=== PATIENT | female | born 1940 | race Caucasian/White ===

== ENCOUNTER 2016-02-23 12:50 | Observation (INO) | payer OTHER ==
[~2016-02-23] VITALS: Ht 160 cm; Wt 65.5 kg
--- NOTE | ~2016-02-23 | H ---
[facility] [place] [address] HISTORY AND PHYSICAL Name: VICENTE TORRES Room #: 427-P [facility].Daniella#: [id number] Admission: 02/23/16 Attend Phys: Dylan Fry MD Discharge: Date of : 44 Report #: [id number] THIS REPORT FOR: //name// CC: Neel Pena MD [facility] Jorge Fry DATE OF SERVICE: 02/23/2016 CHIEF COMPLAINT: Chest pain. HISTORY OF PRESENT ILLNESS: The patient is a 75-year-old female with history of severe peripheral vascular disease, COPD, smoking, ex-smoker, presented to the Emergency Room complaining of chest pain. Chest pain started at around 12:30 this afternoon while she was watching television. It was a sharp pain over the lower with radiation to the back and to the neck. Also, had mild shortness of breath. No cough expectoration. No fever or chills, no recent weight loss, weight gain. No nausea or vomiting. Workup in the Emergency Room, EKG showed left bundle-branch block and also normal troponin. The patient has severe peripheral vascular disease, has multiple stents in the subclavian and also in the lower extremity. She had coronary angiogram in 2011 which showed normal ejection fraction and normal coronary anatomy with the exception of minimal plaquing in the left anterior descending artery. PAST MEDICAL HISTORY: Significant for COPD, peripheral vascular disease, dyslipidemia, prior pneumonia, hysterectomy, multiple stents x 5 in peripheral vascular disease. No history of any peptic ulcer disease, bleeding disorder, no diabetes, no CVA. SOCIAL HISTORY: She is a former smoker, quit around 3-4 years ago. No history of alcohol abuse or illicit drug abuse. The patient lives alone. ALLERGIES: SHE IS ALLERGIC TO MORPHINE AND ADENOSINE. Please look at the nursing documentation for allergic reaction. HOME MEDICATIONS: Reviewed. FAMILY HISTORY: Significant for hypertension. No premature coronary artery disease. Mother had heart failure. REVIEW OF SYSTEMS: CONSTITUTIONAL: No recent weight loss, weight gain. EYES: No fever or chills. No change in vision. THROAT: Denies any sore throat. CARDIOVASCULAR: As above. No dizziness, palpitations. RESPIRATORY: No cough, expectoration. [facility] [address] [place] [address] HISTORY AND PHYSICAL Name: VICENTE TORRES Room #: 427-P [facility] Matthias#: [id number] Admission: 02/23/16 Attend Phys: Dylan Fry MD Discharge: Date of : 42 Report #: [id number] GASTROINTESTINAL: No nausea, vomiting, abdominal pain. GENITOURINARY: No dysuria, hematuria. NEUROLOGIC: No focal numbness or weakness of the extremities. PSYCHIATRIC: No anxiety or depression. A 12-point review of system is negative other than the positive and the negative dictated in the history of present illness and the review of system. PHYSICAL EXAMINATION: VITAL SIGNS: Blood pressure 164/97. Heart rate of 60 per minute, afebrile. GENERAL: The patient is awake and alert, not in acute respiratory distress. She rates her pain 2/10 at present, not in acute respiratory distress. HEENT: Pupils equal, reactive to light, nonicteric, conjunctivae. NECK: Supple, no JVD, no bruit, no lymphadenopathy. CARDIOVASCULAR SYSTEM: S1, S2, negative S3, no murmur. CHEST: Bilateral air entry present, clear to auscultation. ABDOMEN: Soft, bowel sounds present, no mass, no organomegaly, no tenderness. PERIPHERY: No pedal edema. No calf tenderness. Dorsalis pedis feeble to 1+ bilaterally, warm extremity. NEUROLOGICAL: No gross motor or sensory deficit. LABORATORY DATA: Reviewed. EKG showed sinus rhythm with left bundle-branch block. Magnesium is 1.2. Troponin has been negative so far. IMAGING: Chest x-ray showed no acute abnormality. There is mild bilateral diffuse interstitial pulmonary infiltrate. White count is 10.8, hemoglobin is 10.7, platelet is 204. BUN and creatinine are 32 and 1.2. Potassium is normal with a magnesium of 1.2. ASSESSMENT: 1. Chest pain, possible angina. The patient has multiple risk factors for coronary artery disease. She has an extensive history of peripheral vascular disease. 1. The patient will be admitted to the telemetry floor. She will have serial troponin. We will place her on aspirin and Lovenox. She will be continued on Plavix. We will consult Community Engagement Leader, Dr. Pena. 2. Peripheral vascular disease. The patient will be continued on Plavix. 3. Dyslipidemia. We will check her lipids in the morning. The patient will be continued on atorvastatin. 4. History of chronic obstructive pulmonary disease. The patient will be placed on DuoNeb treatment every 6 hours. 5. Hypomagnesemia. Magnesium has been replaced. We will check magnesium in the morning. 6. Deep venous thrombosis prophylaxis. She will be placed on Lovenox. [facility] [address] [place] [address] HISTORY AND PHYSICAL Name: VICENTE TORRES Room #: 427-P [facility] Oleg Rizzo#: [id number] Admission: 02/23/16 Attend Phys: Dylan Fry MD Discharge: Date of : 42 Report #: [id number] Treatment plan has been explained to the patient in detail. <ELECTRONICALLY SIGNED> By: Dylan Fry MD 02/23/16 1657 1457 1652 Dylan Fry MD /nt
--- NOTE | ~2016-02-23 | EKG ---
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
--- NOTE | ~2016-02-23 | HC ---
[facility] [place] [address] CONSULTATION Name: VICENTE TORRES Room #: 427-P [facility] Oleg Rizzo#: [id number] Admission: 02/23/16 Attend Phys: Dylan Fry MD Discharge: 02/24/16 Date of : 42 Report #: [id number] THIS REPORT FOR: //name// CC: Donn Fry HISTORY OF PRESENT ILLNESS: A 75-year-old female well known to myself. She is known to have only mild coronary disease, but significant peripheral vascular disease with a prior subclavian stent and SMA and celiac stents placed by myself and Dr. Wooten. The last cardiac catheterization was 02/2014. There was no significant occlusive coronary artery disease. Had not progressed since the last catheterization done in the hospital here in 2011. This catheterization was performed at [facility]. She has been compliant with her medications. However, she had an onset, while being frustrated by her computer today, of right-sided chest pain up into her right side of her neck. Given an aspirin by paramedics, refused nitroglycerin and pain free currently with negative enzymes. EKG is a low sinus rhythm with left bundle branch block and this has been previously noted, so there are no changes there. She had been compliant with her medications. She quit smoking 5 years ago. I saw her last in June of last year. She is on Lipitor, Estradiol, Proventil, Ropinirole, Plavix, Spiriva, CoQ10, prednisone, Benicar/HCT 20/12.5 and multivites. Laboratory work was relatively unremarkable here. LABORATORY DATA: Creatinine 1.1, potassium 4.3. Troponin is negative x 2, GFR 49. Lipids were favorable with an LDL of 52. Total cholesterol 160, H are H is 10.7 and 31.7, white count 10.1. Chest x-ray shows mild bilateral pulmonary infiltrates, possible some underlying pulmonary fibrosis. She does have longstanding tobacco, COPD. PAST MEDICAL HISTORY: Positive for the mild coronary disease from a catheterization in 02/2014; peripheral vascular disease with celiac, SMA and subclavian stents; COPD; hypertension; hypercholesterolemia; hysterectomy; appendectomy; cystocele; bladder surgery; cataracts; and tonsillectomy. SOCIAL HISTORY: She lives independently quit smoking 5 years ago. No alcohol. She is . FAMILY HISTORY: Negative for premature coronary disease. Mother did have some disease, but older. REVIEW OF SYSTEMS: Essentially negative except for stated above. PHYSICAL EXAMINATION: VITAL SIGNS: Blood pressure is 160/78, pulse 60s. HEENT: Eyes reveal xanthelasmas. Pharynx is clear. NECK: Shows preserved upstrokes without JVD or bruits. LUNGS: Slight prolonged expiratory phase, few fine basilar crackles. [facility] [address] [place] [address] CONSULTATION Name: VICENTE TORRES Room #: 427-P SHANEKA Rizzo#: [id number] Admission: 02/23/16 Attend Phys: Dylan Fry MD Discharge: 02/24/16 Date of : 44 Report #: [id number] CARDIOVASCULAR: Regular rate and rhythm, S1, S2 distant. ABDOMEN: Soft. No HSM or abdominal bruit. EXTREMITIES: Reveal distal pulses diminished, but intact. NEUROLOGIC: Nonfocal. SKIN: Warm and dry without xanthoma or ulcer. MUSCULOSKELETAL: Generalized arthritic changes. I did not ambulate her. ASSESSMENT: 1. Chest pain. I suspect noncardiac with cardiac catheterization last couple of years without significant disease and no progression from a catheterization in 2011. 2. Peripheral vascular disease with history of subclavian, superior mesenteric artery, and celiac stents. 3. Hypertension. 4. Hypercholesterolemia. 5. Chronic obstructive pulmonary disease. 6. Restless legs. 7. Prior heavy tobacco use. 8. Degenerative joint disease. RECOMMENDATIONS AND PLAN: I doubt we would need any further troponins, etiology of her pain may be of GI, possibly had a PPI, this does not appear to be cardiac. However, we will reevaluate in the morning if pain free and ambulating, will discharge and outpatient stress testing. I will discuss with Hospitalist Service in the a.m. and now is well known to myself and I will follow her up outpatient only. <ELECTRONICALLY SIGNED> By: Neel Pena MD, FACC 02/28/16 0936 1948 0344 Neel Pena MD, FACC /nt
[2016-02-23 12:50] VITALS: BP 158/55
[~2016-02-23 12:50] MED LIST: ACCUNEB SO1.25 MG/1 INH; ALBUTEROL NEB; ASPIRIN325 PO; ASPIRIN81 M2 PO; BENICAR HCT 201 EACH PO; BENICAR20 MG PO; CALCIUM 600 +1 EAC7 PO; CALCIUM W/VIT1 EACH PO; CARDIZEM CD180 MG PO; CARDIZEM CD240 MG PO; COLACE100 MG PO; COMBIVENT INH; ENABLEX15 MG PO; ESTRACE0.5 MG PO; FENOFIBRATE160 MG PO; FISH OIL 1,0001 EAC5 PO; FISH OIL 1,001000 M2 PO; LIPITOR10 MG PO; LOPRESSOR25 PO; METAMUCIL PAC1 UDPKT PO; METAMUCIL0.52 GM; MULTIVITAMIN PO; MULTIVITAMINS1 EAC7; OMEPRAZOLE40 MG PO; PHENERGAN 25 MG25 M1 PO; PLAVIX 75 MG TA75 M1 PO; PLAVIX 75 MG TA75 MG PO; PREDNISONE 5 MG5 M1 PO; PREDNISONE 5 MG5 MG PO; PREMARIN0.3 MG PO; PROAIR HFA8.5 GM; PROVENTIL; SEREVENT DISKU50 MCG IH; SPIRIVA INH; STOOL SOFTENER50 MG; TOPROL XL50 MG PO; TOVIAZ4 M1 PO; TOVIAZ8 MG PO; XANAX 0.25 MG0.25 MG PO
[2016-02-23 13:09] LABS: HEMATOCRIT 31.2 % (37.0-47.0); HEMOGLOBIN 10.7 gm/dL (12.0-15.0); MCH 32.1 pg (26.0-34.0); MCHC 34.2 % (28.0-37.0); MCV 93.9 fL (80.0-100.0); PLATELET COUNT 204 thou/uL (150-400); RBC 3.32 mil/uL (4.20-5.00); RDW 13.5 % (10.5-14.5); WBC 10.1 thou/uL (4.0-11.0)
[2016-02-23 13:11] LABS: MANUAL DIFF YES
[2016-02-23 13:21] LABS: ANION GAP 7 mmol/L (7-16); BUN 32 mg/dL (7-18); CALCIUM 9.4 mg/dL (8.5-10.1); CHLORIDE 105 mmol/L (98-107); CO2 30 mmol/L (21-32); CREATININE 1.1 mg/dL (0.6-1.3); GLUCOSE 132 mg/dL (70-99); POTASSIUM 4.3 mmol/L (3.5-5.1); SODIUM 142 mmol/L (136-145)
[2016-02-23 13:31] LABS: ALBUMIN 3.6 g/dL (3.4-5.0); ALKALINE PHOSPHATASE 73 U/L (46-116); MAGNESIUM 1.2 mg/dL (1.8-2.4); SGOT 11 U/L (15-37); SGPT 25 U/L (30-65); TOTAL BILIRUBIN 0.4 mg/dL (<0.1-1.0); TOTAL PROTEIN 6.5 g/dL (6.4-8.2); TROPONIN-I < 0.04 ng/mL (<0.04-0.07)
[2016-02-23 13:33] LABS: ABSOLUTE NEUTROPHILS 8.4 thou/uL (1.4-8.2); TOTAL CELL COUNT 100
[2016-02-23 13:34] LABS: PLATELET ESTIMATE NORMAL
[2016-02-23 15:15] LABS: CHOLESTEROL 160 mg/dL (<200); HDL CHOLESTEROL 84 mg/dL (>40); LDL CHOLESTEROL 52 mg/dL (<100); TC:HDL 1.9 Ratio (Not establshd); TRIGLYCERIDE 124 mg/dL (<150); VLDL 25 mg/dL (<40)
[2016-02-23 16:24] VITALS: BP 154/55
[2016-02-23 16:51] VITALS: BP 163/78
[2016-02-23 20:00] VITALS: BP 185/57
[2016-02-24 04:20] VITALS: BP 159/73
[2016-02-24 05:54] LABS: ABSOLUTE NEUTROPHILS 6.1 thou/uL (1.4-8.2); BASOPHILS 0.4 % (0.0-2.0); EOSINOPHILS 3.4 % (0.0-3.0); HEMOGLOBIN 11.3 gm/dL (12.0-15.0); LYMPHOCYTES 18.9 % (24.0-44.0); MCH 31.7 pg (26.0-34.0); MCHC 33.1 % (28.0-37.0); MCV 95.7 fL (80.0-100.0); MONOCYTES 6.7 % (1.0-8.0); PLATELET COUNT 219 thou/uL (150-400); POLYS 70.6 % (36.0-66.0); RBC 3.55 mil/uL (4.20-5.00); RDW 13.3 % (10.5-14.5); WBC 8.6 thou/uL (4.0-11.0)
[2016-02-24 06:08] LABS: CALCIUM 9.2 mg/dL (8.5-10.1); CREATININE 1.1 mg/dL (0.6-1.3); MAGNESIUM 1.6 mg/dL (1.8-2.4); POTASSIUM 4.3 mmol/L (3.5-5.1)
[2016-02-24 06:12] LABS: MANUAL DIFF NO
[2016-02-24 08:53] VITALS: BP 153/61
[2016-02-24] MEDS ORDERED: CO Q-10100 MG PO (09:13)
[2016-02-24] MEDS ORDERED: ADULT LOW DOSE81 MG PO (11:31)
[2016-02-24] MEDS ORDERED: MAGNESIUM400 MG PO (11:31)
[2016-02-24 11:54] VITALS: BP 153/61
== END 2016-02-24 12:15 | disposition home or self-care (01) ==
LOC: ER 12:50 → EROBS 14:05 → 4E 16:48
PROVIDERS: Emergency Medicine; Internal Medicine
DX: R07.9 Chest pain, unspecified (principal); J44.9 Chronic obstructive pulmonary disease, unspecified; E83.42 Hypomagnesemia; I73.9 Peripheral vascular disease, unspecified; I82.409 Acute embolism and thrombosis of unspecified deep veins of unspecified lower extremity; E78.5 Hyperlipidemia, unspecified; I10 Essential (primary) hypertension; M19.90 Unspecified osteoarthritis, unspecified site; Z87.891 Personal history of nicotine dependence; Z79.01 Long term (current) use of anticoagulants; Z79.891 Long term (current) use of opiate analgesic; Z79.899 Other long term (current) drug therapy

== ENCOUNTER 2016-11-05 09:29 | Inpatient (IN) | payer OTHER ==
[~2016-11-05] VITALS: Ht 140 cm; Wt 64.3 kg
--- NOTE | ~2016-11-05 | 2DMMODE ---
[facility] [address] [place] [address] 2 D/M-MODE ECHOCARDIOGRAM Name: VICENTE TORRES Room #: 209-P [facility] IN ..#: [id number] Admission: 11/05/16 Attend Phys: Neel Pena, Discharge: Date of : 44 Date of Service: 11/05/16 1716 Report #: [id number] THIS REPORT FOR: //name// APPROVED REPORT Study performed: 11/05/2016 14:44:14 EXAM: Comprehensive 2D, Doppler, and color-flow Echocardiogram Patient Location: Bedside Room #: 209 Status: routine BSA: 1.66 HR: 69 bpm BP: 142/55 mmHg Rhythm: NSR Other Information Study Quality: Adequate Indications Chest pain, LV function. Hx: CAD, PVD, COPD, HTN, HLP 2D Dimensions RVDd: 35.49 mm LVEF(%): 40.29 (>50%) IVSd: 10.95 (7-11mm) LVOT Diam: 20.41 (18-24mm) LVDd: 41.72 mm PWd: 11.01 (7-11mm) Ascending Ao: 31.84 (22-36mm) LVDs: 33.62 (25-40mm) Aortic Root: 30.10 mm De La Cruz's LVEF: 40.29 % Volumes Left Atrial Volume (Systole) Single Plane 4CH: 46.31 mL Single Plane 2CH: 49.77 mL LA ESV Index: 32.00 mL/m2 Aortic Valve AoV Peak Haider.: 1.50 m/s AO Peak Gr.: 9.03 mmHg LVOT Max P.91 mmHg LVOT Max V: 0.85 m/s LORRAINE Vmax: 1.86 cm2 AI Vmax: 4.44 m/s AI Fisher: 3.36 m/s2 AI PHT: 383.04 ms [facility] [place] [address] 2 D/M-MODE ECHOCARDIOGRAM Name: VICENTE TORRES Room #: 209-P [facility] IN .R.#: [id number] Admission: 11/05/16 Attend Phys: Neel Pena, Discharge: Date of : 44 Date of Service: 11/05/16 1716 Report #: [id number] Mitral Valve E/A Ratio: 0.8 MV Decel. Time: 198.59 ms MV E Max Haider.: 0.97 m/s MV A Haider.: 1.23 m/s MV PHT: 57.59 ms IVRT: 119.95 ms Pulmonary Valve PV Peak Haider.: 1.10 m/s PV Peak Gr.: 4.86 mmHg Pulmonary Vein P Vein S: 0.64 m/s P Vein A: 0.25 m/s P Vein D: 0.34 m/s P Vein A Dur.: 110.7 msec P Vein S/D Ratio: 1.88 Tricuspid Valve TR Peak Haider.: 1.84 m/s RAP Estimate: 5.00 mmHg TR Peak Gr.: 13.56 mmHg PA Pressure: 19.00 mmHg Left Ventricle The left ventricle is normal size. There is normal left ventricular wall thickness. Left ventricular systolic function is mildly decreased. LVEF is 45%. Mild diastolic dysfunction is present (impaired relaxation pattern). Right Ventricle The right ventricle is normal size. The right ventricular systolic function is normal. Atria The left atrium size is normal. The right atrium size is normal. Aortic Valve The aortic valve is normal in structure. Moderate aortic regurgitation. There is no aortic valvular stenosis. Mitral Valve Mitral valve leaflets are mildly thickened. Mild to moderate mitral regurgitation. Tricuspid Valve The tricuspid valve is normal in structure. Trace tricuspid regurgitation. Estimated PAP is 20[place]. [place] [address] 2 D/M-MODE ECHOCARDIOGRAM Name: TJ TORRESHENRYTHI Yony Room #: 209-P [facility].#: [id number] Admission: 11/05/16 Attend Phys: Neel Pena, Discharge: Date of : 44 Date of Service: 11/05/16 1716 Report #: [id number] Pulmonic Valve The pulmonary valve is normal in structure. Trace pulmonic regurgitation. Great Vessels The aortic root is normal in size. The ascending aorta is normal in size. IVC is normal in size and collapses >50% with inspiration. Pericardium There is no pericardial effusion. <Conclusion> The left ventricle is normal size. Left ventricular systolic function is mildly decreased. LVEF is 45%. Mild diastolic dysfunction is present (impaired relaxation pattern). The right ventricle is normal size. The left atrium size is normal. The right atrium size is normal. Moderate aortic regurgitation. There is no aortic valvular stenosis. Mild to moderate mitral regurgitation. Trace tricuspid regurgitation. Estimated PAP is 20mmHg. There is no pericardial effusion. <ELECTRONICALLY SIGNED> By: Neel Pena MD, FACC 11/05/161715 15 15 Neel Pena MD, FACC /INF
--- NOTE | ~2016-11-05 | EKG ---
[place] [address] [facility] [place] [address] ELECTROCARDIOGRAM REPORT Name: VICENTE TORRES Room #: 209-P ADM IN M.R.#: [id number] Admission: 11/05/16 Attend Phys: Neel Pena MD, Discharge: Date of : 44 Report #: [id number] THIS REPORT FOR: //name// [facility] ED Test Date: 2016-11-05 Test Time: 09:32:10 Pat Name: VICENTE TORRES Department: Room: 209 Gender: F Curriculum Developer: geovanni : 1940 Requested By: Lois Boykin Order Number: [id number] MD: Kristian Mandujano Measurements Intervals [place] Rate: 83 P: 80 WI: 207 QRS: 12 QRSD: 118 T: 88 QT: 425 QTc: 500 Interpretive Statements Sinus rhythm left bundle branch block Compared to ECG 02/23/2016 12:51:37 No significant changes Electronically Signed On 11-06-2016 7:44:32 CDT by Kristian Mandujano [email or web address] <ELECTRONICALLY SIGNED> By: Kristian Mandujano MD, [facility] 11/06/16 0744 1 1 Kristian Mandujano MD, [facility] /EPI
--- NOTE | ~2016-11-05 | EKG ---
[place] [address] [facility] [place] [address] ELECTROCARDIOGRAM REPORT Name: VICENTE TORRES Room #: 209-P ADM IN M.R.#: [id number] Admission: 11/05/16 Attend Phys: Neel Pena MD, Discharge: Date of : 44 Report #: [id number] THIS REPORT FOR: //name// [facility] Test Date: 2016-11-06 Test Time: 06:08:23 Pat Name: VICENTE TORRES Department: Room: 209 P Gender: F Child Nutrition Assistant: LALIT : 1940 Requested By: Lois Boykin Order Number: [id number] MD: Kristian Mandujano Measurements Intervals [place] Rate: 77 P: 77 [place]: 201 QRS: 21 QRSD: 114 T: 65 QT: 448 QTc: 508 Interpretive Statements Sinus rhythm Left bundle branch block Compared to ECG 02/23/2016 12:51:37 no significant change was found Electronically Signed On 11-06-2016 8:13:25 CDT by Kristian Mandujano [email or web address] <ELECTRONICALLY SIGNED> By: Kristian Mandujano MD, [facility] 11/06/1613 7 0608 Kristian Mandujano MD, FAC /EPI
--- NOTE | ~2016-11-05 | D ---
[facility] [place] [address] DISCHARGE SUMMARY Name: VICENTE TORRES Room #: 209-P [facility] IN .R.#: [id number] Admission: 11/05/16 Attend Phys: Neel Pena MD, Discharge: 11/06/16 Date of : 44 Report #: [id number] THIS REPORT FOR: //name// CC: Neel Patel DATE OF SERVICE: 11/06/2016 HOSPITAL COURSE: The patient is a 76-year-old female who was admitted with some recurrent chest pain and pressure. She has a history of stable coronary artery disease, moderate LAD and circ disease from a catheterization done in 2012, and has had prior peripheral stents with SMA and celiac stenosis with stents. Mild carotid disease. Subsequently, chest pain with some typical and atypical features. EKG was relatively unchanged. She was ruled out by troponin, underwent a nuclear stress testing, which showed no area of ischemia. Please see that report. She is up and ambulating and feeling well. She has not had any recurrent . She was found to be moderately anemic, hemoglobin of 9.8 today. The bowel workup has been negative. She has been on baby aspirin and Plavix. Plavix has been held and I will hold that for the time being. She will be discharged on her other medications; prednisone, atorvastatin, CoQ10. Meloxicam is also being held. Losartan 100, Protonix 20, Xanax as needed, and Tylenol. Her echo Doppler was performed. EF was lower limits of normal or mildly reduced 45% range; this has been her baseline. She has mild diastolic dysfunction, mild valvular insufficiency. She has followup scheduled with me in 6 weeks. She will continue to slowly increase her regular aerobic activity and has followup regarding this anemia. I will defer iron supplement to her primary and further followup which primary has been made aware. DISCHARGE DIAGNOSES: 1. Chest pain, negative workup for coronary etiology. 2. Anemia, which has had some workup. Still continued as an outpatient. 3. Peripheral vascular disease with history of SMA and celiac stents which were patent for ultrasound in July of this year. 4. Hypertension. 5. Hypercholesterolemia. 6. Degenerative joint disease. Other laboratory workup reports creatinine was 1.1, potassium 3.7; H and H was 9.7 and 27.9. No white count elevation. By: [id number] Neel Pena MD, FACC /nt
[2016-11-05 09:29] VITALS: BP 175/71
[~2016-11-05 09:29] MED LIST changes: +ADULT LOW DOSE81 MG PO; +CO Q-10100 MG PO; +MAGNESIUM400 MG PO
[2016-11-05 09:50] LABS: ABSOLUTE NEUTROPHILS 6.9 thou/uL (1.4-8.2); BASOPHILS 0.9 % (0.0-2.0); EOSINOPHILS 2.2 % (0.0-3.0); HEMATOCRIT 27.9 % (37.0-47.0); HEMOGLOBIN 9.7 gm/dL (12.0-15.0); LYMPHOCYTES 16.6 % (24.0-44.0); MCH 32.5 pg (26.0-34.0); MCHC 34.8 g/dL (28.0-37.0); MCV 93.2 fL (80.0-100.0); MONOCYTES 7.9 % (1.0-8.0); PLATELET COUNT 257 thou/uL (150-400); POLYS 72.4 % (36.0-66.0); RDW 13.7 % (10.5-14.5); WBC 9.5 thou/uL (4.0-11.0)
[2016-11-05 09:57] LABS: ANION GAP 6 mmol/L (7-16); BUN 26 mg/dL (7-18); CALCIUM 8.9 mg/dL (8.5-10.1); CHLORIDE 105 mmol/L (98-107); CO2 27 mmol/L (21-32); CREATININE 1.1 mg/dL (0.6-1.0); GLUCOSE 92 mg/dL (74-106); POTASSIUM 3.7 mmol/L (3.5-5.1); SODIUM 138 mmol/L (136-145)
[2016-11-05 09:58] LABS: MANUAL DIFF NO
[2016-11-05] MEDS ORDERED: PROBIOTIC1 EAC2 PO (10:00)
[2016-11-05] MEDS ORDERED: MOBIC7.5 MG PO (10:00)
[2016-11-05] MEDS ORDERED: ROPINIROLE HCL2 M1 PO (10:00)
[2016-11-05 10:06] LABS: ALKALINE PHOSPHATASE 65 U/L (46-116); SGOT 21 U/L (15-37); SGPT 23 U/L (30-65); TOTAL BILIRUBIN 0.3 mg/dL (<0.1-1.0); TOTAL PROTEIN 6.3 g/dL (6.4-8.2); TROPONIN-I < 0.04 ng/mL (<0.04-0.07)
[2016-11-05 10:13] LABS: ALBUMIN 3.5 g/dL (3.4-5.0)
[2016-11-05 11:31] VITALS: BP 143/43
[2016-11-05 11:43] VITALS: BP 142/55
[2016-11-05 15:45] VITALS: BP 149/61
[2016-11-05 20:30] VITALS: BP 137/81
[2016-11-06] VITALS: BP 142/61
[2016-11-06 04:45] VITALS: BP 150/60
[2016-11-06 08:41] VITALS: BP 133/54
[2016-11-06 17:27] VITALS: BP 133/54
== END 2016-11-06 18:24 | disposition home or self-care (01) | DRG 303 ==
LOC: ER 09:29 → 2N 11:20 → ENTRNSPT 11-06 18:17 → 2N 11-06 18:24
PROVIDERS: Physician Assistant
DX: I25.10 Atherosclerotic heart disease of native coronary artery without angina pectoris (principal); R07.9 Chest pain, unspecified; E78.5 Hyperlipidemia, unspecified; J44.9 Chronic obstructive pulmonary disease, unspecified; I73.9 Peripheral vascular disease, unspecified; Z96.1 Presence of intraocular lens; D64.9 Anemia, unspecified; E78.00 Pure hypercholesterolemia, unspecified; M19.90 Unspecified osteoarthritis, unspecified site; I11.0 Hypertensive heart disease with heart failure; I50.9 Heart failure, unspecified; Z90.89 Acquired absence of other organs; Z90.710 Acquired absence of both cervix and uterus; Z87.01 Personal history of pneumonia (recurrent); Z87.891 Personal history of nicotine dependence; Z98.42 Cataract extraction status, left eye; Z98.41 Cataract extraction status, right eye; Z95.5 Presence of coronary angioplasty implant and graft; Z87.442 Personal history of urinary calculi; Z88.8 Allergy status to other drugs, medicaments and biological substances; Z88.5 Allergy status to narcotic agent
CPT/HCPCS: 10081

== ENCOUNTER → 2017-08-26 | Outpatient (CLI) | payer OTHER ==
[~2017-08-26] MED LIST changes: +IRBESARTAN-HCT1 EACH PO; +MOBIC7.5 MG PO; +PROBIOTIC1 EAC2 PO; +ROPINIROLE HCL2 M1 PO
[2017-08-26 09:12] LABS: CREATININE 1.3 mg/dL (0.6-1.0)
== END ==
LOC: CAT 08:34
PROVIDERS: Specialist
DX: K57.30 Diverticulosis of large intestine without perforation or abscess without bleeding (principal); N21.0 Calculus in bladder; K55.1 Chronic vascular disorders of intestine; J44.9 Chronic obstructive pulmonary disease, unspecified

== ENCOUNTER 2017-11-17 18:42 | Inpatient (IN) | payer OTHER ==
[~2017-11-17] VITALS: Ht 160 cm; Wt 69.5 kg
--- NOTE | ~2017-11-17 | EKG ---
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 Manager: MICHELA : 1940 Requested By: Kiko Rosas Order Number: [id number] MD: Rachid De Leon Measurements Intervals [place] Rate: 82 P: 85 SD: 210 QRS: 41 QRSD: 118 T: 116 QT: 436 QTc: 510 Interpretive Statements Sinus rhythm Probable left atrial enlargement Incomplete left bundle branch block LVH with secondary repolarization abnormality Anterior Q waves, possibly due to LVH Compared to ECG 11/06/2016 06:08:23 Left ventricular hypertrophy now present Early repolarization now present Electronically Signed On 11-18-2017 9:55:43 CDT by Rachid De Leon [email or web address] <ELECTRONICALLY SIGNED> By: Rachid De Leon MD 11/18/17 0955 0021 0021 Rachid De Leon MD /EPI
--- NOTE | ~2017-11-17 | O ---
[facility] [place] [address] OPERATIVE REPORT Name: MELISSATJGIOVANI Bhakta Room #: 220-P [facility] IN .R.#: [id number] Admission: 11/17/17 Attend Phys: Dean Blackburn MD Discharge: Date of : 44 Report #: [id number] THIS REPORT FOR: //name// CC: Donn Chavez DATE OF SERVICE: 11/18/2017 PREOPERATIVE DIAGNOSIS: Left elbow dislocation with comminuted radial head fracture, displaced. POSTOPERATIVE DIAGNOSES: Left elbow fracture dislocation, comminuted radial head fracture, displaced; lateral ulnar collateral ligament tear; left medial elbow laceration measuring approximately 1.5 cm. PROCEDURE PERFORMED: Left elbow radial head replacement, lateral collateral ligament repair, excision of radial head fracture fragments, irrigation and debridement of left medial elbow wound with primary closure. SURGEON: Bernardo Dumont M.D. CRULLER MAKER MACHINE: Payton Crooks PA-C. ANESTHESIA: General per LMA. FLUIDS: 700 mL crystalloid. ESTIMATED BLOOD LOSS: 10 mL. TOURNIQUET TIME: Approximately 45 minutes at 250 mmHg. IMPLANTS UTILIZED: Acumed size 9+0 radial stem with a 22-mm standard radial head. DESCRIPTION OF PROCEDURE: After proper identification of the patient and operative site in preoperative holding area, the operative site was signed by myself. Prophylactic antibiotics given. The patient was initially seen by my partner, Dr. Eugenio Chavez. Her original elbow dislocation was reduced in the ER. We discussed the risks, benefits, alternatives and potential complications of her injury as well as treatment. The patient and her family members wished to proceed with an attempted radial head replacement. We discussed potential post-injury and postoperative complications at length. They demonstrated an understanding of the procedure and wished to proceed with the above. The patient was brought back to the operative suite after induction of satisfactory general anesthesia. Left elbow was examined. The splint was removed. [facility] [address] [place] [address] OPERATIVE REPORT Name: TJ TORRESGIOVANI Bhakta Room #: 220-P [facility] IN [facility]#: [id number] Admission: 11/17/17 Attend Phys: Dean Blackburn MD Discharge: Date of : 42 Report #: [id number] elbow wound measuring approximately 1.5 cm was noted. This did not communicate, but the joint was thoroughly irrigated with normal saline and closed with katia. The patient had very thin skin and this looks like it had originally been washed out and attempted to be steri-stripped in the ER, the Steri-Strips were not holding this. The elbow could be reduced, but also easily dislocated. An incision over the lateral aspect of the elbow was planned and a direct lateral approach was planned. At this point, the skin was incised sharply. The patient had torn in the lateral collateral ligament off the distal humerus and this tear was carried longitudinally to the annular ligament to expose the radial head. Care was taken for forearm position and rotation to minimize injury to the posterior interosseous nerve and to avoid any vigorous retraction of the soft tissues to minimize potential neurologic injury. The patient was able to minimally flex and extend her fingers and thumb preoperatively, but was limited due to pain. Multiple fracture fragments were noted. There were 2 primary fracture fragments of the radial head and 5 other smaller pieces. This comminuted fracture did not appear to be amenable to repair. This was removed and the joint was thoroughly irrigated with antibiotic irrigant. No other debris was noted. The stem was sized up to a size 9 Acumed stem and the head measurement was best reproduced by 22 mm head. A trial implant with +0 length on the neck was chosen and the radial neck fracture was smooth with the rotating reamer. The 9+0 22-mm head was carefully positioned. The joint was stable, did not appear to be overstuffed and intraoperative radiographs revealed a well-positioned prosthesis and reduced elbow. Trial implants were removed. Final implant was assembled and carefully impacted into position with care taken to place the laser lines laterally with the forearm in neutral rotation. It was carefully impacted into position, was well seated, reduced and again demonstrated satisfactory reduction in multiple planes and orthogonal planes with C-arm. At this point, the joint was again thoroughly irrigated with normal saline with antibiotic irrigant. The lateral collateral ligament was repaired with a DePuy Mitek anchor and drill holes and bone tunnel prepared with a towel clip and a #2 FiberWire for the more proximal aspect of the lateral collateral ligament. This nicely reduced the ligament. The elbow was stable throughout full range of motion, could be fully pronated and supinated. The lateral incision was again irrigated, 3-0 Vicryl was used to close the deeper tissues followed by katia due to the thin skin. Medial incision is benign as previously mentioned. Sterile dressing was applied. A 20 mL of 0.2% Naropin was injected around the skin incision prior to closure to aid in postoperative pain control and a sterile dressing and posterior splint in neutral rotation with the forearm and wrist stabilized was placed. Qualified shop assistant was utilized throughout the entire procedure to aid in patient limb positioning, visualization and careful retraction of the soft tissues, instrument passage, closure and dressing application. At the time of dictation, she was still in [address] [address] OPERATIVE REPORT Name: VICENTE TORRES Room #: 220-P ADM IN M.R.#: [id number] Admission: 11/17/17 Attend Phys: Dean Blackburn MD Discharge: Date of : 42 Report #: [id number] the operative suite with anticipated discharge to recovery room in stable condition. <ELECTRONICALLY SIGNED> By: Bernardo Dumont MD 11/21/17 1836 1243 1318 Bernardo Dumont MD /nt
--- NOTE | ~2017-11-17 | EKG ---
[place] [address] [facility] [address] [place] [address] ELECTROCARDIOGRAM REPORT Name: VICENTE TORRES Room #: 449-I ADM IN M.R.#: [id number] Admission: 11/17/17 Attend Phys: Dean Blackburn MD Discharge: Date of : 42 Report #: [id number] THIS REPORT FOR: //name// [facility] ED Test Date: 2017-11-18 Test Time: 00:21:02 Pat Name: VICENTE TORRES Department: Room: 449 I Gender: F Boom Worker: MICHELA : 1940 Requested By: Kiko Rosas Order Number: [id number] MD: Measurements Intervals [place] Rate: 82 P: 85 FL: 210 QRS: 41 QRSD: 118 T: 116 QT: 436 QTc: 510 Interpretive Statements Sinus rhythm Probable left atrial enlargement Incomplete left bundle branch block LVH with secondary repolarization abnormality Anterior Q waves, possibly due to LVH Prolonged QT interval Compared to ECG 11/06/2016 06:08:23 Left ventricular hypertrophy now present Early repolarization now present Q waves now present Prolonged QT interval now present [email or web address] By: 002 0021 Epiphany [place], [place] /EPI
[2017-11-17 18:46] VITALS: BP 136/55
[2017-11-17] MEDS ORDERED: WELCHOL 625 MG625 MG PO (19:01)
[2017-11-17] MEDS ORDERED: LEVSIN0.125 MG PO (19:02)
[2017-11-17 19:05] LABS: ABSOLUTE NEUTROPHILS 6.2 thou/uL (1.4-8.2); BASOPHILS 0.2 % (0.0-2.0); EOSINOPHILS 3.1 % (0.0-3.0); HEMATOCRIT 29.5 % (37.0-47.0); HEMOGLOBIN 10.2 gm/dL (12.0-15.0); LYMPHOCYTES 17.2 % (24.0-44.0); MCH 31.1 pg (26.0-34.0); MCHC 34.6 g/dL (28.0-37.0); MONOCYTES 8.1 % (1.0-8.0); PLATELET COUNT 243 thou/uL (150-400); POLYS 71.4 % (36.0-66.0); RBC 3.27 mil/uL (4.20-5.00); RDW 13.2 % (10.5-14.5); WBC 8.7 thou/uL (4.0-11.0)
[2017-11-17 19:11] LABS: CALCIUM 8.9 mg/dL (8.5-10.1); CREATININE 1.3 mg/dL (0.6-1.0); POTASSIUM 4.1 mmol/L (3.5-5.1)
[2017-11-18] VITALS (11 sets, daily range): BP systolic 118–144; BP diastolic 36–65
[2017-11-18 00:05] LABS: APTT 24.3 Seconds (24.5-32.8); PROTIME 10.1 Seconds (9.3-11.4)
[2017-11-19 06:07] LABS: ABSOLUTE NEUTROPHILS 9.8 thou/uL (1.4-8.2); BASOPHILS 0.4 % (0.0-2.0); EOSINOPHILS 1.6 % (0.0-3.0); HEMATOCRIT 28.6 % (37.0-47.0); HEMOGLOBIN 9.6 gm/dL (12.0-15.0); LYMPHOCYTES 8.6 % (24.0-44.0); MCH 30.7 pg (26.0-34.0); MCHC 33.6 g/dL (28.0-37.0); MCV 91.2 fL (80.0-100.0); MONOCYTES 10.9 % (1.0-8.0); PLATELET COUNT 219 thou/uL (150-400); POLYS 78.5 % (36.0-66.0); RBC 3.13 mil/uL (4.20-5.00); RDW 13.2 % (10.5-14.5); WBC 12.5 thou/uL (4.0-11.0)
[2017-11-19 06:18] LABS: CALCIUM 8.9 mg/dL (8.5-10.1); CREATININE 1.6 mg/dL (0.6-1.0); MAGNESIUM 1.5 mg/dL (1.8-2.4); POTASSIUM 3.7 mmol/L (3.5-5.1)
[2017-11-19 08:36] VITALS: BP 121/34
[2017-11-19 20:18] VITALS: BP 133/47
[2017-11-20 08:01] VITALS: BP 116/42
[2017-11-20 12:21] LABS: HEMATOCRIT 26.6 % (37.0-47.0); HEMOGLOBIN 9.1 gm/dL (12.0-15.0); MCH 31.6 pg (26.0-34.0); MCHC 34.3 g/dL (28.0-37.0); MCV 92.3 fL (80.0-100.0); RBC 2.88 mil/uL (4.20-5.00); RDW 12.9 % (10.5-14.5); WBC 8.7 thou/uL (4.0-11.0)
[2017-11-20 12:40] LABS: ALBUMIN 2.6 g/dL (3.4-5.0); CALCIUM 8.3 mg/dL (8.5-10.1); MAGNESIUM 1.8 mg/dL (1.8-2.4); POTASSIUM 3.6 mmol/L (3.5-5.1); TOTAL BILIRUBIN 0.5 mg/dL (<0.1-1.0); TOTAL PROTEIN 5.9 g/dL (6.4-8.2)
[2017-11-20] MEDS ORDERED: CYMBALTA30 MG PO (15:33)
[2017-11-20] MEDS ORDERED: IPRAT-ALBUT 0.5-3 ML INH (15:34)
[2017-11-20] MEDS ORDERED: MOBIC7.5 MG PO (15:34)
[2017-11-20 20:50] VITALS: BP 124/49
[2017-11-21 07:12] LABS: HEMATOCRIT 24.1 % (37.0-47.0); HEMOGLOBIN 8.2 gm/dL (12.0-15.0); MCH 31.1 pg (26.0-34.0); MCHC 34.2 g/dL (28.0-37.0); RBC 2.64 mil/uL (4.20-5.00); WBC 6.6 thou/uL (4.0-11.0)
[2017-11-21 07:20] VITALS: BP 125/61
[2017-11-21 07:32] LABS: CALCIUM 8.7 mg/dL (8.5-10.1); CREATININE 0.9 mg/dL (0.6-1.0); MAGNESIUM 1.9 mg/dL (1.8-2.4); POTASSIUM 4.2 mmol/L (3.5-5.1)
[2017-11-21 11:27] LABS: URINE BILIRUBIN NEGATIVE (Negative); URINE BLOOD TRACE (Negative); URINE COLOR YELLOW; URINE GLUCOSE-RANDOM* NEGATIVE (Negative); URINE KETONES NEGATIVE (Negative); URINE LEUKOCYTES-REFLEX 2+ (Negative); URINE NITRITE-REFLEX NEGATIVE (Negative); URINE UROBILINOGEN 0.2 E.U./dl (0.2-1.0)
[2017-11-21 11:28] LABS: URINE CLARITY HAZY
[2017-11-21 11:37] LABS: URINE PROTEIN (DIPSTICK) 1+ (Negative)
[2017-11-21 12:14] LABS: SQUAMOUS >10 Many /LPF (0-3)
[2017-11-21 12:15] LABS: CASTS None Seen /LPF (None Seen); TRIPLE PHOSPHATE CRYSTALS 4-10 Moderate /LPF (None Seen)
[2017-11-21 12:16] LABS: URINE WBC-REFLEX 0-5 Rare /HPF (0-5)
[2017-11-21 12:17] LABS: URINE RBC None Seen /HPF (0-2)
[2017-11-21 19:41] VITALS: BP 137/47
[2017-11-22 07:55] VITALS: BP 122/46
[2017-11-22 08:21] LABS: HEMATOCRIT 25.2 % (37.0-47.0); MCH 30.1 pg (26.0-34.0); MCHC 31.6 g/dL (28.0-37.0); MCV 95.3 fL (80.0-100.0); RBC 2.65 mil/uL (4.20-5.00); RDW 13.7 % (10.5-14.5); WBC 5.8 thou/uL (4.0-11.0)
[2017-11-22 08:32] LABS: CALCIUM 8.8 mg/dL (8.5-10.1); CREATININE 0.9 mg/dL (0.6-1.0); MAGNESIUM 1.8 mg/dL (1.8-2.4); POTASSIUM 4.1 mmol/L (3.5-5.1)
[2017-11-22] MEDS ORDERED: ENOXAPARIN30 MG/0.1 SUBQ (11:27)
[2017-11-22] MEDS ORDERED: HYDROCODONE-AP1 EAC6 PO (11:28)
[2017-11-22] MEDS ORDERED: PLAVIX 75 MG TA75 M1 PO (11:28)
[2017-11-22] MEDS ORDERED: COLACE100 MG PO (11:29)
== END 2017-11-22 16:24 | DRG 483 ==
LOC: ER 18:42 → 4W 23:21 → EROBS 23:21 → 4W 11-18 00:47 → SICU 11-19 16:14
PROVIDERS: Internal Medicine; Nurse Practitioner; Physician Assistant
PROC: 0XQCXZZ Repair Left Elbow Region, External Approach (ICD-10-PCS; 2017-11-17)
PROC: 0HQ1XZZ Repair Face Skin, External Approach (ICD-10-PCS; 2017-11-17)
PROC: 0MQ40ZZ Repair Left Elbow Bursa and Ligament, Open Approach (ICD-10-PCS; principal; 2017-11-18)
PROC: 0RRM0JZ Replacement of Left Elbow Joint with Synthetic Substitute, Open Approach (ICD-10-PCS; principal; 2017-11-18)
DX: S52.122A Displaced fracture of head of left radius, initial encounter for closed fracture (principal); S12.9XXA Fracture of neck, unspecified, initial encounter; N17.9 Acute kidney failure, unspecified; J96.11 Chronic respiratory failure with hypoxia; I13.0 Hypertensive heart and chronic kidney disease with heart failure and stage 1 through stage 4 chronic kidney disease, or unspecified chronic kidney disease; J44.9 Chronic obstructive pulmonary disease, unspecified; E78.5 Hyperlipidemia, unspecified; I25.10 Atherosclerotic heart disease of native coronary artery without angina pectoris; S00.83XA Contusion of other part of head, initial encounter; N18.9 Chronic kidney disease, unspecified; D64.9 Anemia, unspecified; I65.29 Occlusion and stenosis of unspecified carotid artery; Z66 Do not resuscitate; G89.29 Other chronic pain; N30.90 Cystitis, unspecified without hematuria; R10.9 Unspecified abdominal pain; F41.9 Anxiety disorder, unspecified; G47.33 Obstructive sleep apnea (adult) (pediatric); I73.9 Peripheral vascular disease, unspecified; I50.9 Heart failure, unspecified; Z98.42 Cataract extraction status, left eye; Z98.41 Cataract extraction status, right eye; Z87.442 Personal history of urinary calculi; Z95.820 Peripheral vascular angioplasty status with implants and grafts; Z90.49 Acquired absence of other specified parts of digestive tract; Z90.710 Acquired absence of both cervix and uterus; Z95.5 Presence of coronary angioplasty implant and graft; Z87.01 Personal history of pneumonia (recurrent); Z88.6 Allergy status to analgesic agent; Z88.8 Allergy status to other drugs, medicaments and biological substances; Z87.891 Personal history of nicotine dependence; Z79.52 Long term (current) use of systemic steroids; Z23 Encounter for immunization; W01.0XXA Fall on same level from slipping, tripping and stumbling without subsequent striking against object, initial encounter; Y93.89 Activity, other specified; Y92.89 Other specified places as the place of occurrence of the external cause; Y99.8 Other external cause status
CPT/HCPCS: 10040; 15000; 50010; 50101; 50386; 51412; 51667; 51739; 55430; 56524; 56530; 57091; 57178; 62110; 62900; 70005

== ENCOUNTER 2018-04-10 12:24 | Inpatient (IN) | payer OTHER, BC ==
[~2018-04-10] VITALS: Ht 160 cm; Wt 67.6 kg
[~2018-04-10 12:24] MED LIST changes: +CYMBALTA30 MG PO; +ENOXAPARIN30 MG/0.1 SUBQ; +HYDROCODONE-AP1 EAC6 PO; +IPRAT-ALBUT 0.5-3 ML INH; +LEVSIN0.125 MG PO; -MULTIVITAMINS1 EAC7; +MULTIVITAMINS1 EAC7 PO; +PROAIR HFA8.5 GM INH; +WELCHOL 625 MG625 MG PO
[2018-04-10 13:01] VITALS: BP 129/41
[2018-04-10 13:06] LABS: ABSOLUTE NEUTROPHILS 17.8 thou/uL (1.4-8.2); BASOPHILS 0.5 % (0.0-2.0); EOSINOPHILS 0.1 % (0.0-3.0); HEMOGLOBIN 9.4 gm/dL (12.0-15.0); LYMPHOCYTES 3.4 % (24.0-44.0); MCH 25.7 pg (26.0-34.0); MCHC 32.2 g/dL (28.0-37.0); MCV 79.9 fL (80.0-100.0); MONOCYTES 4.5 % (1.0-8.0); PLATELET COUNT 349 thou/uL (150-400); POLYS 91.5 % (36.0-66.0); RBC 3.64 mil/uL (4.20-5.00); RDW 16.1 % (10.5-14.5); WBC 19.4 thou/uL (4.0-11.0)
[2018-04-10 13:07] LABS: URINE BILIRUBIN NEGATIVE (Negative); URINE BLOOD TRACE (Negative); URINE CLARITY CLEAR; URINE COLOR YELLOW; URINE GLUCOSE-RANDOM* NEGATIVE (Negative); URINE KETONES NEGATIVE (Negative); URINE LEUKOCYTES 2+ (Negative); URINE NITRITE POSITIVE (Negative); URINE PROTEIN (DIPSTICK) NEGATIVE (Negative); URINE SPECIFIC GRAVITY <= 1.005 (1.005-1.035); URINE UROBILINOGEN 0.2 E.U./dl (0.2-1.0)
[2018-04-10 13:13] LABS: CALCIUM 9.9 mg/dL (8.5-10.1); CREATININE 1.5 mg/dL (0.6-1.0); POTASSIUM 3.6 mmol/L (3.5-5.1)
[2018-04-10 13:14] LABS: BACTERIA >30 Many /HPF (None Seen); CASTS None Seen /LPF (None Seen); CRYSTALS None Seen /LPF (None Seen); SQUAMOUS 0-3 Few /LPF (0-3); URINE RBC 0-2 Rare /HPF (0-2); URINE WBC >25 Many /HPF (0-5); WBC CLUMPS Moderate (None Seen)
[2018-04-10 13:26] LABS: TOTAL BILIRUBIN 0.4 mg/dL (<0.1-1.0); TOTAL PROTEIN 7.2 g/dL (6.4-8.2)
[2018-04-10] MEDS ORDERED: REGLAN 10 MG TA10 MG PO (14:47)
[2018-04-10] MEDS ORDERED: SPIRIVA INH (14:47)
[2018-04-10] MEDS ORDERED: AMBIEN 5 MG TABL5 MG PO (14:47)
[2018-04-10] MEDS ORDERED: TUMS PO (14:48)
[2018-04-10] MEDS ORDERED: VITAMIN D5000 UNIT PO (14:48)
[2018-04-10] MEDS ORDERED: METAMUCIL0.4 GM PO (14:48)
[2018-04-10] MEDS ORDERED: PANCREAZE DR 41 EACH PO (14:49)
[2018-04-10] MEDS ORDERED: VASCEPA1 GM PO (14:50)
[2018-04-10] MEDS ORDERED: SEREVENT DISKU50 MCG INH (14:50)
[2018-04-10] MEDS ORDERED: OLMESARTAN-HCT1 EACH PO (14:51)
[2018-04-10] MEDS ORDERED: PROTONIX40 M1 PO (14:54)
[2018-04-10] MEDS ORDERED: XANAX 0.25 MG0.25 MG PO (14:58)
[2018-04-10 14:59] VITALS: BP 168/69
[2018-04-10] MEDS ORDERED: LOPERAMIDE 2 MG2 M1 PO (14:59)
[2018-04-10 15:34] VITALS: BP 152/64
[2018-04-10 16:00] VITALS: BP 136/68
--- NOTE | 2018-04-10 18:23 | NUR ---
ARRIVED TO FLOOR VIA AT 1555. AWAKE, ALERT AND ORIENTED X 4. VERY PLEASANT AND COOPERATIVE. ADMISSION HISTORY AND ASSESSMENT COMPLETED. IVF'S STARTED. MEDICATED X 1 FOR ABD PAIN AND HELPFUL. STEADY GAIT NOTED. ASSISTED WITH IV PUMP TO BATHROOM. VOIDED X 2. FALLS CONTRACT SIGNED. TOLERATING DIET WELL. DISCUSSED PAIN CONTROL AND PLAN OF CARE.
[2018-04-10 19:08] VITALS: BP 141/57
[2018-04-11 04:28] VITALS: BP 154/58
[2018-04-11 05:57] LABS: CALCIUM 8.8 mg/dL (8.5-10.1); CREATININE 1.1 mg/dL (0.6-1.0); POTASSIUM 3.5 mmol/L (3.5-5.1)
[2018-04-11 08:10] VITALS: BP 141/51
--- NOTE | 2018-04-11 12:54 | EKG ---
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: : 1940 Requested By: Kristian Mandujano Order Number: [id number] MD: Kristian Mandujano Measurements Intervals [place] Rate: 87 P: 71 MD: 169 QRS: 21 QRSD: 113 T: 83 QT: 406 QTc: 489 Interpretive Statements Sinus rhythm Left bundle branch block Compared to ECG 11/18/2017 00:21:02 No significant change was found Electronically Signed On 04-11-2018 12:54:35 NEEDLE CONTROL CHENILLER by Kristian Mandujano [email or web address] ��������������������������������������������� <ELECTRONICALLY SIGNED> ���������������������������������������� By: Kristian Mandujano MD, [facility] ��������������������������������������������� 04/11/18 1254 1137 113 Kristian Mandujano MD, FAC /EPI
[2018-04-11 19:23] VITALS: BP 125/45
[2018-04-11 22:15] VITALS: BP 152/56
--- NOTE | 2018-04-11 23:59 | NUR ---
PER REPORT,PT WENT INTO AFIB TODAY WITH HR IN THE 160'S, MANAGED WITH PO MEDS AND PT CONVERTED TO SR.AT APPROX 2120 [employer] NOTIFIED THIS NURSE THAT PT'S HR HAS BEEN IN THE MID 40'S AND 50'S,WENT DOWN TO MID 30'S ONE TIME,SWIM INSTRUCTOR PAGED AT 2150 GOT A CALL BACK FROM DR WADSWORTH,HE STATED TO LEAVE PT IN UNIT AND CALL ONLY IF PT IS SYMPTOMATIC,ORDER NOTED TO HOLD AM CARDIZEM.PT HAD A RUN OF VT ONE TIME,VS STABLE PT NOT SYMPTOMATIC.MIRALAX ORDER NOTED AND CARRIED OUT PER PT'S REQUEST.PT ON 4L/NC AT HS.IVF AND IV ABX ADMINISTERED ORDERED.ZOFRAN GIVEN X1 FOR NAUSEA PT RESTING ON HER BED AT THIS TIME.CALL LIGHT WITHIN.
[2018-04-12 03:48] VITALS: BP 107/41
[2018-04-12 06:17] LABS: HEMATOCRIT 26.3 % (37.0-47.0); HEMOGLOBIN 8.4 gm/dL (12.0-15.0); MCH 25.5 pg (26.0-34.0); MCHC 31.8 g/dL (28.0-37.0); MCV 80.3 fL (80.0-100.0); RBC 3.28 mil/uL (4.20-5.00); RDW 15.5 % (10.5-14.5); WBC 11.6 thou/uL (4.0-11.0)
[2018-04-12 08:26] VITALS: BP 105/43
--- NOTE | 2018-04-12 11:06 | EKG ---
[place] [address] [facility] [place] [address] ELECTROCARDIOGRAM REPORT Name: VICENTE TORRES Room #: 454-P ADM IN M.R.#: [id number] ������������������ Admission: 04/10/18 ������������������ Attend Phys: Simon Ortiz MD Discharge: ������������������ Date of : 44 Report #: [id number] ����������������������������������������������������������������� [id number] THIS REPORT FOR: //name// [facility] Test Date: 2018-04-12 Test Time: 10:15:10 Pat Name: VICENTE TORRES Department: Room: 454 Gender: F Cardiology Nurse: : 1940 Requested By: Kristian Mandujano Order Number: [id number] MD: Kristian Mandujano Measurements Intervals [place] Rate: 45 P: 82 [place]: 238 QRS: 25 QRSD: 127 T: 38 QT: 623 QTc: 540 Interpretive Statements Sinus bradycardia Prolonged [place] interval Left bundle branch block Compared to ECG 04/11/2018 11:37:27 First degree AV block now present Electronically Signed On 04-12-2018 11:06:36 [employer]LEBRITY [employer]NT[employer] MEDIA PERSONALITY by Kristian Mandujano [email or web address] ��������������������������������������������� <ELECTRONICALLY SIGNED> ���������������������������������������� By: Kristian Mandujano MD, [facility] ��������������������������������������������� 04/12/18 1106 1015 1015 Kristian Mandujano MD, FAC /EPI
--- NOTE | 2018-04-12 11:37 | HC ---
[facility] [place] [address] CONSULTATION Name: VICENTE TORRES Room #: 454-P ADM IN .R.#: [id number] Admission: 04/10/18 ������������������ Attend Phys: Simon Ortiz MD Discharge: ������������������ Date of : 44 Report #: [id number] THIS REPORT FOR: //name// CC: Simon Patel DATE OF SERVICE: 04/11/2018 REASON FOR CONSULTATION: Atrial fibrillation. HISTORY OF PRESENT ILLNESS: The patient is a 78-year-old woman who is a patient of Dr. Patel, Dr. Dread Angeles, and Dr. Pena. She has a history of chronic obstructive pulmonary disease and eoqb-wg-fcqmehrr coronary artery disease by angiography in 07/2017. Her history includes COPD, hypertension, dyslipidemia and now recurrent lower abdominal pain. While on telemetry monitoring, she developed atrial fibrillation with a rapid ventricular response. I have been asked to see her in this regard. She denies palpitations. She has had maybe more than usual breathlessness off and on during her hospital stay. She had elbow surgery last fall and in the perioperative setting developed atrial fibrillation. An outpatient event recorder demonstrated no recurrence of this atrial dysrhythmia. No history of chest pain, pressure or ischemic type symptoms. No history of near syncope or syncope. She does not have a clear awareness of the presence of atrial fibrillation. Her last echocardiogram demonstrated normal left ventricular systolic function with moderate mitral, aortic, and tricuspid insufficiency. ALLERGIES: SHE IS ALLERGIC TO MORPHINE AND CODEINE. MEDICATIONS: Include albuterol, alprazolam, atorvastatin 5 mg daily, Plavix 75 mg daily, WelChol 3 tablets twice a day, Cymbalta 30 mg daily, Estrace with supper, magnesium, meloxicam, olmesartan/hydrochlorothiazide 20/12.5 one tablet daily, Pancrease, Protonix 20 mg daily, prednisone 5 mg daily, ReQuip, Serevent Diskus inhaler, Spiriva inhaler. PAST MEDICAL HISTORY: Medical records have been reviewed and include a history of appendectomy, cholecystectomy, cystocele repair, peripheral vascular disease with peripheral stenting of the left common iliac, left subclavian and celiac trunk. SOCIAL HISTORY: She is a former smoker after 100-pack year smoking history. FAMILY HISTORY: Notable for heart failure and COPD. REVIEW OF SYSTEMS: All systems negative except as that noted above. PHYSICAL EXAMINATION: [facility] [address] [place] [address] CONSULTATION Name: VICENTE TORRES Yony Room #: 454-P [facility] IN .R.#: [id number] Admission: 04/10/18 ������������������ Attend Phys: Simon Ortiz MD Discharge: ������������������ Date of : 44 Report #: [id number] GENERAL: A pleasant woman, in no distress. VITAL SIGNS: Blood pressure is 140/50, heart rate of 85 and irregular, respirations unlabored at 18. HEENT: There are neither xanthelasma, subcutaneous xanthomata, oral mucosal or digital cyanosis or kyphoscoliosis present. CHEST: Clear to auscultation and percussion. There is a prolonged expiratory phase. CARDIOVASCULAR: Irregularly irregular rhythm with a normal S1, S2. ABDOMEN: Demonstrates no rebound or guarding. There is some lower abdominal discomfort on palpation. EXTREMITIES: Without cyanosis, clubbing or edema. Radial pulses are 2+. NEUROLOGIC: She is alert with a nonfocal exam. LABORATORY DATA: Sodium 135, potassium 3.5, creatinine 1.1. White count 19,000, hemoglobin 9.4, platelet count 349 with 91% neutrophils. Blood cultures positive for Gram-negative rods. Radiographic studies remain pending. EKG remains pending. IMPRESSION: 1. Gram-negative soy bacteremia; lower abdominal pain. 2. Atrial fibrillation with rapid ventricular response. 3. Chronic obstructive pulmonary disease with [id number] smoking history. 4. Peripheral vascular disease with peripheral stenting. 5. Ijuf-bq-abbjyyxz coronary artery disease by angiography in 07/2017. 6. Hypertension. 7. Dyslipidemia. RECOMMENDATIONS: 1. GI and ID evaluations. 2. Cardizem for heart rate control, consider antiarrhythmic therapy, either dronedarone or sotalol. 3. Anticoagulation in light of elevated CHADS-VASc score, although not until GI evaluation completed. I have discussed these issues with the patient and her daughters. Thank you for asking me to participate in her care. ��������������������������������������������� <ELECTRONICALLY SIGNED> ���������������������������������������� By: Kristian Mandujano MD, [facility] ��������������������������������������������� 04/12/18 1137 1129 0038 Kristian Mandujano MD, FAC /nt
--- NOTE | 2018-04-12 11:48 | HC ---
[facility] [place] [address] CONSULTATION Name: VICENTE TORRES Yony Room #: 454-P [facility] IN M.R.#: [id number] Admission: 04/10/18 ������������������ Attend Phys: Simon Ortiz MD Discharge: ������������������ Date of : 42 Report #: [id number] THIS REPORT FOR: //name// CC: Simon Mandujano MD [facility] GASTROINTESTINAL CONSULTATION REASON FOR CONSULTATION: The patient is a 78-year-old woman with a long-term history of abdominal pain as well as multiple medical problems, who presents with abdominal pain and now has leukocytosis and gram-negative rods in her blood. HISTORY OF PRESENT ILLNESS: This patient has a history of multiple medical problems, most significant noted for chronic obstructive pulmonary disease, for which she is steroid dependent. She has also had GI issues in the past. She reports that several years ago at [facility], she had emergency surgery on her abdomen and she said intestine was removed, I presume she is referring to small bowel. She later had stents placed in her superior mesenteric and celiac arteries after her surgery. From a GI standpoint, she has seen Dr. Angeles since 2017. She has seen him for abdominal pain. She does not have a lot of details, but she does report that he did a colonoscopy and upper endoscopy about 2 years ago. She does not recall any specific abnormalities. She has taken a number of medications, including omeprazole. She has also been on hyoscyamine for possible irritable bowel syndrome and more recently, she was placed on Pancreaze and also she was given metoclopramide. She has had pain on and off over time. The pain is usually diffuse throughout her abdomen. However, in recent weeks, the pain has become fairly constant, and in particular, over the past few days, the pain has progressively worsened to the point that it persists all the time. The pain continued to worsen to the point that she presented to the Emergency Room last evening, where she was seen, evaluated and admitted. She has not had any nausea or vomiting. Bowel habits have been regular. She has not had any problems with constipation or rectal bleeding. She does recall several weeks ago, she had a "flu bug". She had nausea, vomiting and diarrhea and that episode lasted approximately 24 hours and resolved. Again, she has not had any rectal bleeding. PAST MEDICAL HISTORY: She has chronic lung disease related to cigarette smoking. She stopped 6 years ago. She uses 4 liters of oxygen at nighttime. She is also steroid dependent because of her COPD. She has had multiple pneumonias, but never had tuberculosis. She has been treated for high blood pressure and hyperlipidemia. She does have coronary artery disease and she has stents and on this admission, was found to have atrial fibrillation. She has [facility] [address] [place] [address] CONSULTATION Name: VICENTE TORRES Room #: 454-P ADM IN M.R.#: [id number] Admission: 04/10/18 ������������������ Attend Phys: Simon Ortiz MD Discharge: ������������������ Date of : 42 Report #: [id number] peripheral vascular disease. She has been told she had a leaky heart valve in the past. She has stress urinary incontinence. She has had kidney stones. She has had stents placed in the left common iliac, left subclavian, celiac and I believe, superior mesenteric arteries. PAST SURGICAL HISTORY: She had a pubovaginal sling in 1979, previous appendectomy, previous hysterectomy and previous cholecystectomy. She has had back surgery x 2 and bilateral cataract surgery. ALLERGIES: No definite drug allergies, but SHE HALLUCINATES WITH MORPHINE. MEDICATIONS: Usual medications reviewed with the patient. She takes Cymbalta 30 mg daily, meloxicam 7.5 mg daily, Spiriva inhaler, albuterol nebulizer and Serevent inhaler. Also takes CoQ10, multivitamin, prednisone 5 mg daily chronically, alprazolam 0.25 mg as needed for anxiety, Estrace 0.5 mg daily, ropinirole 2 mg twice daily for restless legs, a probiotic, omeprazole one twice daily, irbesartan/hydrochlorothiazide 150/12.5 daily and Welchol at bedtime. She takes another medication for lipids, but she does not recall the name. FAMILY HISTORY: Mother had bowel problems, but no definite colon cancer or diverticulitis. SOCIAL HISTORY: She is . She quit smoking 6 years ago. She drinks alcohol on occasion. She has 2 daughters who are alive and well. REVIEW OF SYSTEMS: GENERAL: Some chills, but no fevers. No change in weight. CENTRAL NERVOUS SYSTEM: No focal weakness, numbness, loss of consciousness, seizures or stroke. She does have neuropathy in her feet. HEENT: Wears glasses, previous cataract surgery. No change in vision or sores in the mouth. PULMONARY: Chronic lung disease, with oxygen dependent and steroid dependent COPD. No history of tuberculosis. CARDIOVASCULAR: Heart disease with stents and now atrial fibrillation. GASTROINTESTINAL: As noted above. No hematemesis. No rectal bleeding. It is noted that previous CT did reveal diverticulosis. GENITOURINARY: Kidney stones. No change in color of urine. No pyuria or dysuria. MUSCULOSKELETAL: Arthritis in her hands. She has had back surgery. SKIN: Easy bruising. PSYCHIATRIC: Anxiety. GYNECOLOGIC: Previous hysterectomy. No breast problems. ENDOCRINE: She is not aware of diabetes or thyroid problems. She notes recent thyroid test and scan were negative. HEMATOLOGIC: No malignancy. It is noted she has become microcytic over the [facility] [address] [place] [address] CONSULTATION Name: VICENTE TORRES Room #: 454-P [facility] IN [facility].#: [id number] Admission: 04/10/18 ������������������ Attend Phys: Simon Ortiz MD Discharge: ������������������ Date of : 42 Report #: [id number] past year or 2. She reports anemia in the past and she was advised to stop meloxicam, which she did; however, she is back on meloxicam. PHYSICAL EXAMINATION: GENERAL: Well-developed, well-nourished woman who is awake, alert and oriented, in no acute distress. VITAL SIGNS: Blood pressure 141/51, heart rate of 85. HEENT: Anicteric. Pupils equal and round. Oropharynx clear. NECK: Supple, without thyromegaly or adenopathy. CHEST: Clear anteriorly. HEART: Irregular S1, S2. ABDOMEN: Normal bowel sounds. Soft. Modest tenderness around the abdomen. She cannot localize it to one spot. There is no rebound, rigidity or mass effect. There is no hepatosplenomegaly. RECTAL: Not done. EXTREMITIES: With trace bilateral pedal edema. NEUROLOGIC: Oriented to person, place and time. Moves all 4 extremities well. LABORATORY DATA: It is noted that her white count is 19.4, hemoglobin 9.4, MCV of 79.9 and platelet count of 349,000. Electrolytes are unremarkable. BUN was elevated at 30 last evening, down to 22 today. Creatinine dropped to 1.5 to 1.1 overnight. Blood sugar was elevated last time to 144. Lactic acid x 2 was normal. Bilirubin normal, AST and ALT are unremarkable and alkaline phosphatase normal. Albumin 3.0. Lipase is 73. Urinalysis, trace blood, positive nitrites. There are many wbc's in this urine. ASSESSMENT: 1. Gram-negative bacteremia. 2. Pyuria. 3. Diffuse abdominal pain, worsening. 4. Steroid-dependent chronic obstructive pulmonary disease. 5. Mesenteric vascular disease with previous stents. 6. Peripheral vascular disease. 7. Coronary artery disease. 8. Atrial fibrillation. 9. Status post cholecystectomy. 10. Diverticulosis coli. 11. Anemia, microcytic. COMMENT: She does have evidence of pyuria and white cells in urine and urosepsis is certainly a consideration. She does have known diverticular disease and diverticulitis is a consideration as well. RECOMMENDATIONS: 1. Agree with antibiotic coverage at this time. 2. Agree with CT, which is to be done today, but not yet completed. [address] [address] CONSULTATION Name: VICENTE TORRES Room #: 454-P [facility] IN M.R.#: [id number] Admission: 04/10/18 ������������������ Attend Phys: Simon Ortiz MD Discharge: ������������������ Date of : 42 Report #: [id number] 3. May need further evaluation regarding her anemia and microcytosis, although she had colonoscopy and upper endoscopy not too long ago. 4. Agree with PPI. ��������������������������������������������� <ELECTRONICALLY SIGNED> ���������������������������������������� By: Lucius Zuleta MD ��������������������������������������������� 04/12/18 1148 1231 2151 Lucius Zuleta MD /nt
[2018-04-12 12:24] LABS: % SATURATION 4 % (20-39); IRON 12 ug/dL (50-170); TIBC 303 ug/dL (250-450)
[2018-04-12 15:23] VITALS: BP 124/58
--- NOTE | 2018-04-12 16:03 | NUR ---
PT ALERT AND ORIENTED TIMES FOUR. VSS, 97%RA, DENIES PAIN/SOA. PT TOLERATES MEDS AND MEALS. PT UP TO RESTROOM WITH STANDBY ASSIST. FAMILY AT BEDSIDE THIS AFTERNOON. PT SLOWLY PROGRESSING TOWRADS POC GOALS.
--- NOTE | 2018-04-12 16:59 | HC ---
[facility] [place] [address] CONSULTATION Name: TORRESVICENTE Yony Room #: 454-P ADM IN M.R.#: [id number] Admission: 04/10/18 ������������������ Attend Phys: Simon Ortiz MD Discharge: ������������������ Date of : 42 Report #: [id number] THIS REPORT FOR: //name// CC: Simon Patel DATE OF SERVICE: 04/11/2018 ATTENDING PHYSICIAN: Dr. Ortiz. REASON FOR EVALUATION: Gram-negative septicemia, likely complicated urinary tract infection with pyelonephritis. HISTORY OF PRESENT ILLNESS: Chart reviewed, patient examined. This is a 78-year-old woman with extensive medical history, has known O2 requiring COPD, atherosclerotic coronary artery disease with cardiomyopathy and congestive heart failure, who has had several weeks of abdominal-related pain and is in bilateral lower quadrant. She has had chills and sweats as well as a roughly 20-pound weight loss. She has had a poor appetite. She notes she has increasing dyspnea above her baseline. She was evaluated in the Emergency Room for above-noted complaints, which are most prominent over the course of the last week, had some nausea with occasional diarrhea as well, the latter has resolved. Evaluation noted marked pyuria on microscopic urinalysis. Blood culture now with growth of gram-negative soy, awaiting ID and susceptibility. CT of the abdomen and pelvis did show 9 mm right renal pelvis calculus without evidence of obstruction. There is a left intrarenal calculus of 2 mm and a 1.6 cm calculus in the base of the bowel near the ureteral orifice, started empirically on ceftriaxone. She has had some cardiac tachydysrhythmias, primarily atrial fibrillation. Hemodynamically, she has been not systolically hypotensive. ALLERGIES: MORPHINE and ADENOSINE. MEDICATIONS: Include ropinirole, colesevelam, ipratropium/albuterol inhaler, duloxetine, diltiazem, prednisone, sotalol, pantoprazole, olmesartan, ceftriaxone. PAST MEDICAL HISTORY: Above-noted O2-requiring COPD, hypertension, hyperlipidemia, coronary artery disease, peripheral vascular disease, cardiomyopathy, history of congestive heart failure, aortic valve dysfunction, history of renal lithiasis, recurrent urinary tract infections, has pneumonitis as well. SOCIAL HISTORY: Former smoker. No ethanol, no illicit drug use. FAMILY HISTORY: Noncontributory. [address] [address] CONSULTATION Name: VICENTE TORRES Room #: 454-P [facility] IN M.R.#: [id number] Admission: 04/10/18 ������������������ Attend Phys: Simon Ortiz MD Discharge: ������������������ Date of : 42 Report #: [id number] REVIEW OF SYSTEMS: Otherwise, 10-point review of systems unremarkable with exception noted in above history of present illness. PHYSICAL EXAMINATION: GENERAL: She appears chronically ill, undernourished. She is pleasant, cooperative, mild to moderate distress. VITAL SIGNS: Temperature 98.7, pulse 85, respirations 20, blood pressure 141/51. SKIN: Warm, dry, no rashes. HEENT: Extraocular muscles intact. HEAD: Normocephalic. NECK: Supple. LUNGS: Basilar crackles, overall diminished. HEART: Irregular with a soft systolic murmur. ABDOMEN: Soft. There is some tenderness in the lower quadrants. There are no overt peritoneal signs. GENITOURINARY: Deferred. RECTAL: Deferred. LABORATORY DATA: Blood cultures 1 out of 2 with gram-negative rods. CT as noted above. CBC: White count initially of 19.4, H and H 9.4 and 29.0, platelets of 349. Urinalysis greater than 25 white cells, greater than 30 bacteria. Electrolytes: Sodium 136, potassium 3.6, chloride 98, bicarbonate 28, BUN and creatinine 30 and 1.5, albumin of 3, total protein 7.2. Lactic acid 2.0 initially, repeat was 1.3. ASSESSMENT AND PLAN: Gram-negative septicemia, on the kind of basis of genitourinary tract infection. She is at least moderately sick, it is possible there may be a more resistant gram-negative soy. We will adjust therapy. Continue with a broader spectrum, later generation cephalosporins with cefepime. At this point, there is no surgical intervention or percutaneous approach needed due to lack of evidence of obstruction on imaging. We will see how she does clinically. We will monitor expectantly. ��������������������������������������������� <ELECTRONICALLY SIGNED> ���������������������������������������� By: Jimi Mares MD ��������������������������������������������� 04/12/18 1659 1700 1002 Jimi Mares MD /nt
[2018-04-12 19:45] VITALS: BP 128/55
[2018-04-12 22:00] VITALS: BP 128/55
--- NOTE | 2018-04-13 00:52 | NUR ---
Assumed care at 1845. Pt resting in bed. Applied new IV on right forearm. She is still running sinus marcellus on the tele monitor. Pt denies pain. No identified needs at the moment. Call light within reach. Will continue to monitor.
[2018-04-13 04:10] VITALS: BP 138/58
[2018-04-13 08:16] VITALS: BP 143/63
--- NOTE | 2018-04-13 09:26 | EKG ---
[place] [address] [facility] [place] [address] ELECTROCARDIOGRAM REPORT Name: VICENTE TORRES Room #: 454-P ADM IN M.R.#: [id number] ������������������ Admission: 04/10/18 ������������������ Attend Phys: Simon Ortiz MD Discharge: ������������������ Date of : 42 Report #: [id number] ����������������������������������������������������������������� [id number] THIS REPORT FOR: //name// [facility] Test Date: 2018-04-13 Test Time: 07:05:34 Pat Name: VICENTE TORRES Department: Room: 454 Gender: F Staff Nuclear Medicine Technologist: LALIT : 1940 Requested By: Kristian Mandujano Order Number: [id number] MD: Kristian Mandujano Measurements Intervals [place] Rate: 73 P: 78 SC: 207 QRS: 52 QRSD: 117 T: 51 QT: 431 QTc: 475 Interpretive Statements Sinus rhythm Incomplete left bundle branch block Compared to ECG 04/12/2018 10:15:10 Sinus bradycardia no longer present First degree AV block no longer present Electronically Signed On 04-13-2018 9:26:17 SOLAR POOL HEATING INSTALLER by Kristian Mandujano [email or web address] ��������������������������������������������� <ELECTRONICALLY SIGNED> ���������������������������������������� By: Kristian Mandujano MD, [facility] ��������������������������������������������� [id number] 4 4 Kristian Mandujano MD, [facility] /EPI
--- NOTE | 2018-04-13 10:49 | NUR ---
Assess for high nutrition screening risk. Admitted with UTI, BEATRIZ. Pt states usual wts in 140s-current wt reflects this. Tolerating diet but appetite is down/nauseated. Low nutrition risk
[2018-04-13 14:27] LABS: BE(vivo) -2.4 mmol/L (-2 to +3); HCO3 23.7 mmol/L (22.0-26.0); PCO2 47.2 mmHg (35.0-45.0); PO2 63.8 mmHg (80.0-100.0); sO2 90.5 % (92.0-98.0)
[2018-04-13 14:28] LABS: pH 7.319 (7.360-7.450)
[2018-04-13 14:45] VITALS: BP 136/67
--- NOTE | 2018-04-13 16:05 | NUR ---
PT ADMITTED RELATED TO URINARY TRACT INFECTION; LEFT SIDE ABD PAIN. CM REVIEWED CHART AND SPOKE WITH CARE TEAM. CM MET WITH PT AT BEDSIDE THIS DAY. PT IS A&O X4. CM ROLE INTRODUCED. PT INDICATED SHE LIVES ALONE IN AN APARTMENT WITH NO STEPS. 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 PT INDICATED SHE HAS BEEN ON NOC O2 AT 4L DYE REEL OPERATOR AND 2-3L PRN O2 THROUGH [facility]HANA[facility] HOMEPAT[facility]. PT INDICATED SHE ALSO HAS A NEBULIZER FOR HOME USE. PT INDICATED NO HH HX. PT INDICATED SHE PLANS TO RETURN HOME ONCE MEDICALLY STABLE.
--- NOTE | 2018-04-13 19:39 | NUR ---
Assumed pt care this am, had several bouts of diarrhea through out the day. Informed Dr. Ortiz, loperamide ordered and IV fluids started. Pt felt that she was always sleeping through out the day. ABG labs ordered, critical results read to Dr. Ortiz. Pt is up at [place] and able to use the call light appropriately. Hydration encouraged as well. RT called for treatment, pt had difficulty breathing since she refused them previously. Diarrhea totalled to 7 through out the day shift. POC followed, pt is now resting comfortably.
[2018-04-13 20:21] VITALS: BP 145/53
[2018-04-14 03:27] VITALS: BP 128/50
[2018-04-14 04:38] LABS: MCHC 32.2 g/dL (28.0-37.0); MCV 80.6 fL (80.0-100.0); RBC 3.1 mil/uL (4.20-5.00); RDW 15.6 % (10.5-14.5); WBC 11.7 thou/uL (4.0-11.0)
--- NOTE | 2018-04-14 05:17 | NUR ---
Pt. rested quietly at intervals during the night when checked on during frequent rounds. She offers no c/o pain. No reports of any loose stools during the shift.
[2018-04-14 08:09] VITALS: BP 131/73
--- NOTE | 2018-04-14 08:38 | EKG ---
[address] [place] [address] ELECTROCARDIOGRAM REPORT Name: VICENTE TORRES Room #: 454-P ADM IN M.R.#: [id number] ������������������ Admission: 04/10/18 ������������������ Attend Phys: Simon Ortiz MD Discharge: ������������������ Date of : 42 Report #: [id number] ����������������������������������������������������������������� [id number] THIS REPORT FOR: //name// [facility] Test Date: 2018-04-14 Test Time: 07:25:40 Pat Name: VICENTE TORRES Department: Room: 454 P Gender: F Call Center Manager: : 1940 Requested By: Kristian Mandujano Order Number: [id number] MD: Rachid De Leon Measurements Intervals [place] Rate: 71 P: 74 MS: 192 QRS: 22 QRSD: 118 T: 56 QT: 451 QTc: 491 Interpretive Statements Sinus rhythm Incomplete left bundle branch block Low voltage, extremity leads Compared to ECG 04/13/2018 07:05:34 Low QRS voltage now present Electronically Signed On 04-14-2018 8:37:51 IMPORT COORDINATION AND PRODUCTION HEAD by Rachid De Leon [email or web address] ��������������������������������������������� <ELECTRONICALLY SIGNED> ���������������������������������������� By: Rachid De Leon MD ��������������������������������������������� 04/14/1837 4 4 Rachid De Leon MD /YVES
[2018-04-14 13:47] VITALS: BP 142/59
--- NOTE | 2018-04-14 16:45 | NUR ---
IC ROUNDED AND INDICATED THAT PT WILL LIKELY BE ABLE TO SWITCH TO PO ABX UPON ANTIPATED DISSHCARGE TOMORROW. CARE TEAM HAD INDICATED THAT PT MAY BE TRANSFERING TO SENIOR SUITES. CM TO FOLLOW INDICATED WITH DC PLANNING.
--- NOTE | 2018-04-14 18:13 | NUR ---
Pt A&Ox4, VSS with no pain. Pt is calm and cooperative, has ambulated without SOA and no current distress. Pt has eaten and drank without issue. NO c/o of UTI symptoms, urine clear. Will continue to monitor.
[2018-04-14 19:35] VITALS: BP 141/48
--- NOTE | 2018-04-15 02:09 | NUR ---
PATIENT AOX4 MAKES NEEDS KNOWN. PATIENT AMBULATES TO THE BATHRROM WITH STEADY GAITS. NO SHORTNESS OF AIR OR DISTRESS NOTED THIS SHIFT. PATIENT ENCOURAGED FLUIDS. PATIENT EDUCATED ON PERICARE. PATIENT CALM AND COOPERATIVE WITH MEDS AND CARE. PATIENT HAD NOT HAD A BOWEL MOVEMENT THIS SHIFT.PATIENT IN BED ASLEEP AT THIS TIME BREATHING REGULAR AND UNLABOURED.
[2018-04-15 04:10] VITALS: BP 143/50
[2018-04-15 07:17] VITALS: BP 155/67
--- NOTE | 2018-04-15 08:41 | EKG ---
[address] [place] [address] ELECTROCARDIOGRAM REPORT Name: VICENTE TORRES Room #: 454-P ADM IN M.R.#: [id number] ������������������ Admission: 04/10/18 ������������������ Attend Phys: Simon Ortiz MD Discharge: ������������������ Date of : 42 Report #: [id number] ����������������������������������������������������������������� [id number] THIS REPORT FOR: //name// [facility] Test Date: 2018-04-15 Test Time: 07:33:59 Pat Name: TJGIOVANI TORRES Department: Room: 454 P Gender: F Php Website Developer: : 1940 Requested By: Kristian Mandujano Order Number: [id number] MD: Rachid De Leon Measurements Intervals [place] Rate: 67 P: 73 [place]: 191 QRS: 14 QRSD: 119 T: 52 QT: 444 QTc: 469 Interpretive Statements Sinus rhythm Incomplete left bundle branch block Borderline low voltage, extremity leads LVH with secondary repolarization abnormality Compared to ECG 04/14/2018 07:25:40 Left ventricular hypertrophy now present Early repolarization now present Electronically Signed On 04-15-2018 8:41:09 ADVANCED MANUFACTURING ASSOCIATE by Rachid De Leon [email or web address] ��������������������������������������������� <ELECTRONICALLY SIGNED> ���������������������������������������� By: Rachid De Leon MD ��������������������������������������������� 04/15/18 0841 Rachid De Leon MD /EPI
[2018-04-15] MEDS ORDERED: SORINE 80 MG TA80 M1 PO (12:16)
[2018-04-15] MEDS ORDERED: BACTRIM DS TAB1 EACH PO (12:16)
[2018-04-15 13:20] VITALS: BP 165/70
--- NOTE | 2018-04-15 14:26 | NUR ---
CARE TEAM INDICATED THAT PT IS MEDICALLY STABLE TO DISCHARGE HOME THIS DAY. PT HAD HOME O2 ALREADY. PT IS TO CONTACT DR. SHORE TO ARRANGE OUTPATIENT MRI. NO OTHER CM INTERVENTION INDICATED AT THIS TIME. CASE CLOSED.
[2018-04-15 14:30] VITALS: BP 165/70
[2018-04-15 14:32] VITALS: BP 165/70
--- NOTE | 2018-04-15 15:20 | NUR ---
PT STABLE THROUGHOUT SHIFT. PT DISCHARGED TO HOME. PT GIVEN DC INSTRUCTIONS. CALLED [facility] IN TO PHARMACY. PT LEFT UNIT VIA WHEELCHAIR TO PRIVATE VEHICLE.
== END 2018-04-15 15:36 | disposition home or self-care (01) | DRG 871 ==
LOC: ER 12:24 → 4W 13:51 → EROBS 13:51 → 4W 15:30
PROVIDERS: Nurse Practitioner; Physician Assistant; Specialist; ADMIT Hospitalist
DX: A41.9 Sepsis, unspecified organism (principal); N17.0 Acute kidney failure with tubular necrosis; N12 Tubulo-interstitial nephritis, not specified as acute or chronic; I42.9 Cardiomyopathy, unspecified; E46 Unspecified protein-calorie malnutrition; E87.2 Acidosis; I25.10 Atherosclerotic heart disease of native coronary artery without angina pectoris; I73.9 Peripheral vascular disease, unspecified; J44.9 Chronic obstructive pulmonary disease, unspecified; I48.91 Unspecified atrial fibrillation; E78.5 Hyperlipidemia, unspecified; D50.9 Iron deficiency anemia, unspecified; K57.30 Diverticulosis of large intestine without perforation or abscess without bleeding; I11.0 Hypertensive heart disease with heart failure; E86.0 Dehydration; I50.9 Heart failure, unspecified; Z96.1 Presence of intraocular lens; R40.0 Somnolence; N20.0 Calculus of kidney; B96.20 Unspecified Escherichia coli [E. coli] as the cause of diseases classified elsewhere; K58.9 Irritable bowel syndrome, unspecified; G47.00 Insomnia, unspecified; Z68.26 Body mass index [BMI] 26.0-26.9, adult; Z95.5 Presence of coronary angioplasty implant and graft; Z87.442 Personal history of urinary calculi; Z95.820 Peripheral vascular angioplasty status with implants and grafts; Z87.891 Personal history of nicotine dependence; Z98.42 Cataract extraction status, left eye; Z98.41 Cataract extraction status, right eye; Z90.49 Acquired absence of other specified parts of digestive tract; Z90.710 Acquired absence of both cervix and uterus; Z79.51 Long term (current) use of inhaled steroids; Z79.899 Other long term (current) drug therapy; Z88.5 Allergy status to narcotic agent; Z88.8 Allergy status to other drugs, medicaments and biological substances; Z82.49 Family history of ischemic heart disease and other diseases of the circulatory system; Z82.5 Family history of asthma and other chronic lower respiratory diseases
CPT/HCPCS: 10045; 10047

== ENCOUNTER 2018-06-18 19:55 | Emergency (ER) | payer OTHER, BC ==
[~2018-06-18] VITALS: Ht 160 cm; Wt 64.0 kg
[~2018-06-18 19:55] MED LIST changes: +AMBIEN 5 MG TABL5 MG PO; +BACTRIM DS TAB1 EACH PO; +LOPERAMIDE 2 MG2 M1 PO; +METAMUCIL0.4 GM PO; +OLMESARTAN-HCT1 EACH PO; +PANCREAZE DR 41 EACH PO; +PROTONIX40 M1 PO; +REGLAN 10 MG TA10 MG PO; +SEREVENT DISKU50 MCG INH; +SORINE 80 MG TA80 M1 PO; +TUMS PO; +VASCEPA1 GM PO; +VITAMIN D5000 UNIT PO
[2018-06-18 21:02] LABS: CALCIUM 9.6 mg/dL (8.5-10.1); CREATININE 1.1 mg/dL (0.6-1.0); POTASSIUM 4.9 mmol/L (3.5-5.1)
[2018-06-18 21:08] LABS: ALBUMIN 3.4 g/dL (3.4-5.0); TOTAL BILIRUBIN 0.3 mg/dL (<0.1-1.0); TOTAL PROTEIN 6.6 g/dL (6.4-8.2)
[2018-06-18 21:59] LABS: URINE BILIRUBIN NEGATIVE (Negative); URINE BLOOD NEGATIVE (Negative); URINE CLARITY CLEAR; URINE COLOR YELLOW; URINE GLUCOSE-RANDOM* NEGATIVE (Negative); URINE KETONES NEGATIVE (Negative); URINE LEUKOCYTES-REFLEX NEGATIVE (Negative); URINE NITRITE-REFLEX NEGATIVE (Negative); URINE PROTEIN (DIPSTICK) NEGATIVE (Negative); URINE UROBILINOGEN 0.2 E.U./dl (0.2-1.0)
[2018-06-18 22:05] LABS: ABSOLUTE NEUTROPHILS 12.6 thou/uL (1.4-8.2); BASOPHILS 0.5 % (0.0-2.0); EOSINOPHILS 1.6 % (0.0-3.0); HEMATOCRIT 33.7 % (37.0-47.0); HEMOGLOBIN 11.1 gm/dL (12.0-15.0); LYMPHOCYTES 8.1 % (24.0-44.0); MCH 29.7 pg (26.0-34.0); MCHC 32.8 g/dL (28.0-37.0); MCV 90.4 fL (80.0-100.0); MONOCYTES 7.1 % (1.0-8.0); PLATELET COUNT 204 thou/uL (150-400); POLYS 82.7 % (36.0-66.0); RBC 3.73 mil/uL (4.20-5.00); RDW 19.7 % (10.5-14.5); WBC 15.2 thou/uL (4.0-11.0)
[2018-06-19 00:23] VITALS: BP 168/28
== END 2018-06-19 00:23 | disposition home or self-care (01) ==
LOC: ER 19:55
PROVIDERS: Emergency Medicine
DX: N13.2 Hydronephrosis with renal and ureteral calculous obstruction (principal); J44.9 Chronic obstructive pulmonary disease, unspecified; E78.5 Hyperlipidemia, unspecified; I25.10 Atherosclerotic heart disease of native coronary artery without angina pectoris; I73.9 Peripheral vascular disease, unspecified; I11.0 Hypertensive heart disease with heart failure; I50.9 Heart failure, unspecified; I48.91 Unspecified atrial fibrillation; Z90.49 Acquired absence of other specified parts of digestive tract; Z90.710 Acquired absence of both cervix and uterus; Z87.01 Personal history of pneumonia (recurrent); Z87.891 Personal history of nicotine dependence; Z79.899 Other long term (current) drug therapy; Z88.5 Allergy status to narcotic agent; Z88.8 Allergy status to other drugs, medicaments and biological substances

== ENCOUNTER 2018-08-12 14:02 | Emergency (ER) | payer OTHER, BC ==
[~2018-08-12] VITALS: Ht 160 cm; Wt 61.2 kg
[2018-08-12 14:21] LABS: URINE BILIRUBIN NEGATIVE (Negative); URINE BLOOD NEGATIVE (Negative); URINE CLARITY CLOUDY; URINE COLOR YELLOW; URINE GLUCOSE-RANDOM* NEGATIVE (Negative); URINE KETONES NEGATIVE (Negative); URINE PROTEIN (DIPSTICK) NEGATIVE (Negative); URINE UROBILINOGEN 0.2 E.U./dl (0.2-1.0)
[2018-08-12 14:24] LABS: URINE LEUKOCYTES-REFLEX 2+ (Negative); URINE NITRITE-REFLEX POSITIVE (Negative)
[2018-08-12 14:31] LABS: BACTERIA-REFLEX >30 Many /HPF (None Seen); CASTS None Seen /LPF (None Seen); SQUAMOUS 0-3 Few /LPF (0-3); URINE RBC None Seen /HPF (0-2)
[2018-08-12 14:32] LABS: CRYSTALS None Seen /LPF (None Seen)
[2018-08-12 14:55] LABS: CALCIUM 9.7 mg/dL (8.5-10.1); CREATININE 0.9 mg/dL (0.6-1.0); POTASSIUM 4.4 mmol/L (3.5-5.1)
[2018-08-12 15:00] LABS: ALBUMIN 3.4 g/dL (3.4-5.0); TOTAL BILIRUBIN 0.5 mg/dL (<0.1-1.0); TOTAL PROTEIN 7.4 g/dL (6.4-8.2)
[2018-08-12 15:07] LABS: HEMOGLOBIN 12.5 gm/dL (12.0-15.0); MCH 31.2 pg (26.0-34.0); MCHC 33.7 g/dL (28.0-37.0); MCV 92.6 fL (80.0-100.0); PLATELET COUNT 254 thou/uL (150-400); RDW 13.7 % (10.5-14.5); WBC 9.3 thou/uL (4.0-11.0)
[2018-08-12 15:31] LABS: ABSOLUTE NEUTROPHILS 6.6 thou/uL (1.4-8.2); PLATELET ESTIMATE NORMAL
[2018-08-12] MEDS ORDERED: CIPRO500 MG PO (16:00)
[2018-08-12] MEDS ORDERED: METRONIDAZOLE500 M4 PO (16:00)
[2018-08-12] MEDS ORDERED: ONDANSETRON HCL4 M2 PO (16:00)
[2018-08-12 16:15] VITALS: BP 143/84
--- NOTE | 2018-08-13 07:31 | EKG ---
[place] [address] [email or web address] [place] [address] ELECTROCARDIOGRAM REPORT Name: VICENTE TORRES [id number] ������������������ Admission: 08/12/18 ������������������ Attend Phys: Discharge: 08/12/18 ������������������ Date of : 42 Report #: [id number] ����������������������������������������������������������������� [id number] THIS REPORT FOR: //name// [facility] ED Test Date: 2018-08-12 Test Time: 14:20:51 Pat Name: VICENTE TORRES Department: Room: Gender: F Principal Bioinformatics Specialist: : 1940 Requested By: Moody Fox Order Number: [id number] MD: Kristian Mandujano Measurements Intervals [place] Rate: 94 P: 77 PA: 182 QRS: 28 QRSD: 112 T: 131 QT: 361 QTc: 452 Interpretive Statements Sinus rhythm Left bundle branch block Compared to ECG 04/15/2018 07:33:59 No significant change was found Electronically Signed On 08-13-2018 7:31:31 CDT by Kristian Mandujano [email or web address] ��������������������������������������������� <ELECTRONICALLY SIGNED> ���������������������������������������� By: Kristian Mandujano MD, [facility] ��������������������������������������������� 08/13/18 0731 1420 1420 Kristian Mandujano MD, [facility] /EPI
== END 2018-08-12 16:10 | disposition home or self-care (01) ==
LOC: ER 14:02
PROVIDERS: Emergency Medicine; Physician Assistant
DX: K52.9 Noninfective gastroenteritis and colitis, unspecified (principal); N39.0 Urinary tract infection, site not specified; J44.9 Chronic obstructive pulmonary disease, unspecified; E78.5 Hyperlipidemia, unspecified; I25.10 Atherosclerotic heart disease of native coronary artery without angina pectoris; I73.9 Peripheral vascular disease, unspecified; I11.0 Hypertensive heart disease with heart failure; I50.9 Heart failure, unspecified; I48.91 Unspecified atrial fibrillation; Z87.442 Personal history of urinary calculi; Z87.891 Personal history of nicotine dependence; Z88.5 Allergy status to narcotic agent; Z90.49 Acquired absence of other specified parts of digestive tract; Z90.710 Acquired absence of both cervix and uterus; Z87.01 Personal history of pneumonia (recurrent); Z88.8 Allergy status to other drugs, medicaments and biological substances

== ENCOUNTER → 2018-09-09 | Outpatient (CLI) | payer OTHER, BC ==
[~2018-09-09] MED LIST changes: +CIPRO500 MG PO; +METRONIDAZOLE500 M4 PO; +ONDANSETRON HCL4 M2 PO
== END ==
LOC: RAD 09:38
DX: J44.9 Chronic obstructive pulmonary disease, unspecified (principal); J92.9 Pleural plaque without asbestos; Z95.5 Presence of coronary angioplasty implant and graft; Z88.8 Allergy status to other drugs, medicaments and biological substances; Z88.6 Allergy status to analgesic agent

== ENCOUNTER → 2018-09-16 | Outpatient (CLI) | payer OTHER, BC ==
[~2018-09-16] VITALS: Ht 160 cm; Wt 61.7 kg
[~2018-09-16] MED LIST changes: +ALBUTEROL2.5 MG/31 INH; +CALCIUM + VITA1 EACH PO; +NORVASC5 MG PO; +VALSARTAN-HCTZ1 EAC1 PO; +XARELTO10 MG PO; +ZENPEP DR 5,001 EAC1 PO
--- NOTE | 2018-09-18 14:06 | PATH ---
[facility] [place] [address] [place] [address] PATHOLOGY RPT PROCEDURE Name: VICENTE CROOKS Room #: REG MERVAT Virgen.#: [id number] ������������������ Admission: 09/16/18 ������������������ Date of : 42 Discharge: Report #: [id number] Path Case #: [id number] [facility] Accession Number: [id number] . 01 Material submitted: . duodenum - DUODENAL BIOPSIES R/O SPRUE . 01 Clinical history: . Preop DX: Hx of abdominal bloating Postop DX: AVM, dysphagia R/O sprue . 02 Diagnosis: Small bowel mucosa, duodenum rule out sprue, endoscopic biopsy: - No diagnostic abnormalities present. - Negative for villous blunting or increase in intraepithelial lymphocytes. 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 02 Electronically signed: . Luz German MD, Pathologist NPI- [id number] . 01 Gross description: . The specimen is received in formalin labeled "Vicente Crooks BX of duodenum R/O sprue". The specimen source is listed on the requisition as "duodenal biopsies". Received are multiple fragments of medina soft tissue measuring 0.6 x 0.5 x 0.2 cm in aggregate dimensions and ranging from 0.1 to 0.3 cm in maximum dimension. The specimen is submitted entirely in cassette A1. The smallest fragments may not survive processing. ([facility]; 09/17/2018) XDC/XDC . 02 Pathologist provided ICD-10: R14.0, R13.10 . 02 CPT . 670379 Specimen Comment: A courtesy copy of this report has been sent to Specimen Comment: [phone], . Specimen Comment: Report sent to / DR WHEELER Performed at: [address], [place] [id number] MD Tigre Whitmore MD Phone: [phone] Performed at: 02 [place] [address] PATHOLOGY RPT PROCEDURE Name: VICENTE CROOKS Room #: REG CLShanthi Rizzo#: [id number] ������������������ Admission: 09/16/18 ������������������ Date of : 42 Discharge: Report #: [id number] Path Case #: [id number] [facility] [address] [id number] MD Luz German MD Phone: [phone]
--- NOTE | 2018-09-18 16:50 | P ---
[facility] [place] [place] [address] PROCEDURE REPORT Name: VICENTE TORRES Room #: REG MERVAT Rizzo#: [id number] Admission: 09/16/18 ������������������ Attend Phys: Dread Gonzalez Discharge: ������������������ Date of : 42 Report #: [id number] THIS REPORT FOR: //name// CC: Dread Patel DO DATE OF SERVICE: 09/16/2018 PROCEDURE PERFORMED: Upper endoscopy with biopsies, bleeding control and esophageal dilation. HISTORY OF PRESENT ILLNESS: The patient is a 78-year-old female with a history of dysphagia, also with a history of intermittent abdominal bloating and diarrhea, although this has improved since she has been on a lactose-free diet. She also has a history of gastroesophageal reflux disease, currently takes Protonix on a daily basis. She denies any heartburn symptoms in general. Plan is for upper endoscopy. DESCRIPTION OF PROCEDURE: The risks and benefits of the procedure were explained to the patient, those risks including but not limited to bleeding, perforation and the risk of sedation. She understood these risks and gave informed consent. Sedation was given using propofol per Anesthesia. Next, using a standard Olympus upper endoscope, the scope was placed in the patient's mouth and advanced under direct vision through the esophagus, stomach and into the second portion of the duodenum. The larynx was normal in appearance. The esophagus was normal throughout. The GE junction was normal. No evidence of esophagitis or stricture was noted. Overall, the gastric mucosa was normal; however, there was a single gastric AVM approximately 4 mm in size. Since the patient is usually on Xarelto, which has been held for the last several days, I proceeded with cauterization. There was some mild bleeding initially. Eventually, this stopped with further cauterization using a 7-St Helenian bipolar cautery as well as injecting 1 mL of epinephrine. Otherwise, normal gastric mucosa. The pylorus was normal and patent. The duodenal bulb, first and second portion were all normal. Biopsies of the second portion were obtained to rule out the possibility of celiac sprue as the patient does have abdominal bloating and diarrhea at times. The scope was then brought back up into the patient's stomach and a Savary guidewire was inserted through the scope, leaving the guidewire in place as the scope was then withdrawn. Next, a 48-St Helenian Savary dilation of the esophagus was performed without difficulty. The wire and dilator were removed. The scope was reintroduced into the patient's stomach. There was no evidence of mucosal tear after dilation. Scope was then withdrawn and the procedure terminated. The patient tolerated the procedure well. IMPRESSION: 1. Small gastric arteriovenous malformation, status post cautery as described [address] [address] PROCEDURE REPORT Name: VICENTE TORRES Room #: REG MERVAT Rizzo#: [id number] Admission: 09/16/18 ������������������ Attend Phys: Dread Gonzalez Discharge: ������������������ Date of : 42 Report #: [id number] above. 2. Otherwise, normal upper endoscopy. RECOMMENDATIONS: 1. Await biopsy results. 2. Observe the patient post dilation. 3. Continue daily PPI therapy. 4. Would restart Xarelto tomorrow. Thank you for allowing me to participate in her care. ��������������������������������������������� <ELECTRONICALLY SIGNED> ���������������������������������������� By: Dread Angeles MD ��������������������������������������������� 09/18/18 1650 0906 2158 Dread Angeles MD /nt
== END | disposition home or self-care (01) ==
LOC: GI 06:38
DX: K31.819 Angiodysplasia of stomach and duodenum without bleeding (principal); R13.19 Other dysphagia; K21.9 Gastro-esophageal reflux disease without esophagitis; I10 Essential (primary) hypertension; I25.10 Atherosclerotic heart disease of native coronary artery without angina pectoris; E78.5 Hyperlipidemia, unspecified; J43.9 Emphysema, unspecified; I48.91 Unspecified atrial fibrillation; F32.9 Major depressive disorder, single episode, unspecified; I73.9 Peripheral vascular disease, unspecified; D64.9 Anemia, unspecified; Z98.890 Other specified postprocedural states; Z87.442 Personal history of urinary calculi; Z79.01 Long term (current) use of anticoagulants; Z85.828 Personal history of other malignant neoplasm of skin; Z79.899 Other long term (current) drug therapy; Z87.891 Personal history of nicotine dependence; Z90.49 Acquired absence of other specified parts of digestive tract; Z90.710 Acquired absence of both cervix and uterus; Z98.41 Cataract extraction status, right eye; Z98.42 Cataract extraction status, left eye; Z88.8 Allergy status to other drugs, medicaments and biological substances; Z87.440 Personal history of urinary (tract) infections
CPT/HCPCS: 62110; 62900

== ENCOUNTER → 2019-03-16 | Outpatient (CLI) | payer OTHER, BC | END | disposition home or self-care (01) | LOC: SJCVCIMAG 08:25 | DX: K55.1 Chronic vascular disorders of intestine (principal); I77.1 Stricture of artery; D68.59 Other primary thrombophilia; E78.1 Pure hyperglyceridemia; I73.9 Peripheral vascular disease, unspecified; I48.0 Paroxysmal atrial fibrillation; G45.8 Other transient cerebral ischemic attacks and related syndromes; K21.9 Gastro-esophageal reflux disease without esophagitis; G47.30 Sleep apnea, unspecified; F17.200 Nicotine dependence, unspecified, uncomplicated; Z79.899 Other long term (current) drug therapy ==

== ENCOUNTER → 2019-03-24 | Outpatient (CLI) | payer OTHER, BC | LOC: SJCVCIMAG 07:29 | DX: I11.9 Hypertensive heart disease without heart failure (principal); R06.02 Shortness of breath; I25.10 Atherosclerotic heart disease of native coronary artery without angina pectoris; I73.9 Peripheral vascular disease, unspecified; J44.9 Chronic obstructive pulmonary disease, unspecified; F17.210 Nicotine dependence, cigarettes, uncomplicated; Z72.89 Other problems related to lifestyle ==

== ENCOUNTER 2019-07-02 10:26 | Emergency (ER) | payer OTHER, BC ==
[~2019-07-02] VITALS: Ht 160 cm; Wt 49.9 kg
--- NOTE | ~2019-07-02 | EMS ---
[facility] [address] [place] [address] EMS Patient Care Report Name: VICENTE TORRES Room #: REG RHIANNA Rizzo#: [id number] Admission: 07/02/19 Attend Phys: Discharge: Date of : 42 Report #: [id number] THIS REPORT FOR: //name// Report Transmitted: 07/02/2019 16:56 EMS Care Summary [facility] Incident [id number] @ 07/02/2019 09:32 Incident Location [address] [place] [address] Patient VICENTE TORRES Female, 79 Years 1940 Patient Address [address] [place] [address] Patient History Chronic Obstructive Pulmonary Disease (COPD), Patient Allergies No known allergies, Patient Medications Oxygen, Chief Complaint SOA Disposition Transported No Lights/[place] Dispatch Reason Breathing Problem Transported To [facility] Narrative L1, M3 was dispatched to a 79 YO female with a chief complaint of difficulty breathing and a pain in her posterior right shoulder blade. Upon walking into PT residence, I saw a 79 YO woman sitting in her recliner. I asked the PT her name and she replied Vicente. I introduced myself and asked what was wrong. She [facility] [address] [place] [address] EMS Patient Care Report Name: VICENTE TORRES Room #: REG Matthias#: [id number] Admission: 07/02/19 Attend Phys: Discharge: Date of : 42 Report #: [id number] said she was short of breathe. With her history of COPD I asked what was different with this short of breathe versus any other time she has been short of breathe. PT explained that she felt like she could not get a full deep breathe. Pt was treated appropriately with 100 % supplemental oxygen, Evaluation and a twelve lead which was not indicative of any ST elevation/Depression. Pt was loaded onto cot and secured via 3 straps. PT was loaded into ambulance and transported via ambulance to [facility] ER. PT was kept on supplemental oxygen throughout transport and continuously monitored/ evaluated. A follow up twelve lead and 15 lead was given with no findings of ST elevation/depression. When asked how she felt, PT stated half way through transport that she felt much better and that she could get a full deep breathe. PT also stated that the pain in her left shoulder blade was still there. Upon arrival to hospital, PT was transferred by cot to hospital bed and pt was assisted into hospital bed with no instance. Bedside report was given to DIRECTOR OF SCIENTIFIC RESEARCHDaniella miguel in service. Initial Vitals @10:11P: 74,R: 15,Pain: 0/10,GCS: 15,SpO2: 97,KS Suspected: false @10:16P: 70,R: 17,BP: 130/56,Pain: 0/10,GCS: 15,CO: 6,EtCO2: 56,SpO2: 97,Revised Trauma: 12,KS Suspected: false @10:03P: 73,R: 12,Pain: 0/10,GCS: 15,EtCO2: 52,SpO2: 96,KS Suspected: false @09:58P: 71,R: 15,Pain: 0/10,GCS: 15,CO: 4,EtCO2: 50,SpO2: 97,KS Suspected: false @09:54P: 133,R: 15,BP: 131/59,Pain: 0/10,GCS: 15,EtCO2: 47,SpO2: 97,Revised Trauma: 12,KS Suspected: false @10:11P: 68,R: 13,BP: 123/62,Pain: 0/10,GCS: 15,CO: 5,EtCO2: 46,SpO2: 96,Revised Trauma: 12,KS Suspected: false @10:00P: 69,R: 13,Pain: 0/10,GCS: 15,EtCO2: 29,SpO2: 97, @10:06P: 69,R: 17,BP: 103/50,Pain: 0/10,GCS: 15,EtCO2: 43,SpO2: 98,Revised Trauma: 12,KS Suspected: false @09:50P: 73,R: 12,BP: 108/52,Pain: 0/10,GCS: 15,CO: 5,EtCO2: 41,SpO2: 93,Revised Trauma: 12,KS Suspected: false @09:46P: 74,R: 13,Pain: 0/10,GCS: 15,EtCO2: 44,SpO2: 95,KS Suspected: false @PTAP: 75,R: 16,BP: 125/47,Pain: 0/10,GCS: 15,SpO2: 81,Revised Trauma: 12, Assessments @09:42MENTAL:Person Oriented,Time Oriented,Place Oriented,Event Oriented,SKIN:No Abnormalities,HEENT:Eyes: Left Pupil: 3-mm,Eyes: Right Pupil: 3-mm,Head/Face: No Abnormalities,Neck/Airway: No Abnormalities,LUNG SOUNDS:General: No Abnormalities,Left Upper: No Abnormalities,Right Upper: No Abnormalities,Left Lower: No Abnormalities,Right Lower: No Abnormalities,ABDOMEN:General: No Abnormalities,Left Upper: No Abnormalities,Right Upper: No Abnormalities,Left Lower: No Abnormalities,Right Lower: No Abnormalities,PELVIS//GI:No Abnormalities,EXTREMITIES:Capillary Refill: Left Upper: 3 Sec,Left Arm: No Abnormalities,Right Arm: No Abnormalities,Left Leg: No Abnormalities,Right Leg: No [facility] [address] [place] [address] EMS Patient Care Report Name: TORRESTJGIOVANI Bhakta Room #: REG [facility]#: [id number] Admission: 07/02/19 Attend Phys: Discharge: Date of : 42 Report #: [id number] Abnormalities,PULSE:Radial: 2+ Normal,NEURO:No Abnormalities,@09:57MENTAL:Place Oriented,Person Oriented,Time Oriented,Event Oriented,SKIN:No Abnormalities,HEENT:Eyes: Left Pupil: 3-mm,Eyes: Right Pupil: 3-mm,Head/Face: No Abnormalities,LUNG SOUNDS:General: No Abnormalities,Left Upper: No Abnormalities,Right Upper: No Abnormalities,Left Lower: No Abnormalities,Right Lower: No Abnormalities,ABDOMEN:General: No Abnormalities,Left Upper: No Abnormalities,Right Upper: No Abnormalities,Left Lower: No Abnormalities,Right Lower: No Abnormalities,PELVIS//GI:No Abnormalities,EXTREMITIES:Capillary Refill: Left Upper: 3 Sec,Left Arm: No Abnormalities,Right Arm: No Abnormalities,Left Leg: No Abnormalities,Right Leg: No Abnormalities,PULSE:Radial: 2+ Normal,NEURO:No Abnormalities, Impression Chronic Obstructive Pulmonary Disease (COPD) Procedures @10:0312-Lead ECG@10:0012-Lead ECG@09:4612-Lead ECG@09:42ALS AssessmentResponse: UnchangedSucceeded@09:57ALS AssessmentResponse: UnchangedSucceeded@09:44Oxygen FlowRate: 4 Device: CO2 Nasal Cannula Response: ImprovedSucceeded 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,BP: 125/47 M,PULSE: 75,RR: 16 R,SPO2: 81 Ox,ETCO2: ,BG: ,PAIN: 0,GCS: 15, 09:30,Call Received 09:30,Psap Call 09:32,Dispatched 09:33,En Route 09:40,On Scene 09:42,At Patient 09:42,ALS Assessment,Response: UnchangedSucceeded, 09:44,Oxygen FlowRate: 4 Device: CO2 Nasal Cannula Response: ImprovedSucceeded, 09:46,12-Lead ECG, 09:46,BP: / M,PULSE: 74,RR: 13 R,SPO2: 95 Ox,ETCO2: 44 ,BG: ,PAIN: 0,GCS: 15, 09:50,BP: 108/52 M,PULSE: 73,RR: 12 R,SPO2: 93 Ox,ETCO2: 41 ,BG: ,PAIN: 0,GCS: 15, 09:54,BP: 131/59 M,PULSE: 133,RR: 15 R,SPO2: 97 Ox,ETCO2: 47 ,BG: ,PAIN: 0,GCS: 15, 09:56,Depart Scene 09:57,ALS Assessment,Response: UnchangedSucceeded, 09:58,BP: / M,PULSE: 71,RR: 15 R,SPO2: 97 Ox,ETCO2: 50 ,BG: ,PAIN: 0,GCS: 15, 10:00,12-Lead ECG, 10:00,BP: / M,PULSE: 69,RR: 13 R,SPO2: 97 Ox,ETCO2: 29 ,BG: ,PAIN: 0,GCS: 15, 10:03,12-Lead ECG, 10:03,BP: / M,PULSE: 73,RR: 12 R,SPO2: 96 Ox,ETCO2: 52 ,BG: ,PAIN: 0,GCS: 15, 10:06,BP: 103/50 M,PULSE: 69,RR: 17 R,SPO2: 98 Ox,ETCO2: 43 ,BG: ,PAIN: 0,GCS: 15, [facility] [address] [place] [address] EMS Patient Care Report Name: VICENTE TORRES Room #: REG [facility]#: [id number] Admission: 07/02/19 Attend Phys: Discharge: Date of : 42 Report #: [id number] 10:11,BP: 123/62 M,PULSE: 68,RR: 13 R,SPO2: 96 Ox,ETCO2: 46 ,BG: ,PAIN: 0,GCS: 15, 10:11,BP: / M,PULSE: 74,RR: 15 R,SPO2: 97 Ox,ETCO2: ,BG: ,PAIN: 0,GCS: 15, 10:16,BP: 130/56 M,PULSE: 70,RR: 17 R,SPO2: 97 Ox,ETCO2: 56 ,BG: ,PAIN: 0,GCS: 15, 10:19,At Destination 10:55,Call Closed Disclaimer v1.1 Copyright 2020 [employer] This EMS Care Summary contains data elements from the applicable legal record (which may be displayed differently). It is designed to provide pertinent information for the following purposes: continuity of care, clinical quality, and state data reporting. The complete legal record is available to ED staff and administrators of the receiving hospital in [employer] Patient Tracker. All data is provided "as is."
--- NOTE | ~2019-07-02 | EKG ---
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 By: 1031 1031 Epiphany Epiphany, /EPI
[2019-07-02 11:12] LABS: HEMATOCRIT 32.3 % (37.0-47.0); MCHC 34.1 g/dL (28.0-37.0); MCV 96.9 fL (80.0-100.0); RBC 3.34 mil/uL (4.20-5.00); RDW 13.3 % (10.5-14.5); WBC 10.4 thou/uL (4.0-11.0)
[2019-07-02 11:18] LABS: BUN 27 mg/dL (7-18); CHLORIDE 95 mmol/L (98-107); GLUCOSE 167 mg/dL (74-106); POTASSIUM 4.1 mmol/L (3.5-5.1); SODIUM 139 mmol/L (136-145)
[2019-07-02 11:22] LABS: CO2 > 45 mmol/L (21-32)
[2019-07-02 11:26] LABS: TROPONIN-I <0.06 ng/mL (<0.06)
[2019-07-02 13:05] VITALS: BP 127/42
== END 2019-07-02 13:30 | disposition home or self-care (01) ==
LOC: ER 10:26
PROVIDERS: Emergency Medicine
DX: R06.02 Shortness of breath (principal); J44.9 Chronic obstructive pulmonary disease, unspecified; I25.10 Atherosclerotic heart disease of native coronary artery without angina pectoris; I48.91 Unspecified atrial fibrillation; K21.9 Gastro-esophageal reflux disease without esophagitis; I50.9 Heart failure, unspecified; Z79.899 Other long term (current) drug therapy; Z88.6 Allergy status to analgesic agent; Z88.8 Allergy status to other drugs, medicaments and biological substances; Z87.891 Personal history of nicotine dependence; Z90.49 Acquired absence of other specified parts of digestive tract; Z90.710 Acquired absence of both cervix and uterus; Z98.890 Other specified postprocedural states

== ENCOUNTER 2019-07-10 08:54 | Inpatient (IN) | payer OTHER, BC ==
[~2019-07-10] VITALS: Ht 160 cm; Wt 53.1 kg
--- NOTE | ~2019-07-10 | HC ---
[facility] [place] [address] [place] [address] CONSULTATION Name: VICENTE TORRES Room #: 208-P [facility] [place] .R.#: [id number] Admission: 07/10/19 Attend Phys: Leilani Ramos MD Discharge: Date of : 42 Report #: [id number] THIS REPORT FOR: cc: [facility] - Family physician unknown FAM - Family physician unknown Gonzalez Cheng MD ~ CC: [facility] unknown Leilani Ramos DATE OF SERVICE: 07/14/2019 HISTORY OF PRESENT ILLNESS: The patient is a 79-year-old white female admitted with acute on chronic hypoxic hypercapnic respiratory failure. She is a prior smoker, on chronic O2 at home. She has had problems with recurrent syncope. Neurology and Cardiology has been involved. MRI of the brain showed meningioma, but no evidence of any infarct. Cardiology ordered a nuclear stress test, which was negative. She does have some bradycardia and their recommendation for a 2-week event monitor at discharge. She is noted to have medical complexity with generalized debilitation. We are seeing her in rehabilitation medicine consultation. PAST MEDICAL HISTORY: Includes COPD, on nasal prong O2, 3-4 liters; hypertension, dyslipidemia, lumbar diskectomy, coronary artery disease, bowel resection, lithotripsy, stent placement in left common iliac, left subclavian, AFib, anxiety, depression, restless leg syndrome, and controlled GERD. HABITS: Current every day smoker prior to admission. MEDICATIONS: Please see the full medication listing. ALLERGIES: ADENOSINE, FENTANYL, MORPHINE AND ADHESIVE. SOCIAL HISTORY: Lives in an apartment alone, did not utilize gait aids, was on oxygen, 2 daughters, do the laundry. REVIEW OF SYSTEMS: Did not offer any current complaints of chest pain, shortness of breath, or abdominal discomfort. PHYSICAL EXAMINATION: GENERAL: She is a small statured, thin 79-year-old white female in no obvious distress. VITAL SIGNS: Last recorded temperature 98.4, pulse 58, respirations 16, and blood pressure 116/32. The patient is alert, oriented. HEENT: Appeared to be benign. NEUROLOGIC: Cranial nerves are grossly intact. Nasal prong O2 is in place. EXTREMITIES: Functional range of motion of the upper extremity strength is [facility] [address] [place] [address] CONSULTATION Name: VICENTE TORRES Yony Room #: 208-P [facility] [place] ..#: [id number] Admission: 07/10/19 Attend Phys: Leilani Ramos MD Discharge: Date of : 42 Report #: [id number] grade 4- to 3+/5. DTRs are trace to 1. Lower extremities, no focal calf swelling, functional range of motion with strength is grade 4- to 3+/5. DTRs are trace to 1. She is needing assistance with basic functional mobility skills. Lower body dressing is min assist. Occupational Therapy has seen her and Physical Therapy is to evaluate. ASSESSMENT: A 79-year-old white female with the following problem list: 1. Acute on chronic hypoxic hypercapnic respiratory failure. 2. Medical complexity with generalized debilitation. 3. Recurrent syncope. She has had a thorough evaluation and there is consideration for bradycardia as the cause. 4. Bradycardia with 2-week event monitor being recommended at discharge per Cardiology. 5. Paroxysmal atrial fibrillation. 6. Anemia. Gastroenterology is involved. Hemoglobin has been trending back up. Xarelto was held. 7. Thrombocytopenia is resolved. 8. COVID-19 was ruled out. 9. Urinary tract infection. 10. Tobacco dependence. PLAN: Physical therapy to assess. We are considering the patient for an acute [address] [place] [address] inpatient rehabilitation stay. We will continue to follow along with you regarding her rehab therapy needs. By: 1246 1553 Gonzalez Cheng MD /nt
[~2019-07-10 08:54] MED LIST changes: -ROPINIROLE HCL2 M1 PO; +ROPINIROLE HCL2 MG PO
[2019-07-10 08:55] VITALS: BP 127/92
[2019-07-10 09:44] LABS: ABSOLUTE NEUTROPHILS 8.4 thou/uL (1.4-8.2); BASOPHILS 0.3 % (0.0-2.0); EOSINOPHILS 2.2 % (0.0-3.0); HEMATOCRIT 34.8 % (37.0-47.0); HEMOGLOBIN 11.7 gm/dL (12.0-15.0); MCH 32.7 pg (26.0-34.0); MCHC 33.6 g/dL (28.0-37.0); MCV 97.3 fL (80.0-100.0); MONOCYTES 7.2 % (1.0-8.0); PLATELET COUNT 189 thou/uL (150-400); POLYS 80.3 % (36.0-66.0); RBC 3.58 mil/uL (4.20-5.00); RDW 13.1 % (10.5-14.5); WBC 10.5 thou/uL (4.0-11.0)
[2019-07-10 09:51] LABS: BUN 24 mg/dL (7-18); CALCIUM 10.4 mg/dL (8.5-10.1); CHLORIDE 94 mmol/L (98-107); GLUCOSE 111 mg/dL (74-106); SODIUM 141 mmol/L (136-145)
[2019-07-10 09:58] LABS: ALBUMIN 3.3 g/dL (3.4-5.0); SGOT 20 U/L (15-37); SGPT 17 U/L (30-65); TOTAL BILIRUBIN 0.5 mg/dL (<0.1-1.0); TOTAL PROTEIN 6.9 g/dL (6.4-8.2); TROPONIN-I <0.06 ng/mL (<0.06)
[2019-07-10 09:59] LABS: DIRECT BILIRUBIN < 0.1 mg/dL (<0.1-0.2)
[2019-07-10 10:01] LABS: CO2 > 45 mmol/L (21-32)
--- NOTE | 2019-07-10 11:03 | EKG ---
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
[2019-07-10 11:36] LABS: URINE BILIRUBIN NEGATIVE (Negative); URINE BLOOD NEGATIVE (Negative); URINE CLARITY SL CLOUDY; URINE COLOR YELLOW; URINE GLUCOSE-RANDOM* NEGATIVE (Negative); URINE KETONES NEGATIVE (Negative); URINE LEUKOCYTES-REFLEX 3+ (Negative); URINE NITRITE-REFLEX POSITIVE (Negative); URINE PROTEIN (DIPSTICK) NEGATIVE (Negative); URINE UROBILINOGEN 0.2 E.U./dl (0.2-1.0)
[2019-07-10 11:43] LABS: BACTERIA-REFLEX >30 Many /HPF (None Seen); SQUAMOUS >10 Many /LPF (0-3); URINE WBC-REFLEX >25 Many /HPF (0-5)
[2019-07-10 11:44] LABS: CASTS None Seen /LPF (None Seen); CRYSTALS None Seen /LPF (None Seen); URINE RBC None Seen /HPF (0-2)
[2019-07-10 13:17] LABS: BE(vivo) 15.1 mmol/L (-2 to +3); HCO3 42.6 mmol/L (22.0-26.0); sO2 87.5 % (92.0-98.0)
[2019-07-10 13:18] LABS: PCO2 70.3 mmHg (35.0-45.0); PO2 55.4 mmHg (80.0-100.0)
--- NOTE | 2019-07-10 14:36 | NUR ---
PT HAS BEEN PLACED ON R/O COVID PRECAUTIONS
[2019-07-10 15:45] VITALS: BP 132/44
[2019-07-10 16:59] VITALS: BP 143/46
[2019-07-10 17:54] VITALS: BP 142/59
--- NOTE | 2019-07-10 18:47 | NUR ---
PATIENT ARRIVED TO UNIT APPROX 1745. BROUGHT BY STRETCHER BY ED STAFF. PLACED IN ENHANCED ISOLATION PRECAUTIONS PENDING COVID SWAB RESULTS. PATIENT ON 4L NC, STATES THIS HER BASELINE O2. NO S/S DISTRESS NOTED. PATIENT DENIES CHEST PAIN. REPORTS SOME PAIN IN RIGHT SHOULDER. NO WOUNDS NOTED ON ASSESSMENT. PATIENT GAVE VERBAL CONSENT, RECEIVED WELCOME PACKET AND EDUCATION. FALL PRECAUTIONS IN PLACE.
[2019-07-10] MEDS ORDERED: ZOLOFT25 MG PO (20:02)
[2019-07-10] MEDS ORDERED: ZENPEP DR 20,01 EACH PO (20:05)
[2019-07-10] MEDS ORDERED: POTASSIUM CITR15 MEQ PO (20:14)
[2019-07-10] MEDS ORDERED: MAGNESIUM OXID500 M1 PO (20:17)
[2019-07-10] MEDS ORDERED: XARELTO2.5 MG PO (20:22)
[2019-07-10] MEDS ORDERED: SENIOR PROBIOT1 EACH PO (20:23)
[2019-07-10] MEDS ORDERED: REGLAN 5 MG TAB5 MG PO (20:24)
[2019-07-10] MEDS ORDERED: DITROPAN XL10 M1 PO (20:25)
[2019-07-10] MEDS ORDERED: SERTRALINE HCL50 MG PO (20:27)
[2019-07-10] MEDS ORDERED: LEVO-T25 MCG PO (20:33)
--- NOTE | 2019-07-10 23:34 | NUR ---
COVID-19 SWAB RESULT POSTED TO PTS CHART NEGATIVE TODAY OF 1924 HRS.
[2019-07-11] VITALS (8 sets, daily range): BP systolic 121–178; BP diastolic 43–65
[2019-07-11 01:51] LABS: ABSOLUTE NEUTROPHILS 4.4 thou/uL (1.4-8.2); BASOPHILS 0.3 % (0.0-2.0); EOSINOPHILS 3.1 % (0.0-3.0); HEMATOCRIT 24.1 % (37.0-47.0); LYMPHOCYTES 14.3 % (24.0-44.0); MCH 32.4 pg (26.0-34.0); MCHC 33.9 g/dL (28.0-37.0); MCV 95.7 fL (80.0-100.0); MONOCYTES 9.5 % (1.0-8.0); PLATELET COUNT 131 thou/uL (150-400); POLYS 72.8 % (36.0-66.0); RBC 2.52 mil/uL (4.20-5.00); RDW 12.9 % (10.5-14.5)
[2019-07-11 02:02] LABS: HEMOGLOBIN 8.2 gm/dL (12.0-15.0)
[2019-07-11 02:14] LABS: ALBUMIN 2.6 g/dL (3.4-5.0); BUN 18 mg/dL (7-18); CHLORIDE 92 mmol/L (98-107); CO2 44 mmol/L (21-32); CREATININE 0.8 mg/dL (0.6-1.0); GLUCOSE 87 mg/dL (74-106); PHOSPHORUS 2.9 mg/dL (2.5-4.9); POTASSIUM 3.2 mmol/L (3.5-5.1); SGOT 17 U/L (15-37); SGPT 14 U/L (30-65); TOTAL BILIRUBIN 0.2 mg/dL (<0.1-1.0); TOTAL PROTEIN 5.3 g/dL (6.4-8.2)
[2019-07-11 02:22] LABS: ANION GAP < 0 mmol/L (7-16); CALCIUM 8.3 mg/dL (8.5-10.1); SODIUM 131 mmol/L (136-145)
--- NOTE | 2019-07-11 04:48 | NUR ---
PT MAKING SLOW PROGRESS TOWARDS GOALS. AWOKE THIS AM WITH C/O HEADACHE AND NAUSEA. ZOFRAN AND TYLENOL GIVEN. NO REPORTS OF SOA UNTIL THIS MORNING PT STATED SHE WAS FEELING SOA. SLIGHT WHEEZE NOTED OVER BOTH UPPER LOBES. RT TX ORDERED PER SCUDDING INSPECTOR. HAS DENIED ANY CP OVERNIGHT. UP TO BSC THIS AM, VOIDED 200ML. PVR VIA BLADDER SCAN WAS "ZERO" EVEN WITH SCANNING MULTIPLE AREAS OVER THE THE LOCATION OF THE BLADDER.
--- NOTE | 2019-07-11 12:28 | HC ---
[facility] [place] [address] CONSULTATION Name: VICENTE TORRES Yony Room #: 359-P ADM IN .R.#: [id number] Admission: 07/10/19 Attend Phys: Leilani Ramos MD Discharge: Date of : 42 Report #: [id number] THIS REPORT FOR: cc: [facility] - Family physician unknown FAM - Family physician unknown Morales Salcedo MD ~ CC: [facility] unknown Leilani Ramos DATE OF SERVICE: 07/11/2019 CARDIOLOGY CONSULTATION INDICATION: Syncope. HISTORY OF PRESENT ILLNESS: This is a 79-year-old female with a history of COPD, on 4 liters of oxygen via nasal cannula, peripheral vascular disease with stents to celiac artery and subclavian arteries, nonobstructive CAD, paroxysmal atrial fibrillation and tobacco use. Over the past few months, she has had several episodes of syncope, difficult for her to give details. Yesterday's episode occurred while she was outside smoking a cigarette. After she finished her cigarette, she stood up and walked over to her penn. Apparently, she was bending over and when she started to stand upright, she passed out. She denies any chest pain. The episodes may be similar. She denies any fever, chills or vomiting. She has chronic dyspnea with mild levels of physical exertion, attributed to COPD. At times, she will develop chest discomfort along with the shortness of breath. There is no history of orthopnea. PAST MEDICAL HISTORY: Peripheral vascular disease, nonobstructive coronary artery disease, paroxysmal atrial fibrillation, severe COPD on 4 liters of oxygen via nasal cannula, chronic tobacco use and EF in the 50% range. ALLERGIES: FENTANYL AND ADENOSINE. MEDICATIONS: Include Protonix 40 mg twice a day, Xanax, Lipitor 5 mg, prednisone 5 mg daily, Vascepa 1 tablet twice a day, sotalol 40 mg twice a day, valsartan/HCTZ 160/12.5, amlodipine and Xarelto. SOCIAL HISTORY: Chronic tobacco use, about 1 pack per day. FAMILY HISTORY: Negative for premature CAD. REVIEW OF SYSTEMS: A full 10-point review of systems performed. Only the pertinent positives and negatives are described in the HPI. PHYSICAL EXAMINATION: [facility] [address] [place] [address] CONSULTATION Name: VICENTE TORRES Yony Room #: 359-P [facility] IN [facility]#: [id number] Admission: 07/10/19 Attend Phys: Leilani Ramos MD Discharge: Date of : 42 Report #: [id number] VITAL SIGNS: Blood pressure is 150/70 and heart rate is 80 beats per minute. GENERAL APPEARANCE: This is a thin, elderly appearing female in no acute distress. HEENT: Normocephalic, atraumatic. Oral mucosa is moist. NECK: Supple. LUNGS: Diminished breath sounds diffusely. CARDIAC: Regular rate and rhythm, 2/6 systolic murmur. ABDOMEN: Soft, nontender. EXTREMITIES: No cyanosis, no edema. IMAGING: ECG reveals sinus rhythm, incomplete left bundle-branch block. LABORATORY VALUES: Troponin levels are negative. Hemoglobin initially was 11.2, down to 8.2. Sodium is 131 and creatinine is 0.8. ASSESSMENT AND PLAN: 1. Syncope, appears to be orthostatic related, possibly vasovagal mediated as well. Needs an echocardiogram and check orthostatic blood pressure readings. Hold diuretic therapy at this time. May have been dehydrated as her hemoglobin has decreased with hydration. 2. Coronary artery disease, complains of chest discomfort with ambulation. Although, she develops dyspnea first before chest discomfort, may be related to hypoxia. 3. Paroxysmal atrial fibrillation, remains in sinus rhythm. Continue with anticoagulation therapy. 4. Chronic obstructive pulmonary disease, oxygen dependent, check cultures, rule out pneumonia, as per Pulmonary. 5. Peripheral vascular disease, appears to be stable at this time. 6. Tobacco use, complete smoking cessation is recommended. 7. Anemia, may be of chronic disease with the sudden change in hemoglobin, rule out gastrointestinal bleed. <ELECTRONICALLY SIGNED> By: Morales Salcedo MD 07/11/19 1228 0900 0921 Morales Salcedo MD /nt
[2019-07-11 12:50] LABS: HEMATOCRIT 29.2 % (37.0-47.0); HEMOGLOBIN 10.1 gm/dL (12.0-15.0)
[2019-07-11 12:59] LABS: BUN 17 mg/dL (7-18); CALCIUM 9.7 mg/dL (8.5-10.1); CHLORIDE 94 mmol/L (98-107); GLUCOSE 101 mg/dL (74-106); MAGNESIUM 1.1 mg/dL (1.8-2.4); SODIUM 135 mmol/L (136-145)
[2019-07-11 13:01] LABS: POTASSIUM 4.2 mmol/L (3.5-5.1)
[2019-07-11 13:02] LABS: CO2 > 45 mmol/L (21-32)
[2019-07-11 17:36] LABS: % SATURATION 17 % (20-39); IRON 47 ug/dL (50-170); TIBC 273 ug/dL (250-450)
--- NOTE | 2019-07-11 19:35 | NUR ---
ASSUMED PATIENT CARE AT 0700. A/O X4. GENERLIZED WEAKNESS. VSS. SLOWLY TOWARDS POC GOALS.
--- NOTE | 2019-07-11 20:23 | HC ---
[facility] [place] [address] CONSULTATION Name: VICENTE TORRES Yony Room #: 359-P ADM IN M.R.#: [id number] Admission: 07/10/19 Attend Phys: Leilani Ramos MD Discharge: Date of : 42 Report #: [id number] THIS REPORT FOR: cc: [facility] - Family physician unknown TD - Family physician unknown Lucius Zuleta MD ~ CC: [facility] unknown Leilani Ramos REASON FOR CONSULTATION: The patient is a 79-year-old woman with multiple medical problems with a recent drop in hemoglobin while taking Xarelto for atrial fibrillation. HISTORY OF PRESENT ILLNESS: This patient is known to my partner Dr. Angeles and I have also seen her in the past. She has a history of multiple medical problems including chronic abdominal pain. In the past, she had emergency surgery on her abdomen with intestines removed. She cannot say exactly what was removed. She also has mesenteric stents. She has been seen by Dr. Angeles for several years. She has had colonoscopy and upper endoscopy in the past. Dr. Angeles did an upper endoscopy on her on 09/16/2018 for GI bleeding. She was found to have AVM that was nonbleeding and cauterized. The AVM was in the stomach. The exam was otherwise unremarkable. She is now in the hospital because she had a fall yesterday. When she was admitted, her hemoglobin was 11.7. On 07/02/2019, it was 11.0. However today it dropped to 8.2. The patient denies any nausea, vomiting, hematemesis. She has not had any change in stool habits. She denies bloody stools or melanotic stools. She reports she is having regular bowel habits. She does not have any new abdominal pains at this point in time. She is on Xarelto. She denies use of nonsteroidals. PAST MEDICAL HISTORY: She has been a long-term cigarette smoker and continues to smoke in spite of her COPD and oxygen dependence. She has had multiple pneumonias in the past. She has had high blood pressure and hyperlipidemia. She has coronary artery disease, but says she does not have any stents in her heart. She also has atrial fibrillation. She has mesenteric vascular disease with stents. She also has peripheral vascular disease. She has had urinary incontinence and kidney stones. She has had stents placed in the left common iliac, left subclavian, celiac and superior mesenteric artery. PAST MEDICAL HISTORY: Bowel resection at [facility] in the past, pubovaginal sling in 1979. PAST SURGICAL HISTORY: Previous appendectomy, previous hysterectomy, previous cholecystectomy, back surgeries x 2, bilateral cataract surgery. [address] [address] CONSULTATION Name: VICENTE TORRES Room #: 359-P ADM IN M.R.#: [id number] Admission: 07/10/19 Attend Phys: Leilani Ramos MD Discharge: Date of : 42 Report #: [id number] ALLERGIES: HALLUCINATIONS WITH MORPHINE. ALSO HAS PROBLEMS WITH ADHESIVE, FENTANYL AND ADENOSINE. MEDICATIONS: Usual home medicines she cannot state her medicines in the system, is AccuNeb, ProAir, Lipitor, calcium, losartan/hydrochlorothiazide, Vascepa, probiotic, levothyroxine, Zenpep 20,000 units b.i.d. and 5000 t.i.d., magnesium oxide, metoclopramide, multivitamins, Ditropan, pantoprazole, potassium, Xarelto, ropinirole, Serevent, sertraline, sotalol and Spiriva handheld inhaler. FAMILY HISTORY: Mother had bowel problems. No family history of colon cancer or diverticular disease. SOCIAL HISTORY: She is a . She reports she is still smoking. She is oxygen dependent. Drinks on occasion. REVIEW OF SYSTEMS: GENERAL: No change in weight, fever or chills. CENTRAL NERVOUS SYSTEM: She had a fall recently, but did not have any loss of consciousness. She has neuropathy in her feet. HEENT: Wears glasses, previous cataract surgery. PULMONARY: Chronic lung disease, oxygen dependent. No history of tuberculosis. CARDIOVASCULAR: She has been told she has heart disease, but she denies stents in her heart. She does have peripheral vascular disease and mesenteric vascular disease. GASTROINTESTINAL: Previous abdominal surgeries and chronic abdominal pain. GENITOURINARY: Kidney stones and bladder dysfunction. MUSCULOSKELETAL: Arthritis in the hands and back. SKIN: She complains of lots of bruising. PSYCHIATRIC: Anxiety. GYNECOLOGIC: Previous hysterectomy. No breast problems. ENDOCRINE: She denies diabetes, but she does have thyroid disease and is on thyroid replacement. HEMATOLOGIC: She had skin cancers removed off her face many years ago. PHYSICAL EXAMINATION: GENERAL: The patient is a thin, chronically ill-appearing woman. She is in no acute distress, but has pursed lip breathing. She has a nasal cannula at 5 liters. VITAL SIGNS: Blood pressure 153/50, pulse of 80. HEENT: Anicteric. Pupils equal, round. Oropharynx clear. NECK: Supple. CHEST: Clear. HEART: Irregular S1, S2. ABDOMEN: Normal bowel sounds, soft, nontender, without hepatosplenomegaly or masses. I did not appreciate bruits. [facility] [address] [place] [address] CONSULTATION Name: VICENTE TORRES Room #: 359-P [facility] IN ..#: [id number] Admission: 07/10/19 Attend Phys: Leilani Ramos MD Discharge: Date of : 42 Report #: [id number] RECTAL: Not done. EXTREMITIES: Without cyanosis, clubbing, or edema. NEUROLOGICAL: Oriented to person, place, and time. Moves all 4 extremities well. LABORATORY DATA: In addition to CBC as noted above, blood gas pH 7.4, pCO2 of 70, pO2 of 55. Sodium 131, potassium 3.2, chloride 92, CO2 of 44, BUN of 18, creatinine 0.8. LFTs unremarkable. Albumin 2.6 and COVID-19 screen negative. ASSESSMENT: 1. Anemia. 2. Atrial fibrillation, on Xarelto. 3. Chronic obstructive pulmonary disease, oxygen dependent. 4. Mesenteric vascular disease. 5. Coronary artery disease. 6. Peripheral vascular disease. 7. Previous cholecystectomy. 8. Diverticulosis coli. COMMENT: She denies any signs or symptoms of recent bleeding. She has multiple major comorbidities including severe COPD, which would make any sort of endoscopic examination a much higher risk. RECOMMENDATIONS: 1. Monitor hemoglobin. 2. Check stool for Hemoccult. 3. Consider upper endoscopy especially in view of her history of gastric arteriovenous malformations, although she is at high risk. <ELECTRONICALLY SIGNED> By: Lucius Zuleta MD 07/11/192022 1217 1327 Lucius Zuleta MD /nt
[2019-07-12] VITALS (14 sets, daily range): BP systolic 113–171; BP diastolic 34–70
--- NOTE | 2019-07-12 05:52 | NUR ---
COVID SWAB FOR SECOND TIME CAME BACK NEGATIVE. PT HAS NO CHEST PAIN COMPLAINTS, VSS STABLE DURING SHIFT. TELE SHOWS PT RUNS SR W/BBB. FOLLOWING POC WITH IVF GTT AND BREATHING TX'S. FALL AND ISOLATION PRECAUTIONS IN PLACE.
[2019-07-12 08:08] LABS: HEMATOCRIT 27.4 % (37.0-47.0); HEMOGLOBIN 9.5 gm/dL (12.0-15.0); MCHC 34.7 g/dL (28.0-37.0); MCV 95.2 fL (80.0-100.0); RBC 2.88 mil/uL (4.20-5.00); RDW 13.2 % (10.5-14.5); WBC 6.6 thou/uL (4.0-11.0)
[2019-07-12 08:22] LABS: ANION GAP < 0 mmol/L (7-16); BUN 12 mg/dL (7-18); CHLORIDE 97 mmol/L (98-107); CO2 41 mmol/L (21-32); CREATININE 0.7 mg/dL (0.6-1.0); GLUCOSE 81 mg/dL (74-106); MAGNESIUM 1.6 mg/dL (1.8-2.4); POTASSIUM 3.7 mmol/L (3.5-5.1); SODIUM 136 mmol/L (136-145)
--- NOTE | 2019-07-12 18:00 | NUR ---
ASSUMED PATIENT CARE AT 0700. A/O X4. PATIENT HAD ONE EPISODA SVT. CARDIZED GTT WAS ON, SR ON MONITOR NOW. VSS. TOLERTAED ON 4L/NC. STANDBY ASSISTED.SLOWLY TOWARDS POC GOALS. WILL TRANSFER TO CCU SOON.
[2019-07-13] VITALS (8 sets, daily range): BP systolic 123–157; BP diastolic 35–81
--- NOTE | 2019-07-13 03:51 | NUR ---
PT IS ALERT AND ORIENTED X4. LUNGS ARE DIMINISHED. PT ON 4 LITERS O2 NASAL CANULA WTIH A CONTINUOUS PULSE OXIMETRY WITH SATURATION IS 94-96 PERCENT. PT USES BEDSIDE COMMODE WITH ASSISTANCE PER NURSING. NORMAL SINUS RHYTHM ON THE MONIOR. COMPLAINED OF NAUSEA AND DRY HEAVES . ZOFRAN GIVEN AND SEEMED TO HELP PT. CALL LIGHT WITHIN REACH. AND BED ALARM ON FOR FALL RISK. WILL CONTINUE TO ASSESS AND MONITOR PER NURSING
[2019-07-13 05:08] LABS: ANION GAP < 0 mmol/L (7-16); BUN 10 mg/dL (7-18); CALCIUM 9.1 mg/dL (8.5-10.1); CHLORIDE 97 mmol/L (98-107); CO2 40 mmol/L (21-32); CREATININE 0.8 mg/dL (0.6-1.0); GLUCOSE 91 mg/dL (74-106); MAGNESIUM 2.4 mg/dL (1.8-2.4); PHOSPHORUS 3.1 mg/dL (2.5-4.9); POTASSIUM 3.4 mmol/L (3.5-5.1); SODIUM 135 mmol/L (136-145)
[2019-07-13 06:04] LABS: ABSOLUTE NEUTROPHILS 4.9 thou/uL (1.4-8.2); BASOPHILS 0.3 % (0.0-2.0); EOSINOPHILS 3.2 % (0.0-3.0); HEMATOCRIT 26.4 % (37.0-47.0); HEMOGLOBIN 9.2 gm/dL (12.0-15.0); LYMPHOCYTES 14.3 % (24.0-44.0); MCH 33.4 pg (26.0-34.0); MCHC 34.9 g/dL (28.0-37.0); MCV 95.7 fL (80.0-100.0); MONOCYTES 10.3 % (1.0-8.0); PLATELET COUNT 155 thou/uL (150-400); POLYS 71.9 % (36.0-66.0); RBC 2.76 mil/uL (4.20-5.00); RDW 13.2 % (10.5-14.5); WBC 6.8 thou/uL (4.0-11.0)
--- NOTE | 2019-07-13 15:00 | NUR ---
Met with patient who reports she lives alone in [facility] [place] by [facility]. SHe uses not assistive device at home. SHe has home oxygen via [facility] [place] [facility] [place] [facility] at 4 liters continuous. She was driving but not recently due to syncopal episodes. Patient reports friends and family assist. SP with dtr Ann-Marie who she reports her mom does not tell her everything and she has told the RN its not her firts fall. Reviewed role of casemgt, therapy evals in process.
--- NOTE | 2019-07-13 15:17 | 2DMMODE ---
[facility] [place] [address] 2 D/M-MODE ECHOCARDIOGRAM Name: MELISSATJGIOVANI Bhakta Room #: 208-P ADM IN M.R.#: [id number] Admission: 07/10/19 Attend Phys: Leilani Ramos MD Discharge: Date of : 42 Report #: [id number] THIS REPORT FOR: cc: FAM - Family physician unknown FAM - Family physician unknown Kristian Mandujano MD [facility] ~ APPROVED REPORT Study performed: 07/13/2019 14:16:22 EXAM: Comprehensive 2D, Doppler, and color-flow Echocardiogram Patient Location: Bedside Room #: 208 Status: routine BSA: 1.54 HR: 57 bpm BP: 123/80 mmHg Rhythm: LBBB Other Information Study Quality: Adequate Indications Syncope. Hx: Nonobstructive CAD, PAF, COPD. 2D Dimensions RVDd: 30.44 mm IVSd: 14.56 (7-11mm) LVDd: 37.10 mm PWd: 13.20 (7-11mm) Ascending Ao: 32.02 (22-36mm) LVDs: 29.61 (25-40mm) Aortic Root: 29.28 mm Volumes Left Atrial Volume (Systole) Single Plane 4CH: 18.79 mL Single Plane 2CH: 52.19 mL LA ESV Index: 23.00 mL/m2 Aortic Valve AoV Peak Haider.: 1.30 m/s AO Peak Gr.: 6.77 mmHg LVOT Max P.84 mmHg LVOT Max V: 0.98 m/s [facility] [address] [place] [address] 2 D/M-MODE ECHOCARDIOGRAM Name: VICENTE TORRES Room #: 208-P [facility] IN ..#: [id number] Admission: 07/10/19 Attend Phys: Leilani Ramos, Discharge: Date of : 42 Report #: [id number] Mitral Valve E/A Ratio: 0.7 MV Decel. Time: 267.59 ms MV E Max Haider.: 0.79 m/s MV A Haider.: 1.21 m/s MV PHT: 77.60 ms IVRT: 83.04 ms Pulmonary Valve PV Peak Haider.: 1.26 m/s PV Peak Gr.: 6.33 mmHg Pulmonary Vein P Vein S: 0.64 m/s P Vein A: 0.23 m/s P Vein D: 0.45 m/s P Vein A Dur.: 133.8 msec P Vein S/D Ratio: 1.42 Tricuspid Valve RAP Estimate: 5.00 mmHg Left Ventricle The left ventricle is normal size. Paradoxical septal motion consistent with conduction abnormality. Mild to moderate left ventricular hypertrophy. Left ventricular systolic function is normal. LVEF is 50-55%. Mild diastolic dysfunction is present (impaired relaxation pattern). Right Ventricle The right ventricle is normal size. The right ventricular systolic function is normal. Atria The left atrium size is normal. The right atrium size is normal. Aortic Valve Aortic valve is not well visualized. Mild aortic regurgitation. There is no aortic valvular stenosis. Mitral Valve The mitral valve is normal in structure. Trace mitral regurgitation. No evidence of mitral valve stenosis. Tricuspid Valve The tricuspid valve is normal in structure. There is no tricuspid valve regurgitation noted. Unable to assess PA pressure. [facility] [address] [place] [address] 2 D/M-MODE ECHOCARDIOGRAM Name: VICENTE TORRES Room #: 208-P [facility] IN ..#: [id number] Admission: 07/10/19 Attend Phys: Leilani Ramos, Discharge: Date of : 42 Report #: [id number] Pulmonic Valve Pulmonic valve is not well visualized. Trace pulmonic regurgitation. Great Vessels The aortic root is normal in size. The ascending aorta is normal in size. IVC is normal in size and collapses >50% with inspiration. Pericardium There is no pericardial effusion. <Conclusion> Left ventricular systolic function is normal. Paradoxical septal motion consistent with conduction abnormality. LVEF is 50-55%. Mild diastolic dysfunction Aortic valve is not well visualized. Mild aortic regurgitation, no stenosis. The mitral valve is normal in structure. Trace mitral regurgitation. Unable to assess pulmonary artery pressure. There is no pericardial effusion. <ELECTRONICALLY SIGNED> By: Kristian Mandujano MD, [facility] 07/13/19 1515 14 14 Kristian Mandujano MD, [facility] /INF
--- NOTE | 2019-07-13 18:48 | NUR ---
ASSUMED CARE 0700. ALERT X4, FROM HOME ALONE, DENIES PAIN. PT ON 4L NASAL CANNULA, AX1 FOR TRANSFERS. POOR NUTRITIONAL INTAKE. DIETARY ROUNDED WITH SUPPLEMENT ADDED TO EACH MEAL. PT DRANK SUPPLMENT BUT REFUSED TO EAT NOON AND DINNER MEALS. MRI AND MRA COMPLETED. NO SYCOPE EPISODES TODAY. PT PROGRESSING TOWARDS GOALS. FALL PRECATIONS IN PLACE WITH PERSONAL ITEMS AND CALL LIGHT IN REACH.
[2019-07-14 04:26] VITALS: BP 140/44
--- NOTE | 2019-07-14 05:58 | NUR ---
PT TRANSFERRING TO BEDSIDE COMMODE WITH STANDBY ASSIST AND IS TOLERATING FAIR. DENIES NEED FOR PAIN MEDICATION. RESTING COMFORTABLY. NO NEEDS VOICED. CALL LIGHT WITHIN REACH. FREQUENT OBSERVATION.
[2019-07-14 09:15] LABS: HEMATOCRIT 30.1 % (37.0-47.0); HEMOGLOBIN 10.4 gm/dL (12.0-15.0); MCHC 34.6 g/dL (28.0-37.0); MCV 95.6 fL (80.0-100.0); RBC 3.15 mil/uL (4.20-5.00); RDW 13.2 % (10.5-14.5); WBC 7.1 thou/uL (4.0-11.0)
[2019-07-14 09:29] LABS: CALCIUM 9.5 mg/dL (8.5-10.1); CREATININE 0.9 mg/dL (0.6-1.0); POTASSIUM 3.5 mmol/L (3.5-5.1)
[2019-07-14 09:50] VITALS: BP 116/32
[2019-07-14] MEDS ORDERED: CARDIZEM CD120 MG PO (13:00)
[2019-07-14] MEDS ORDERED: BACTRIM DS TAB1 EAC1 PO (13:13)
[2019-07-14 16:40] VITALS: BP 143/40
--- NOTE | 2019-07-14 17:20 | NUR ---
patient evaled by [facility] and accepted. Patient and dtr agreeable to transfer to [facility]. Reviewed acute rehab process and clothes drop off. Dtr in agreeement.
== END 2019-07-14 18:38 | DRG 189 ==
LOC: ER 08:54 → EROBS 12:41 → 3W 12:41 → 2N 12:41 → 3W 17:33 → 2N 07-12 18:46
PROVIDERS: Emergency Medicine; Nurse Practitioner Adult Health; Specialist; ADMIT Internal Medicine
DX: J96.21 Acute and chronic respiratory failure with hypoxia (principal); E43 Unspecified severe protein-calorie malnutrition; N39.0 Urinary tract infection, site not specified; K55.1 Chronic vascular disorders of intestine; J96.22 Acute and chronic respiratory failure with hypercapnia; I48.0 Paroxysmal atrial fibrillation; D64.9 Anemia, unspecified; J44.9 Chronic obstructive pulmonary disease, unspecified; F17.210 Nicotine dependence, cigarettes, uncomplicated; N81.10 Cystocele, unspecified; E78.5 Hyperlipidemia, unspecified; I25.10 Atherosclerotic heart disease of native coronary artery without angina pectoris; I73.9 Peripheral vascular disease, unspecified; I11.0 Hypertensive heart disease with heart failure; I50.9 Heart failure, unspecified; G25.81 Restless legs syndrome; F41.9 Anxiety disorder, unspecified; F32.9 Major depressive disorder, single episode, unspecified; K21.9 Gastro-esophageal reflux disease without esophagitis; R55 Syncope and collapse; K57.90 Diverticulosis of intestine, part unspecified, without perforation or abscess without bleeding; R00.1 Bradycardia, unspecified; D69.6 Thrombocytopenia, unspecified; Z66 Do not resuscitate; K55.20 Angiodysplasia of colon without hemorrhage; E83.42 Hypomagnesemia; M19.90 Unspecified osteoarthritis, unspecified site; Z90.710 Acquired absence of both cervix and uterus; Z90.89 Acquired absence of other organs; Z98.1 Arthrodesis status; Z90.49 Acquired absence of other specified parts of digestive tract; Z95.820 Peripheral vascular angioplasty status with implants and grafts; Z99.81 Dependence on supplemental oxygen; Z79.899 Other long term (current) drug therapy; Z88.5 Allergy status to narcotic agent; Z91.048 Other nonmedicinal substance allergy status; Z03.818 Encounter for observation for suspected exposure to other biological agents ruled out; Z68.20 Body mass index [BMI] 20.0-20.9, adult
CPT/HCPCS: 10081; 10879

== ENCOUNTER 2019-07-14 16:29 | Inpatient (IN) | payer OTHER, BC ==
[~2019-07-14] VITALS: Ht 160 cm; Wt 51.4 kg
--- NOTE | ~2019-07-14 | H ---
[facility] [place] [address] HISTORY AND PHYSICAL Name: VICENTE TORRES Room #: 509-P [facility] IN M.R.#: [id number] Admission: 07/14/19 Attend Phys: Gonzalez Cheng MD Discharge: 07/21/19 Date of : 42 Report #: [id number] THIS REPORT FOR: cc: TD - Family physician unknown TD - Family physician unknown Gonzalez Cheng MD ~ CC: Gonzalez APPIAH unknown DATE OF SERVICE: 07/21/2019 HISTORY OF PRESENT ILLNESS: The patient is a 79-year-old white female originally admitted to [facility] inpatient rehabilitation puga with acute on chronic hypoxic respiratory failure medical complex with generalized debilitation, recurrent syncope, bradycardia, paroxysmal atrial fibrillation. Please see the full admission note dictation. HOSPITAL COURSE: The patient was on the inpatient rehabilitation puga. She had problems with acute blood loss anemia with history of gastric arteriovenous malformations. Significant drop in hemoglobin, was given packed red blood cells, held Plavix, Xarelto. She is needing more assistance from a pulmonary perspective with acute respiratory failure regarding BiPAP. She has been discharged to the acute Med/Surg puga for further medical management. DISCHARGE DIAGNOSES: 1. Qpxtl-bs-wyeunwt hypercapnic respiratory failure. 2. Medical complexity with generalized debilitation. 3. Acute blood loss anemia with history of gastric arteriovenous malformations. 4. Electrolyte abnormalities. 5. Syncopal episode previously. 6. Coronary artery disease. 7. Bradycardia. 8. Paroxysmal atrial fibrillation. 9. Restless legs syndrome. PLAN: The patient has been discharged back to acute care. Further medical management, activity as per the accepting service. ADDENDUM: The patient did miss some therapies on 07/17/2019 due to nausea. By: 0914 1123 Gonzalez Cheng MD /nt
--- NOTE | ~2019-07-14 | H ---
[facility] [place] [address] HISTORY AND PHYSICAL Name: VICENTE TORRES Room #: 509-P ADM IN M.R.#: [id number] Admission: 07/14/19 Attend Phys: Gonzalez Cheng MD Discharge: Date of : 42 Report #: [id number] THIS REPORT FOR: cc: TD - Family physician unknown TD - Family physician unknown Gonzalez Cheng MD ~ CC: Gonzalez APPIAH unknown DATE OF SERVICE: 07/14/2019 HISTORY AND PHYSICAL/POST-ADMISSION PHYSICAL EVALUATION HISTORY OF PRESENT ILLNESS: The patient has been admitted for acute in-hospital inpatient rehabilitation. She originally had a syncopal episode with falls. She was evaluated by Cardiology and Neurology, noted to have bradycardia on telemetry with recommendations for an outpatient two-week event monitor at discharge. She was seen by GI for anemia, Xarelto was held. Hemoglobin was stabilized and thrombocytopenia, resolved. She has a history of COPD, 4 L at home. She was noted to have acute on chronic hypoxic respiratory failure and has been requiring 6 liters nasal cannula at this time. She was changed from IV Zosyn to p.o. Bactrim. She was noted to have a significant functional decline from her premorbid status and has been admitted for acute in-hospital inpatient rehabilitation. PAST MEDICAL HISTORY, SOCIAL HISTORY, ALLERGIES, HABITS: Please see the documented history and physical. MEDICATIONS: Please see the MAR. REVIEW OF SYSTEMS: No current complaints of chest pain, shortness of breath or abdominal discomfort. PHYSICAL EXAMINATION: GENERAL: Pleasant 79-year-old female in no obvious distress. She is on 6 liters nasal cannula. LUNGS: Breath sounds decreased. CARDIAC: Regular rate and rhythm. ABDOMEN: Bowel sounds positive, nontender. GENITOURINARY AND RECTAL: Deferred. EXTREMITIES: No focal calf swelling. Upper and lower extremities revealed functional range of motion, strength is probably at least a grade 4-/5. She has been min assist for basic sit to stand. Starting to walk short distances without a gait aid. ASSESSMENT: 1. Acute on chronic hypoxic hypercapnic respiratory failure. [address] [address] HISTORY AND PHYSICAL Name: VICENTE TORRES Room #: 509-P [facility] IN M.R.#: [id number] Admission: 07/14/19 Attend Phys: Gonzalez Cheng MD Discharge: Date of : 42 Report #: [id number] 2. Medical complexity with generalized debilitation. 3. Recurrent syncope. 4. Bradycardia. 5. Paroxysmal atrial fibrillation. 6. Anemia. 7. Urinary tract infection. 8. Antibiotic associated diarrhea. 9. Tobacco abuse. 10. Depression. PLAN: The patient has been admitted for acute in-hospital inpatient rehabilitation. Agree with the findings as noted in the documented history and physical. From a postadmission physician evaluation perspective, there are no relevant changes since the preadmission screening. Please see the above review of prior and current medical and functional conditions and comorbidities. Please see the above, previous and current functional status. As far as risk of complication, she has multiple medical comorbidities as noted above. Initial plan of care involves the interdisciplinary acute inpatient rehabilitation program. Measurable functional goals would be for the patient to become modified independent with transfers, mobility, ADLs, so that she can hopefully return back to her prior living situation. We also have speech therapy involved assessing her swallow and also assessing her cognition. Measurable functional goals would be for her to become modified independent with transfers, mobility and ADLs as well as overall improved cognition, so she can return back to the home setting. Prognosis is reasonably good with estimated length of stay probably at least 7-14 days pending progress. Potential barriers would include her multiple medical comorbidities and decreased functional status. The patient meets diagnostic criteria for an acute in-hospital inpatient rehabilitation stay. She meets the medical necessity criteria and we will have the linux consultant physicians continue to follow. She does have the tolerance for therapies and has appropriate discharge goals back to the home setting. By: 1508 1516 Gonzalez Cheng MD /nt
--- NOTE | ~2019-07-14 | PLAN ---
[facility] [place] [address] REHAB UNIT PLAN OF CARE Name: VICENTE TORRES Yony Room #: 509-P ADM IN M.R.#: [id number] Admission: 07/14/19 Attend Phys: Gonzalez Cheng MD Discharge: Date of : 44 Report #: [id number] THIS REPORT FOR: //name// CC: Gonzalez Cheng [facility] unknown DATE OF SERVICE: 07/16/2019 PROGRESS NOTE/OVERALL PLAN OF CARE SUBJECTIVE: The patient was seen back today in followup. No new complaints were noted. She has been min assist with sit to stand, min assist, ambulating 45 feet with a front-wheeled walker. She has djso-cx-[id number] cognitive deficits and moderate memory deficits. ASSESSMENT: 1. Acute on chronic hypoxic hypercapnic respiratory failure. 2. Medical complex with generalized debilitation. 3. Recurrent syncope. 4. Bradycardia. 5. Paroxysmal atrial fibrillation. 6. Anemia. 7. Urinary tract infection. 8. Antibiotics associated diarrhea. 9. Tobacco abuse. 10. Depression. PLAN: The overall plan of care is based on the preadmission screen, post-admission physician evaluation and information gathered from therapy assessments. 1. Estimated length of stay is probably at least 7-14 days. 2. Medical prognosis is reasonably good. 3. Anticipated interventions includes the interdisciplinary acute inpatient rehabilitation program. 4. Anticipated functional outcomes would be for the patient to improve as far as functional mobility, ADLs, cognition, so she can hopefully return back to her prior living situation. 5. Discharge destination would be back to the home setting where she has been living in her own apartment. She does have help with family. 6. Expected therapy by discipline includes PT, OT and speech 1 hour per day each five days a week throughout the duration of the acute inpatient rehabilitation stay. By: [id number] Gonzalez Cheng MD /PMT
[~2019-07-14 16:29] MED LIST changes: +BACTRIM DS TAB1 EAC1 PO; +CARDIZEM CD120 MG PO; +DITROPAN XL10 M1 PO; +LEVO-T25 MCG PO; +MAGNESIUM OXID500 M1 PO; +POTASSIUM CITR15 MEQ PO; +REGLAN 5 MG TAB5 MG PO; +SENIOR PROBIOT1 EACH PO; +SERTRALINE HCL50 MG PO; +XARELTO2.5 MG PO; +ZENPEP DR 20,01 EACH PO; +ZOLOFT25 MG PO
[2019-07-14 18:30] VITALS: BP 140/49
[2019-07-14 21:32] VITALS: BP 148/49
--- NOTE | 2019-07-15 01:40 | NUR ---
PATIENT ARRIVED ON UNIT AROUND 1900, A&O X 4, ABLE TO MAKE NEEDS KNOWN. NO ACUTE CHANGES NOTED. VSS O2 ON 4L VIA NC. LUNG SOUNDS DIMINISHED BILATERAL, NO SKIN TEARS OR WOUNDS NOTED ON ASSESSMENT. PERIPHERAL PULES NORMAL +2. ADMISSION ASSESSMENT COMPLETED. PT C/O NAUSEA RELIEVED WITH PRN ZOFRAN. ASSIST X 1 USING GAITBELT AND WALKER. MEDS GIVEN PER ORDERS, TOLERATED WELL. CONTINENT OF B&B, USES BR, BM 07/13/19. PT RESTING, CALL LIGHT WITHIN REACH, WILL CONTINUE TO MONITOR PER POC.
[2019-07-15 06:28] LABS: HEMOGLOBIN 9.6 gm/dL (12.0-15.0); MCH 32.6 pg (26.0-34.0); MCHC 34.2 g/dL (28.0-37.0); MCV 95.1 fL (80.0-100.0); RBC 2.94 mil/uL (4.20-5.00); RDW 13.3 % (10.5-14.5)
[2019-07-15 06:40] LABS: ANION GAP < 0 mmol/L (7-16); BUN 7 mg/dL (7-18); CALCIUM 9.5 mg/dL (8.5-10.1); CHLORIDE 96 mmol/L (98-107); CO2 43 mmol/L (21-32); CREATININE 0.6 mg/dL (0.6-1.0); GLUCOSE 92 mg/dL (74-106); POTASSIUM 3.7 mmol/L (3.5-5.1); SODIUM 137 mmol/L (136-145)
[2019-07-15 08:00] VITALS: BP 144/78
[2019-07-15 08:32] VITALS: BP 120/51
[2019-07-15 10:49] LABS: FOLIC ACID 66.5 ng/mL (8.6-58.9)
--- NOTE | 2019-07-15 12:32 | NUR ---
tried calling pt via phone call, no answer will cont following as needed for dc needs.
--- NOTE | 2019-07-15 14:17 | NUR ---
ASSUMED CARES AT 0700. PT AWAKE, ALERT AND ORIENTED*4 BUT FORGETFUL. DENIES PAIN. VITALS STABLE. C/O NAUSEA, ZOFRAN ADMINISTERED. LS COARSE, SOB WITH EXERSION. O2 AT 4L WITH SATS 90-92%. ABDOMEN SOFT AND ROUND. BS ACTIVE*4. SOFT AND ROUND, BS ACTIVE*4. PT HAD MULTIPLE LOOSE STOOLS THIS AM, IMMODIUM GIVEN ORDERED. IV RIGHT AC DC'D R/T CLOTTED OFF. PT UP WITH SBA, GB AND WALKER AND TOLERATED WELL. Q1H VISUAL CHECKS. CALL LIGHT WITHIN REACH. FALL PRECAUTIONS IN PLACE
[2019-07-15 19:02] VITALS: BP 134/51
[2019-07-15 20:00] VITALS: BP 145/42
[2019-07-15 20:01] VITALS: BP 146/63
--- NOTE | 2019-07-15 21:00 | NUR ---
NO BM THIS SHIFT, BUT IS STARTING TO THINK LOOSE STOOLS MIGHT BE CAUSED BY BACTRIM. PATIENT WENT AHEAD AND IS TAKING MED, WILL MONITOR FOR MORE LOOSE STOOLS
[2019-07-16 08:00] VITALS: BP 124/52
--- NOTE | 2019-07-16 13:45 | NUR ---
ASSUMED CARES AT 0700. PT AWAKE, ALERT AND ORIENTED *4. DENIES PAIN. DENIES NAUSEA. VITALS STABLE. ON 4L OXYGEN VIA NC AND SATS REMAIN STABLE, LS CLEAR. CONTINUES TO HAVE BRUSING ON BUE. UP WITH 1 SBA, GB. SOB WITH EXERSION. Q1H VISUAL CHECKS. CALL LIGHT WITHIN REACH. FALL PRECAUTIONS IN PLACE
[2019-07-16 20:21] VITALS: BP 153/45
--- NOTE | 2019-07-17 02:41 | NUR ---
ASSUMED CARE AROUND 1900, PT A&O X 4, NO ACUTE CHANGES NOTED. VSS, O2 ON 4L VIA NC. PT DENIES ANY PAIN OR DISCCOMFORT, BUT GIVEN PRN ZOFRAN FOR NAUSEA. MEDS GIVEN PER ORDERS, TOLERATED WELL. DAILY WEIGHT. CONTINENT OF B&B, USES BR, BM 07/16/19. PT ASLEEP, CALL LIGHT WITHIN REACH, WILL CONTINUE TO MONITOR PER POC.
[2019-07-17 08:15] VITALS: BP 154/53
[2019-07-17 10:29] LABS: HEMATOCRIT 26.4 % (37.0-47.0); HEMOGLOBIN 8.9 gm/dL (12.0-15.0); MCH 32.5 pg (26.0-34.0); MCHC 33.8 g/dL (28.0-37.0); MCV 96.2 fL (80.0-100.0); RBC 2.75 mil/uL (4.20-5.00); RDW 13.3 % (10.5-14.5); WBC 8.8 thou/uL (4.0-11.0)
--- NOTE | 2019-07-17 10:36 | NUR ---
ASSUMED CARE AT 0700. PATIENT IS ALERT AND ORIENTED X4. 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 LUNGS ARE DEMINISHED. PATIENT CONTINUES ON 02 AT 4L PER N/C. PATIENT GETS SOB WITH EXERTION. PATIENT CONTINUES TO RESPIRATORY TX. Q4 PRN. SHE WOULD LIKE THEM TO BE SCEDULED. PATIENT IS UP WITH ASSIST OF 1 STAFF AND GAIT BELT. FALL AND SAFETY PROTOCOLS IN PLACE. PATIENT C/O NAUSEA. MEDICATED WITH PRN ANTIEMETIC. PAITENT CONTINUES TO PROGESS SLOWLY TOWARDS D/C GOALS. ABD IS SOFT WITH BSX4. PATIENT C/O NO BM. MEDICATED WITH PRN MED FOR CONSTIPATION. WILL CONTINUE TO MONITER.
[2019-07-17 20:07] VITALS: BP 142/35
--- NOTE | 2019-07-18 05:30 | NUR ---
SKIN TEAR AT 1999 LAST EVENING CONTINUES TO OOZE SANGUINOUS DRAINAGE DESPITE A SERIES OF 4 GAUZE PRESSURE DRESSINGS WITH OPSITE TO COVE AND MONITOR. PATIENT HAS BEEN ANXIOUS AND REQUESTING BREATHING TREATMENTS MORE OFTEN THAN EVERY 4 HOURS. ENCOURAGED PATIENT TO SIT UP AT EDGE OF BED IN ORDER TO GET FULL BENEFIT AND DOSE OF BREATHING TREATMENT, RESTLESS AND NAUSEOUS THROUGHOUT NIGHT. STATES MYLANTA MORE HELPFUL THAN ZOFRAN FOR NAUSEA. SMALL AMOUNT EMESIS TWICE THIS SHIFT.
[2019-07-18 07:20] VITALS: BP 130/43
[2019-07-18 11:15] VITALS: BP 163/95
--- NOTE | 2019-07-18 14:29 | NUR ---
ASSUMED CARE AROUND 0700, PT A&O X 4, NO ACUTE DISTRESS NOTED. VSS, 02 ON 4L VIA NC WITH ROLANDO RESP TX. AROUND 0915, DRESSING TO SKIN TEAR ON RFA WAS SATURATED WITH BLOOD, NOTIFIED DR. RASHEED SINCE PT IS ON PLAVIX AND XARELTO. HELD PRESSURE TO AREA AND DR. RASHEED ASSESSED WOUND AT BEDSIDE AND APPLIED PRESSURE DRESSING. OK GIVEN TO HOLD PLAVIX AND XARELTO DUE TO BLEEDING. DRESSING WAS CHANGED AGAIN AT 1130. PT C/O OF NAUSEOUS FEELING THROUGHOUT SHIFT AND DID NOT EAT MUCH OF BREAKFAST OR LUNCH. GIVEN PRN MYLANTA WITH SOME RELIEF AND PT WAS ABLE TO TOLERATE MEDS. NO EMESIS DURING SHIFT. PT HAD LARGE LOOSE BM AT BEGINING OF SHIFT, USES BR TO VOID ALSO. PT RESTING IN BED, CALL LIGHT WITHIN REACH, WILL CONTINUE TO MONITOR PER POC.
--- NOTE | 2019-07-18 15:28 | NUR ---
PT DRESSING TO LFA SATURATED, APPLIED PRESSURE TO WOUND >5 MINS BUT BLEEDING CONTINUED. APPLIED PRESSURE DRESSING AND NOTIFIED DR. RASHEED. GIVEN ORDERS TO CONSULT DR HAND WITH SURGERY. WILL CONTINUE TO MONITOR PER POC.
[2019-07-18 17:45] VITALS: BP 156/53
--- NOTE | 2019-07-18 18:20 | NUR ---
AROUND 1630, DR. HAND ASSESSED PT BLEEDING WOUND AT BEDSIDE, AND APPLIED ANOTHER PRESSURE DRESSING TO STOP BLEED. NO SATURATION NOTED SO FAR, WILL CONTINUE TO MONITOR.
[2019-07-18 19:42] VITALS: BP 150/46
--- NOTE | 2019-07-19 03:05 | NUR ---
assumed care at approx 1900 evening 07/17. pt sitting up in bed at change of shift needing to go to the bathroom. pt up with standby assist. 02 at 5l per n/c. pt getting resp tx as ordered. pt c/o shortness of breath and pt with wheezing and lungs course. order for solu-medrol and given per saline lock to right ac. pt presently appears to be sleeping. bed alarm on and call light in reach. will continue to monitor.
[2019-07-19 07:05] VITALS: BP 129/57
--- NOTE | 2019-07-19 11:45 | EKG ---
[facility] [address] ELECTROCARDIOGRAM REPORT Name: VICENTE TORRES Room #: 509-P ADM IN M.R.#: [id number] Admission: 07/14/19 Attend Phys: Gonzalez Cheng MD Discharge: Date of : 44 Report #: [id number] THIS REPORT FOR: cc: FAM - Family physician unknown FAM - Family physician unknown Rachid De Leon MD ~ THIS REPORT FOR: //name// [facility] Test Date: 2019-07-19 Test Time: 09:35:05 Pat Name: VICENTE TORRES Department: Room: 509 P Gender: F Wireless Operator: Fransisca ARBOLEDA : 1940 Requested By: Halle Medrano Order Number: [id number] MD: Rachid De Leon Measurements Intervals [place] Rate: 68 P: 71 WI: 189 QRS: -3 QRSD: 120 T: 69 QT: 491 QTc: 523 Interpretive Statements Sinus rhythm Probable left atrial enlargement Incomplete left bundle branch block LVH with secondary repolarization abnormality Compared to ECG 07/10/2019 09:14:30 Electronically Signed On 07-19-2019 11:43:26 CDT by Rachid De Leon [email or web address] <ELECTRONICALLY SIGNED> By: Rachid De Leon MD 07/19/19 1143 0935 Rachid De Leon MD /EPI
[2019-07-19 14:07] LABS: HEMATOCRIT 21.3 % (37.0-47.0); HEMOGLOBIN 7.2 gm/dL (12.0-15.0); MCH 32.6 pg (26.0-34.0); MCHC 33.9 g/dL (28.0-37.0); RBC 2.22 mil/uL (4.20-5.00); RDW 13.4 % (10.5-14.5); WBC 5.8 thou/uL (4.0-11.0)
[2019-07-19 14:14] LABS: ANION GAP < 0 mmol/L (7-16); BUN 30 mg/dL (7-18); CALCIUM 9.9 mg/dL (8.5-10.1); GLUCOSE 159 mg/dL (74-106); MAGNESIUM 1.7 mg/dL (1.8-2.4)
[2019-07-19 14:24] LABS: CHLORIDE 92 mmol/L (98-107); CO2 42 mmol/L (21-32); SODIUM 130 mmol/L (136-145)
[2019-07-19 14:28] LABS: POTASSIUM 6.4 mmol/L (3.5-5.1)
--- NOTE | 2019-07-19 15:17 | NUR ---
ASSUMED CARES AT 0700. PT ORIENTED TO PERSON AND PLACE, FORGETFUL AND CONFUSED THIS AM. DIFFICULTY FINDING WORDS. DENIES PAIN. VITALS STABLE. CARDIOLOGY AND HOSPITALIST FOLLOWING, ORDERS RECEIVED, CONTINUE TO MONITOR PT. PT CONTINUES TO HAVE BRUISING AROUND BUE, BLE AND CHEST, XARELTO REMAINS ON HOLD. LS COARSE, PT CONTINUES TO HAVE SOB WITH ACTIVITY, BREATHING TREATMENT PROVIDED NEEDED. PT HAS 2+ EDEMA ON RIGHT HAND, EXTREMITY ELEVATED, IV LASIX ADMINISTERED PER ORDER. NEW PIV STARTED ON LEFT AC, 221 GAUGE. PT UP WITH 1 MIN ASSIST, GB AND WALKER. Q1H VISUAL CHECKS. CALL LIGHT WITHIN REACH. FALL PRECAUTIONS IN PLACE
[2019-07-19 19:32] VITALS: BP 118/41
--- NOTE | 2019-07-20 03:20 | NUR ---
ASSUMED CARE AROUND 1900, PT A&O X 3 NO ACUTE DISTRESS NOTED. VSS, O2 ON 5L VIA NC. PT DENIED ANY PAIN OR DISCOMFORT, NO N/V. IV TO LAC STAT LOCK AND FLUSHES WELL. NO BLEEDING OVERNIGHT TO SKIN TEAR ON RFA, DRESSING C/D/I. PT TOLERATED MEDS CRUSHED WITH APPLESAUCE. CONTINENT OF B&B, NO BM DURING SHIFT. PT ASLEEP, CALLLIGHT WITHIN REACH, WILL CONTINUE TO MONITOR PER POC.
[2019-07-20 07:18] LABS: BASOPHILS 0.1 % (0.0-2.0); MONOCYTES 5.9 % (1.0-8.0); RDW 13.9 % (10.5-14.5); WBC 11.2 thou/uL (4.0-11.0)
[2019-07-20 07:19] LABS: ABSOLUTE NEUTROPHILS 9.6 thou/uL (1.4-8.2); LYMPHOCYTES 8.2 % (24.0-44.0); MCH 32.6 pg (26.0-34.0); MCHC 33.9 g/dL (28.0-37.0); MCV 96.1 fL (80.0-100.0); PLATELET COUNT 257 thou/uL (150-400); POLYS 85.8 % (36.0-66.0); RBC 1.89 mil/uL (4.20-5.00)
[2019-07-20 07:22] LABS: HEMATOCRIT 18.2 % (37.0-47.0); HEMOGLOBIN 6.2 gm/dL (12.0-15.0)
[2019-07-20 07:33] LABS: ANION GAP < 0 mmol/L (7-16); BUN 42 mg/dL (7-18); CALCIUM 10.1 mg/dL (8.5-10.1); CHLORIDE 90 mmol/L (98-107); CO2 43 mmol/L (21-32); CREATININE 1.5 mg/dL (0.6-1.0); GLUCOSE 95 mg/dL (74-106); MAGNESIUM 1.9 mg/dL (1.8-2.4); SODIUM 130 mmol/L (136-145)
[2019-07-20 07:34] LABS: POTASSIUM 6.1 mmol/L (3.5-5.1)
[2019-07-20 07:45] VITALS: BP 140/62
[2019-07-20 11:33] VITALS: BP 137/62; BP 141/55
--- NOTE | 2019-07-20 12:20 | NUR ---
ASSUMED CARE OF PT AT 0715. PT IS A&OX3. IS ON 5L OF O2/NC. PT DESATS TO LOW 88% WHEN AMBULATING WITH O2. IS BETWEEN 91%-92% AT REST. DENIES PAIN. HAS SCATTERED BRUISING THROUGHOUT BODY. PT IS CURRENTLY STABLE. IS LYING IN BED WATCHING TV. THIS NURSE AT BEDSIDE. PT HAD CRITICAL LAB VALUES THIS AM THAT HAVE BEEN CALLED IN TO HOSPITALIST No VILLAFUERTE ORDERS GIVEN & EXECUTED. PT IS CURRENTLY RECEIVING FIRST UNIT OF 2L OF BLOOD ORDER. SO FAR IS TOLERATING WELL. WILL CONTINUE TO MONITOR. VITALS ASSESSED & LABS REVIEWED. FALL PRECAUTIONS & HOURLY ROUNDING CONTINUED THIS SHIFT. PT IS KNOW TO TURN OF BED ALARM & HAS BEEN EDUCATED REGARDING IMPORTANCE OF PT SAFETY. PT IS UP WITH WITH 1 ASSIST, GB. MAY BENEFIT FROM USE OF WALKER. DOES NOT WANT TO USE. PT DOES NOT HAVE A STEADY GAIT. LOOSES BALANCE. EASILY. WILL CONTINUE TO MONITOR.
--- NOTE | 2019-07-20 12:33 | NUR ---
bedside staff delivered hh list choice, cm placed vendor form on chart. team meeting, recommendation: pt getting 2 unites of blood today, having some acute medical changes . gi following possible gi bleed. nauseated. diet mech soft. anticipated dc on 07/27/19 home with increased family assistance, hh (pt, ot, st, nursing, sw ). family to assist with bills and pills. follow up with primary dr prior to driving.
--- NOTE | 2019-07-20 14:25 | NUR ---
Nutrition: No menus saved for calorie count. Spoke with nsg, RD will followup 07/20. PO doc on 07/18 as 20% breakfast, 80% lunch, refused dinner. Supplements provided on all trays but recent documentation of refusal. May benefit from appetite stimulant. RD will followup 6 for calorie count results.
[2019-07-20 16:37] VITALS: BP 127/39; BP 155/63; BP 157/63
[2019-07-20 19:35] VITALS: BP 127/39
[2019-07-20 22:38] LABS: HEMATOCRIT 27.3 % (37.0-47.0)
[2019-07-20 22:39] LABS: HEMOGLOBIN 9.3 gm/dL (12.0-15.0)
[2019-07-20 22:48] LABS: CALCIUM 9.9 mg/dL (8.5-10.1); CREATININE 1.7 mg/dL (0.6-1.0)
[2019-07-20 22:49] LABS: POTASSIUM 5.1 mmol/L (3.5-5.1)
[2019-07-21 02:20] LABS: BE(vivo) 2.5 mmol/L (-2 to +3); HCO3 34.9 mmol/L (22.0-26.0); sO2 90.8 % (92.0-98.0)
[2019-07-21 02:22] LABS: pH 7.105 (7.360-7.450)
[2019-07-21 02:26] LABS: PCO2 113.8 mmHg (35.0-45.0)
--- NOTE | 2019-07-21 03:54 | NUR ---
TOLERATED 2 UNITS PACKED RED CELLS AND WAS SLEEPING WELL UNTIL 0130, AWAKE AND TOO SOA TO WALK TO TOILET. UP TO BSC WITH ONE PERSON ASSIST AND UNABLE TO CATCH BREATH AFTERWARDS EVEN AFTER BREATHING TREATMENT. MANUFACTURING ENGINEERING TECHNICIAN CALLED AT 0200. AFTER ABGs RESULTED, PATIENT PLACED ON BIPAP WITH PLANS TO TAKE HER TO ROOM 207 WHEN ROOM AVAILABLE.
[2019-07-21 04:07] LABS: HCO3 40.8 mmol/L (22.0-26.0); PO2 86.8 mmHg (80.0-100.0); sO2 93.9 % (92.0-98.0)
[2019-07-21 04:08] LABS: PCO2 101.4 mmHg (35.0-45.0); pH 7.223 (7.360-7.450)
[2019-07-21 05:59] LABS: ABSOLUTE NEUTROPHILS 13.7 thou/uL (1.4-8.2); BASOPHILS 0.2 % (0.0-2.0); HEMATOCRIT 31.2 % (37.0-47.0); HEMOGLOBIN 10.4 gm/dL (12.0-15.0); LYMPHOCYTES 3.9 % (24.0-44.0); MCH 30.7 pg (26.0-34.0); MCHC 33.4 g/dL (28.0-37.0); MCV 91.9 fL (80.0-100.0); MONOCYTES 5.7 % (1.0-8.0); PLATELET COUNT 310 thou/uL (150-400); POLYS 90.2 % (36.0-66.0); RBC 3.39 mil/uL (4.20-5.00); RDW 16.5 % (10.5-14.5); WBC 15.2 thou/uL (4.0-11.0)
[2019-07-21 06:25] LABS: ANION GAP < 0 mmol/L (7-16); BUN 42 mg/dL (7-18); CALCIUM 10.1 mg/dL (8.5-10.1); CHLORIDE 90 mmol/L (98-107); CO2 43 mmol/L (21-32); CREATININE 1.6 mg/dL (0.6-1.0); GLUCOSE 130 mg/dL (74-106); MAGNESIUM 1.5 mg/dL (1.8-2.4); POTASSIUM 5.3 mmol/L (3.5-5.1); SODIUM 131 mmol/L (136-145)
--- NOTE | 2019-07-21 08:00 | EKG ---
[facility] [place] [address] ELECTROCARDIOGRAM REPORT Name: TJ TORRESGIOVANI Bhakta Room #: 509-[facility] IN M.R.#: [id number] Admission: 07/14/19 Attend Phys: Gonzalez Cheng MD Discharge: 07/21/19 Date of : 44 Report #: [id number] THIS REPORT FOR: cc: FAM - Family physician unknown FAM - Family physician unknown Kristian Mandujano MD [facility] ~ THIS REPORT FOR: //name// [facility] Test Date: 2019-07-20 Test Time: 10:42:34 Pat Name: VICENTE TORRES Department: Room: 509 P Gender: F Clerical Support: Fransisca ARBOLEDA : 1940 Requested By: Halle Medrano Order Number: [id number] MD: Kristian Mandujano Measurements Intervals [place] Rate: 66 P: 82 NE: 206 QRS: 16 QRSD: 123 T: 18 QT: 444 QTc: 466 Interpretive Statements Sinus rhythm Left bundle branch block Compared to ECG 07/19/2019 09:35:05 No significant change was found Electronically Signed On 07-21-2019 7:58:09 CDT by Kristian Mandujano [email or web address] <ELECTRONICALLY SIGNED> By: Kristian Mandujano MD, [facility] 07/21/19 0758 1042 1042 Kristian Mandujano MD, [facility] /EPI
== END 2019-07-21 04:19 | disposition short-term general hospital (02) | DRG 947 ==
PROVIDERS: Nurse Practitioner; Nurse Practitioner Adult Health; ADMIT Physical Medicine & Rehabilitation
PROC: 30233N1 Transfusion of Nonautologous Red Blood Cells into Peripheral Vein, Percutaneous Approach (ICD-10-PCS; principal; 2019-07-20)
DX: R53.81 Other malaise (principal); J96.21 Acute and chronic respiratory failure with hypoxia; J96.22 Acute and chronic respiratory failure with hypercapnia; N39.0 Urinary tract infection, site not specified; D62 Acute posthemorrhagic anemia; I48.0 Paroxysmal atrial fibrillation; F32.9 Major depressive disorder, single episode, unspecified; R19.7 Diarrhea, unspecified; J44.9 Chronic obstructive pulmonary disease, unspecified; I25.10 Atherosclerotic heart disease of native coronary artery without angina pectoris; I50.9 Heart failure, unspecified; K21.9 Gastro-esophageal reflux disease without esophagitis; F41.9 Anxiety disorder, unspecified; I73.9 Peripheral vascular disease, unspecified; Z66 Do not resuscitate; G25.81 Restless legs syndrome; R00.1 Bradycardia, unspecified; E87.5 Hyperkalemia; D63.8 Anemia in other chronic diseases classified elsewhere; F17.210 Nicotine dependence, cigarettes, uncomplicated; Z88.6 Allergy status to analgesic agent; Z88.8 Allergy status to other drugs, medicaments and biological substances; Z98.42 Cataract extraction status, left eye; Z98.41 Cataract extraction status, right eye; Z90.710 Acquired absence of both cervix and uterus; Z90.49 Acquired absence of other specified parts of digestive tract; Z99.81 Dependence on supplemental oxygen
CPT/HCPCS: 10112

== ENCOUNTER 2019-07-21 03:32 | Inpatient (IN) | payer OTHER, BC ==
[~2019-07-21] VITALS: Ht 160 cm; Wt 46.3 kg
[2019-07-21 04:30] VITALS: BP 158/63
--- NOTE | 2019-07-21 07:53 | NUR ---
PATIENTS CARES WERE ASSUMED AT APPROX 0330. PATIENT WENT INTO RESP. DISTRESS WHILE UP IN THE REHAB UNITE. PATIENT CAME TO THE FLOOR ABOUT 0430. PATIENT WAS ADMITTED BUT SHE WAS UNABLE TO TALK. ABG WERE DOCUMENTED. TALKED TO THE GI LAB AND I BELIEVE THE EGD WILL OR HAS BEEN CANCELLED. PATIENTS DNR ORDER WAS WRITTEN. SHE WAS ON A 2GM SODIUM DIET. HOURLY ROUNDS WERE DONE, THE BED IS IN A LOW AND LOCKED POSTITION.
[2019-07-21 08:21] VITALS: BP 148/53
--- NOTE | 2019-07-21 10:25 | NUR ---
Case opened to follow for dc planning. Pt was on 5N acute rehab prior to transfer back to acute care yesterday pm due to acute respiratory failure. Pt is being followed by GI for possible scope due to drop in hgb and possible gi bleed. The pt was living indep in an apt. She has home o2 thru [facility] at 4liters baseline d/t COPD. She does not use an assistive device and and rehab was planning on dc back home with hh soon. She was open to using [facility] or [facility]. Case discussed with the care team. EGD on hold today. The attending to f/u with the pt's dtr Ann-Marie. Will ask for PT/OT/5N to reeval as appropriate.
[2019-07-21 12:43] VITALS: BP 159/54
[2019-07-21 16:40] VITALS: BP 151/52
--- NOTE | 2019-07-21 17:03 | NUR ---
FAXED REFERRAL TO [facility] SPOKE WITH [facility] IN INTAKE THEY CAN ACCEPT BUT NEED TO KNOW PCP WILL F/U WITH PT AND NOTIFY [facility].
--- NOTE | 2019-07-21 18:18 | NUR ---
PT ALERT AND ORIENTED TIMES FOUR, WITH PERIODS OF CONFUSION WITH SOME AGITATION THROUGHOUT THE SHIFT. VSS, PT ON BIPAP AND DESATS QUICKLY WHEN TAKEN OFF. PT DENIES PAIN. PT UP TO BSC WITH STANDBY ASSSIT. SPOKE WITH PT DAUGHTER UPDATED ON CARE. WILL CONTINUE TO MONITOR.
[2019-07-21 18:43] LABS: URINE BILIRUBIN NEGATIVE (Negative); URINE BLOOD NEGATIVE (Negative); URINE CLARITY CLEAR; URINE COLOR YELLOW; URINE GLUCOSE-RANDOM* NEGATIVE (Negative); URINE KETONES NEGATIVE (Negative); URINE LEUKOCYTES-REFLEX NEGATIVE (Negative); URINE NITRITE-REFLEX NEGATIVE (Negative); URINE PROTEIN (DIPSTICK) NEGATIVE (Negative); URINE UROBILINOGEN 0.2 E.U./dl (0.2-1.0)
[2019-07-21 21:30] VITALS: BP 148/75
[2019-07-22 03:52] VITALS: BP 129/74
--- NOTE | 2019-07-22 04:05 | NUR ---
ASSUMED PT CARE AT 1900. PT IS LAYING IN BED AND DROWSY. BIPAP AND CPOX NOTED ON PT. NO SIGN OF DISTRESS NOTED IN PT. PT IS ALERT AND ORIENTED. DENIES ANY PAIN. FALL PRECAUTION IN PLACE. CALL LIGHT WITHIN REACH. ASSESSMENT COMPLETED AND DOCUMENTED. SCHEDULED MEDS ADMINISTERED TO PT. TOLERATED PO INTAKE. CONTINUE TO MONITOR PATIENT. NO ACUTE EVENTS NIGHT. DENIES ANY FURTHER NEEDS AT THIS TIME.
[2019-07-22 06:26] LABS: CALCIUM 9.5 mg/dL (8.5-10.1); CREATININE 1.4 mg/dL (0.6-1.0); POTASSIUM 4.7 mmol/L (3.5-5.1)
[2019-07-22 07:30] VITALS: BP 149/55
[2019-07-22 07:31] LABS: HEMATOCRIT 28.8 % (37.0-47.0); HEMOGLOBIN 9.9 gm/dL (12.0-15.0); MCH 31.6 pg (26.0-34.0); MCHC 34.5 g/dL (28.0-37.0); MCV 91.7 fL (80.0-100.0); RBC 3.14 mil/uL (4.20-5.00); RDW 15.5 % (10.5-14.5); WBC 7.7 thou/uL (4.0-11.0)
--- NOTE | 2019-07-22 08:55 | EKG ---
[facility] [place] [address] ELECTROCARDIOGRAM REPORT Name: TJ TORRESGIOVANI Bhakta Room #: 207-P ADM IN M.R.#: [id number] Admission: 07/21/19 Attend Phys: eDan Blackburn MD Discharge: Date of : 44 Report #: [id number] THIS REPORT FOR: cc: FAM - Family physician unknown FAM - Family physician unknown Kristian Mandujano MD [facility] THIS REPORT FOR: //name// [facility] Test Date: 2019-07-22 Test Time: 08:14:30 Pat Name: VICENTE TORRES Department: Room: 207 P Gender: F Boarder Machine: NITA : 1940 Requested By: Josselyn Mullen Order Number: [id number] MD: Kristian Mandujano Measurements Intervals [place] Rate: 55 P: 80 NV: 168 QRS: 16 QRSD: 119 T: 67 QT: 539 QTc: 516 Interpretive Statements Sinus rhythm Left bundle branch block Compared to ECG 07/20/2019 10:42:34 No significant change was found Electronically Signed On 07-22-2019 8:53:23 CDT by Kristian Mandujano [email or web address] <ELECTRONICALLY SIGNED> By: Kristian Mandujano MD, [facility] 07/22/19 0853 3 Kristian Mandujano MD, [facility] /EPI
[2019-07-22 11:55] VITALS: BP 135/41
--- NOTE | 2019-07-22 15:06 | NUR ---
Possibe EGD tomorrow per GI. 5N rehab medicine re evaling. Pt on bipap over night. Therapy evals in progress. Will follow.
[2019-07-22 16:00] VITALS: BP 118/74
--- NOTE | 2019-07-22 16:09 | 2DMMODE ---
[address] [address] 2 D/M-MODE ECHOCARDIOGRAM Name: VICENTE TORRES Yony Room #: 207-P ADM IN M.R.#: [id number] Admission: 07/21/19 Attend Phys: Dean Blackburn MD Discharge: Date of : 42 Report #: [id number] THIS REPORT FOR: cc: FAM - Family physician unknown FAM - Family physician unknown Neel Pena MD [facility] ~ APPROVED REPORT Study performed: 07/22/2019 12:37:20 EXAM: Comprehensive 2D, Doppler, and color-flow Echocardiogram Patient Location: Echo lab Room #: 207 Status: routine BSA: 1.43 HR: 67 bpm BP: 149/55 mmHg Rhythm: NSR Other Information Study Quality: Good Indications COPD Atrial Fibrillation Dyspnea CAD Syncope Left Ventricle The left ventricle is normal size. There is normal LV segmental wall motion. There is normal left ventricular wall thickness. The left ventricular systolic function is normal. The left ventricular ejection fraction is within the normal range. LVEF is 50-55%. Right Ventricle The right ventricle is normal size. The right ventricular systolic function is normal. Atria The left atrium size is normal. The right atrium size is normal. Aortic Valve [address] [address] 2 D/M-MODE ECHOCARDIOGRAM Name: VICENTE TORRES Room #: 207-P ADM IN M.R.#: [id number] Admission: 07/21/19 Attend Phys: Dean Blackburn MD Discharge: Date of : 44 Report #: [id number] The aortic valve is normal in structure. Mitral Valve The mitral valve is normal in structure. Tricuspid Valve The tricuspid valve is normal in structure. Pulmonic Valve The pulmonary valve is normal in structure. Great Vessels The aortic root is normal in size. IVC is normal in size and collapses >50% with inspiration. Pericardium There is no pericardial effusion. <Conclusion> The left ventricle is normal size. LVEF is 50-55%. The right ventricle is normal size. The left atrium size is normal. The aortic valve is normal in structure. The mitral valve is normal in structure. The tricuspid valve is normal in structure. The aortic root is normal in size. There is no pericardial effusion. <ELECTRONICALLY SIGNED> By: Neel Pena MD, [facility]ACC 07/22/19 1607 1607 06 Neel Pena MD, FACC /INF
--- NOTE | 2019-07-22 18:07 | NUR ---
ASSUMED CARE AT SHIFT CHANGE, ALERT AND ORIENTED X4. ASSESSMENT DOCUMENTED AND VSS. DENIES ANY DISCOMFORT. REMAINS O2 SAT MONITOR AND WILL COTNINUE WITH POC.
[2019-07-22 20:09] VITALS: BP 124/37
[2019-07-23 04:35] VITALS: BP 167/38
--- NOTE | 2019-07-23 04:36 | NUR ---
ASSUMED PT CARE AT 1900. PT IS ALERT AND ORIENTED. NO SIGN OF DISTRESS NOTED IN PT. DENIES ANY PAIN. FALL PRECAUTION IN PLACE. CALL LIGHT WITHIN REACH. ASSESSMENT COMPLETED AND DOCUMENTED. SCHEDULED MEDS ADMINISTERED TO PT. PT IS NPO AFTER MIDNIGHT FOR AN EGD. PT VERBALIZES UNDERSTANDING. NO ACUTE EVENTS OVERNIGHT. CONTINUE TO MONITOR. NO FURTHER NEEDS AT THIS TIME.
[2019-07-23 05:32] LABS: HEMATOCRIT 32.9 % (37.0-47.0); MCH 30.8 pg (26.0-34.0); MCHC 33.5 g/dL (28.0-37.0); MCV 91.8 fL (80.0-100.0); RBC 3.59 mil/uL (4.20-5.00); RDW 15.5 % (10.5-14.5); WBC 10.2 thou/uL (4.0-11.0)
[2019-07-23 06:58] LABS: CALCIUM 9.6 mg/dL (8.5-10.1); CREATININE 1.4 mg/dL (0.6-1.0)
[2019-07-23 07:50] VITALS: BP 151/63
[2019-07-23 12:15] VITALS: BP 152/59
[2019-07-23 15:50] VITALS: BP 144/42
--- NOTE | 2019-07-23 18:44 | NUR ---
ASSESSMENT DOCUMENTED, DENIES ANY DISCOMFORT, AND PLEASANT. PROGRESSING TOWARDS GOAL, AND WILL CONTINUE WITH POC.
[2019-07-23 20:40] VITALS: BP 151/56
--- NOTE | 2019-07-24 04:47 | NUR ---
ASSUMED PT CARE AT 1900. PT IS ALERT AND ORIENTED. PT IS LAYING IN BED, RESTING COMOFORTABLY. NO SIGN OF DISTRESS NOTED IN PT. PT IS EAGER TO TRANSFER TO REHAB. DENIES ANY PAIN. FALL PRECAUTION IN PLACE. ASSESSMENT COMPLETED AND DOCUMENTED. SCHEDULED MEDS ADMINISTERED TO PT. TOLERATED PO INTAKE. PT DIDNT WANT TO WEAR BIPAP OF THE NIGHT. MAINTAINED BREATHING THROUGHOUT THE NIGHT. NO FURTHER NEEDS REQUESTED AT THIS TIME.
[2019-07-24 05:00] VITALS: BP 152/58
[2019-07-24 06:00] LABS: HEMATOCRIT 35.5 % (37.0-47.0); HEMOGLOBIN 11.9 gm/dL (12.0-15.0); MCH 30.9 pg (26.0-34.0); MCHC 33.6 g/dL (28.0-37.0); MCV 92.1 fL (80.0-100.0); RBC 3.85 mil/uL (4.20-5.00); RDW 16.3 % (10.5-14.5); WBC 9.5 thou/uL (4.0-11.0)
[2019-07-24 06:08] LABS: CALCIUM 9.3 mg/dL (8.5-10.1); CREATININE 1.2 mg/dL (0.6-1.0)
[2019-07-24 08:00] VITALS: BP 139/55
[2019-07-24 08:15] VITALS: BP 139/55
[2019-07-24 09:19] VITALS: BP 139/55
[2019-07-24] MEDS ORDERED: IPRAT-ALBUT 0.5-3 ML INH (10:57)
[2019-07-24] MEDS ORDERED: TORSEMIDE20 MG PO (10:59)
[2019-07-24] MEDS ORDERED: PULMICORT0.5 MG/21 INH (10:59)
[2019-07-24] MEDS ORDERED: CEFDINIR300 MG PO (11:00)
[2019-07-24] MEDS ORDERED: PREDNISONE 10 M10 M1 PO (11:00)
--- NOTE | 2019-07-24 11:59 | NUR ---
PT CARE ASSUMED AT 0700. ASSESSMENT CHARTED. MEDICATION CHARTED. POTASSIUM ADMINISTERED PER DR ORDER. PT TO BE DISCHARGED TO 5N REHAB. PT REFUSED BIPA LAST NIGHT.
== END 2019-07-24 12:41 | DRG 291 ==
LOC: 2N 03:32
PROVIDERS: Nurse Practitioner; Nurse Practitioner Adult Health; Nurse Practitioner Family; ADMIT Hospitalist
PROC: 5A09457 Assistance with Respiratory Ventilation, 24-96 Consecutive Hours, Continuous Positive Airway Pressure (ICD-10-PCS; principal; 2019-07-21)
PROC: 0DJ08ZZ Inspection of Upper Intestinal Tract, Via Natural or Artificial Opening Endoscopic (ICD-10-PCS; 2019-07-23)
DX: I13.0 Hypertensive heart and chronic kidney disease with heart failure and stage 1 through stage 4 chronic kidney disease, or unspecified chronic kidney disease (principal); I50.33 Acute on chronic diastolic (congestive) heart failure; J18.9 Pneumonia, unspecified organism; J96.22 Acute and chronic respiratory failure with hypercapnia; J96.21 Acute and chronic respiratory failure with hypoxia; E43 Unspecified severe protein-calorie malnutrition; D62 Acute posthemorrhagic anemia; N39.0 Urinary tract infection, site not specified; K92.2 Gastrointestinal hemorrhage, unspecified; Z68.1 Body mass index [BMI] 19.9 or less, adult; N18.3 Chronic kidney disease, stage 3 (moderate); Z21 Asymptomatic human immunodeficiency virus [HIV] infection status; J44.9 Chronic obstructive pulmonary disease, unspecified; I73.9 Peripheral vascular disease, unspecified; I48.0 Paroxysmal atrial fibrillation; E78.5 Hyperlipidemia, unspecified; I25.10 Atherosclerotic heart disease of native coronary artery without angina pectoris; I35.1 Nonrheumatic aortic (valve) insufficiency; G25.81 Restless legs syndrome; F41.9 Anxiety disorder, unspecified; F32.9 Major depressive disorder, single episode, unspecified; E87.5 Hyperkalemia; R53.81 Other malaise; S41.101A Unspecified open wound of right upper arm, initial encounter; X58.XXXA Exposure to other specified factors, initial encounter; I95.1 Orthostatic hypotension; R00.1 Bradycardia, unspecified; K21.9 Gastro-esophageal reflux disease without esophagitis; F17.210 Nicotine dependence, cigarettes, uncomplicated; Z66 Do not resuscitate; G47.00 Insomnia, unspecified; K22.2 Esophageal obstruction; Z03.818 Encounter for observation for suspected exposure to other biological agents ruled out; Y93.89 Activity, other specified; Z98.41 Cataract extraction status, right eye; Z99.81 Dependence on supplemental oxygen; Z98.42 Cataract extraction status, left eye; Z90.49 Acquired absence of other specified parts of digestive tract; Z79.01 Long term (current) use of anticoagulants; Z88.2 Allergy status to sulfonamides; Z88.8 Allergy status to other drugs, medicaments and biological substances; Z91.041 Radiographic dye allergy status; Z79.899 Other long term (current) drug therapy; Z90.89 Acquired absence of other organs; Z88.5 Allergy status to narcotic agent; Z90.710 Acquired absence of both cervix and uterus; Z95.820 Peripheral vascular angioplasty status with implants and grafts; Y92.89 Other specified places as the place of occurrence of the external cause; Y99.8 Other external cause status
CPT/HCPCS: 10081; 62110; 62900; 70005

== ENCOUNTER 2019-07-24 11:46 | Inpatient (IN) | payer OTHER, BC ==
[~2019-07-24] VITALS: Ht 160 cm; Wt 48.4 kg
[~2019-07-24 11:46] MED LIST changes: +CEFDINIR300 MG PO; -POTASSIUM CITR15 MEQ PO; +PREDNISONE 10 M10 M1 PO; +PULMICORT0.5 MG/21 INH; +TORSEMIDE20 MG PO
[2019-07-24 16:12] VITALS: BP 127/48
--- NOTE | 2019-07-24 18:55 | NUR ---
PT CARE ASSUMED FROM 2N AT 1330. A&OX4. REPORT RECEIVED FROM YOSEF MARTIN. PT COMPLAINED OF CHESTPAIN. STAT TROPONIN AND EKG DONE WITH NORMAL RESULTS. ADMISSION COMPLEET, MEDS RECONSILED. COVID -. NO PT ORDERED FOR TODAY. BIPAP AT NIGHT. BM TODAY. STANDBY ASSIST. DAILY WEIGHT. SCD'S. ON 4-5L. CHF PROTOCOL. FALL PROTOCOL IN PLACE. REPORT GIVEN TO YOSEF MCKENNA. WILL CONTINUE TO MONITOR.
[2019-07-24 19:24] VITALS: BP 139/52
--- NOTE | 2019-07-25 03:13 | NUR ---
assumed care at approx 1900 evening 07/23. pt sitting up at change of shift in bed. pt alert and oriented x4, appropriate and cooperative. pt took hs meds with water tolerating well. pt up to bathroom to void with standby assist. pt wore bipap until approx 0215 and stated she did not want to wear anymore. 02 at 4l per n/c. spot checked O2 sat 92%. pt sitting up in bed resting at present. bed alarm on and call light in reach. will continue to monitor.
[2019-07-25 07:20] VITALS: BP 111/62
--- NOTE | 2019-07-25 07:50 | NUR ---
ASSUMED CARE OF PT AT 0715. PT IS A&OX4. IS ON 4L OF O2/NC. DENIES PAIN. IS STABLE. IS UP WITH SBAALEKSEY. FALL PRECAUTIONS & HOURLY ROUNDING CONTINUED THIS SHIFT. LABS & VITALS REVIEWED. PT IS CURRENTLY SITTING ON THE SIDE OF THE BED. DRINKING COFFEE, TALKING WITH THIS NURSE. ALARM ON. WILL CONTINUE TO MONITOR.
[2019-07-25 08:20] LABS: HEMATOCRIT 40.1 % (37.0-47.0); HEMOGLOBIN 13.4 gm/dL (12.0-15.0); MCHC 33.5 g/dL (28.0-37.0); MCV 92.5 fL (80.0-100.0); RBC 4.33 mil/uL (4.20-5.00); RDW 16.3 % (10.5-14.5); WBC 10.5 thou/uL (4.0-11.0)
[2019-07-25 08:27] LABS: BUN 63 mg/dL (7-18); CALCIUM 9.7 mg/dL (8.5-10.1); CHLORIDE 92 mmol/L (98-107); CREATININE 1.4 mg/dL (0.6-1.0); GLUCOSE 98 mg/dL (74-106); POTASSIUM 3.5 mmol/L (3.5-5.1); SODIUM 136 mmol/L (136-145)
[2019-07-25 08:31] LABS: CO2 > 45 mmol/L (21-32)
--- NOTE | 2019-07-25 08:40 | NUR ---
PT HAS AERIAL PHOTOGRAMMETRIST LAB VALUE (CO2>45). DR. MEJIA WAS NOTIFIED. ORDERS TO HAVE PT WEAR BIPAP WHEN RESTING & HS TO DECREASE RISK OF FURTHER COMPLICATIONS. PT NOTIFIED. PT IS CURRENTLY SITTING UP IN BED WATCHING TV. FINISHING COFFEE. CALL LIGHT WITHIN REACH. WILL CONTINUE TO MONITOR.
[2019-07-25 19:28] VITALS: BP 124/44
--- NOTE | 2019-07-25 23:34 | NUR ---
PT ASSESSMENT COMPLETED AND VSS. MEDS GIVEN ORDERED AND WELL TOLERATED. FALL PRECAUTIONS IN PLACE. TYLENOL GIVEN FOR GENERALIZED PAIN. BIPAP ON AT HS. SAT MONITOR WNL. SLEEPING WELL. WILL CONTINUE TO MONITOR FREQUENTLY.
--- NOTE | 2019-07-26 08:43 | EKG ---
[facility] [place] [address] ELECTROCARDIOGRAM REPORT Name: TJ TORRESGIOVANI Bhakta Room #: 505-P ADM IN M.R.#: [id number] Admission: 07/24/19 Attend Phys: Gonzalez Cheng MD Discharge: Date of : 44 Report #: [id number] THIS REPORT FOR: cc: TD - Family physician unknown FAM - Family physician unknown Kristian Mandujano MD [facility] ~ THIS REPORT FOR: //name// [facility] Test Date: 2019-07-24 Test Time: 14:25:27 Pat Name: VICENTE TORRES Department: Room: [facility] Gender: F Hoisting Engine Operator: Fransisca ARBOLEDA : 1940 Requested By: Dean Blackburn Order Number: [id number] MD: Kristian Mandujano Measurements Intervals [place] Rate: 89 P: 79 NV: 161 QRS: 34 QRSD: 122 T: 71 QT: 426 QTc: 519 Interpretive Statements Sinus rhythm Biatrial enlargement Left bundle branch block Compared to ECG 07/22/2019 08:14:30 No significant change was found Electronically Signed On 07-26-2019 8:40:58 CDT by Kristian Mandujano [email or web address] <ELECTRONICALLY SIGNED> By: Kristian Mandujano MD, [facility] 07/26/19 0840 1425 1425 Kristian Mandujano MD, [facility] /EPI
[2019-07-26 09:29] VITALS: BP 130/78
--- NOTE | 2019-07-26 14:10 | NUR ---
chart review, pt up working with therapy. cm able to say hi to her. she has been on acute rehab then dc back to acute hospital and is now back on acute rehab. she live alone in ground level apartment, has home o2 and tx from [facility] pt. had hh in past, specialized and another in past. will cont following as needed for dc needs.
[2019-07-26 19:07] VITALS: BP 138/55
--- NOTE | 2019-07-26 19:26 | NUR ---
ASSUMED CARE OF PT AT 0700. PT IS A&OX4 AND VITAL SIGNS ARE STABLE. PT DENIES PAIN AND PARTICIPATED IN SCHEDULED THERAPIES. 4L OF O2 VIA NC, O2 SATS STABLE. NO IV ACCESS. PT EXPRESSES NO CONCERNS AND STATES THAT SHE WOULD LIKE TO LEAVE HOSPITAL LATE IN THE WEEK IF POSSIBLE. CALLS APPROPRIATELY FOR ASSISTANCE. FALL PRECAUTIONS IN PLACE AND NURSING WILL CONTINUE TO MONITOR.
--- NOTE | 2019-07-27 00:40 | NUR ---
PT ASSESSMENT COMPLETED AND VSS. MEDS GIVEN ORDERED AND WELL TOLERATED. FALL PRECAUTIONS IN PLACE. UP TO THE BATHROOM WITH ASST/GAIT. PT IS IMPULSIVE AND WALKS VERY FAST. ENCOURAGED PT TO SLOW DOWN. SAT WNL ON NC AND BIPAP AT HS. PT DID WELL WITH HER BIPAP AND KNOWS THAT SHE NEEDS TO WEAR IT. SLEEPING WELL AT THIS TIME. WILL CONTINUE TO MONITOR FREQUENTLY. TYLENOL HELPFUL FOR DISCOMFORT AND SLEEP.
[2019-07-27 06:46] LABS: HEMATOCRIT 30.2 % (37.0-47.0); MCH 31.3 pg (26.0-34.0); MCHC 33.8 g/dL (28.0-37.0); MCV 92.6 fL (80.0-100.0); RBC 3.26 mil/uL (4.20-5.00); RDW 15.6 % (10.5-14.5); WBC 10.7 thou/uL (4.0-11.0)
[2019-07-27 06:47] LABS: HEMOGLOBIN 10.2 gm/dL (12.0-15.0)
[2019-07-27 08:00] VITALS: BP 149/54
[2019-07-27 13:18] LABS: CALCIUM 8.7 mg/dL (8.5-10.1); CREATININE 1.1 mg/dL (0.6-1.0); MAGNESIUM 1.3 mg/dL (1.8-2.4); POTASSIUM 3.3 mmol/L (3.5-5.1)
--- NOTE | 2019-07-27 13:49 | NUR ---
team meeting, recommendation: 12th dc ( pt, st, ot and nursing). she is using bipap here and will need one at home, bedside nurse to discuss with pulm and will need to do outpt sleep study.
[2019-07-27 19:29] VITALS: BP 127/46
--- NOTE | 2019-07-27 19:53 | NUR ---
ASSUMED CARE OF PT AT 0700. PT IS A&OX4 AND VITAL SIGNS ARE STABLE. PT DENIES PAIN AND PARTICIPATED IN SCHEDULED THERAPIES. PT DOES REPORT INCREASED ANXIETY, NEW ORDERS OBTAINED FROM DR. RODRIGUES. ORDERS TO OBTAIN STOOL SAMPLE. PT REPORTED HAVING BOWEL MOVEMENT THIS SHIFT BUT THAT IT NOT CAUGHT BY THE HAT BUT REPORTED IT DARK. PT IS IMPULSIVE AND WILL ATTEMPT TO SELF AMBULATE AND FAILS TO CALL FOR ASSISTANCE NEEDED. FALL PRECAUTIONS IN PLACE. NURSING WILL CONTINUE TO MONITOR.
--- NOTE | 2019-07-28 02:43 | NUR ---
assumed care at approx 1900 evening 07/26. pt sitting up in bed at change of shift. pt alert and oriented x4, appropriate and cooperative. pt stated she is very glad to be dcd on Friday.02 at 4l per n/c. pt wore bipap until approx 0100 then pt stated the tubing was bothering her and she refused to wear anymore. resp therapy aware. pts sats staying at 92% and greater. pt dozing off and on requesting several snacks tonight francine crackers. call light in reach. bed alarm on, will continue to monitor.
[2019-07-28 05:41] VITALS: BP 125/45
[2019-07-28 06:52] LABS: HEMATOCRIT 29.6 % (37.0-47.0); HEMOGLOBIN 10.1 gm/dL (12.0-15.0); MCH 31.7 pg (26.0-34.0); MCV 93.2 fL (80.0-100.0); RBC 3.18 mil/uL (4.20-5.00)
[2019-07-28 08:00] VITALS: BP 125/45
--- NOTE | 2019-07-28 09:41 | NUR ---
FAXED REFERRAL TO [facility] SPOKE WITH ALYSON IN INTAKE SHE RECEIVED REFERRAL AND WILL ACCEPT AT [place].
[2019-07-28 09:42] VITALS: BP 125/45
[2019-07-28 12:59] LABS: ANION GAP < 0 mmol/L (7-16); BUN 63 mg/dL (7-18); CALCIUM 9.2 mg/dL (8.5-10.1); CHLORIDE 97 mmol/L (98-107); CO2 40 mmol/L (21-32); CREATININE 1.2 mg/dL (0.6-1.0); GLUCOSE 90 mg/dL (74-106); MAGNESIUM 1.4 mg/dL (1.8-2.4); POTASSIUM 4.2 mmol/L (3.5-5.1); SODIUM 135 mmol/L (136-145)
[2019-07-28 19:11] VITALS: BP 151/52
--- NOTE | 2019-07-28 20:16 | NUR ---
ASSUMED CARE OF PT AT 0700. PT IS A&OX4 AND VITAL SIGNS ARE STABLE. PT MOD I IN ROOM PER ORDERS. FALL PRECAUTIONS DISCUSSED WITH PT. STOOL SAMPLE OBTAINED PER ORDERS. PT STATED THAT SHE DID NOT WANT TO HAVE SLEEP STUDY DONE POST DISCHARGE BECAUSE SHE STATED THAT SHE WOULD NEVER WEAR A "MACHINE" BECAUSE IT MAKES IT HARD FOR HER TO SLEEP. PT REPORTS FEELING LIKE SHE NEEDS TO GET UP AND MOVE MORE AND EXPRESSED CONCERN ABOUT HAVING DIFFICULTY STAYING ASLEEP AT NIGHT. CONCERNS DISCUSSED WITH DR. RODRIGUES. FALL PRECAUTIONS IN PLACE AND NURSING WILL CONTINUE TO MONITOR.
--- NOTE | 2019-07-29 03:30 | NUR ---
ASSESSMENT: PT REMAIN ALERT AND ORIENT TIMES FOUR. UP AD CRISTOPHER IN ROOM WITH DSTEADY GAIT. TOLERATED BIPAP FOR 5 HRS THEN SWITCH BACK TO NC. VSS, AFEBRILE. AMBIEN GIVEN FOR THE NIGHT. POSSIBLE DC FRIDAY. TOLERATING PO INTAKE SLOW PROGRESS TOWARDS DC GOALS. WILL CONTINUE TO MONITOR.
[2019-07-29 08:00] VITALS: BP 129/57
--- NOTE | 2019-07-29 11:42 | NUR ---
cm was asked if pt would get bipap set up prior to dc, in pulm recommend. pt will requirer a sleep study before bipap can be set up. pt does have home o2.
[2019-07-29] MEDS ORDERED: IPRAT-ALBUT 0.5-3 ML INH ×2 (12:19→16:01)
[2019-07-29] MEDS ORDERED: COLACE100 MG PO (12:22)
--- NOTE | 2019-07-29 16:42 | NUR ---
ASSUMED CARE OF PT AT 0715. PT IS A&OX4. IS ON 4L OF O2/NC. DENIES PAIN. IS ON STABLE. IS UP MOD I IN ROOM. HOURLY ROUNDING CONTINUED THIS SHIFT. LABS & VITALS REVIEWED. PT IS CURRENTLY IN ROOM WAITING FOR DINNER. WILL CONTINUE TO MONITOR.
[2019-07-29 19:25] VITALS: BP 144/52
--- NOTE | 2019-07-30 04:54 | NUR ---
TOLERATED BIPAP FOR 90 MINUTES AND THEN REFUSED O2 SAT MONITOR WELL. APPRECIATED THE 4L O2 PNC. STATES WILL BE GLAD TO HAVE AN OUTPATIENT SLEEP STUDY AND REALIZES SHE SHOULD QUIT SMOKING
[2019-07-30 05:50] LABS: HEMATOCRIT 29.7 % (37.0-47.0); HEMOGLOBIN 9.9 gm/dL (12.0-15.0); MCH 31.1 pg (26.0-34.0); MCHC 33.2 g/dL (28.0-37.0); MCV 93.8 fL (80.0-100.0); PLATELET COUNT 224 thou/uL (150-400); RBC 3.17 mil/uL (4.20-5.00); RDW 15.9 % (10.5-14.5); WBC 10.8 thou/uL (4.0-11.0)
[2019-07-30 06:16] LABS: CREATININE 1.1 mg/dL (0.6-1.0); MAGNESIUM 1.6 mg/dL (1.8-2.4); POTASSIUM 4.1 mmol/L (3.5-5.1)
[2019-07-30 07:48] VITALS: BP 145/57
[2019-07-30] MEDS ORDERED: TORSEMIDE20 MG PO (09:12)
[2019-07-30] MEDS ORDERED: PREDNISONE 10 M10 M1 PO (09:12)
[2019-07-30] MEDS ORDERED: POTASSIUM CITR15 MEQ PO ×2 (09:14→09:15)
--- NOTE | 2019-07-30 09:40 | NUR ---
rx for sleep study, cm spoke with [facility] outpt sleep lab. pt will need covid negative test 5 days prior to sleep study. pt going to get covid test prior to dc today, then she will be able to go to [facility] sleep lab on 08/02/2019. pt dc home with [facility], family to assist with pills and bill. no driving until cleared by MD after dc from acute rehab.
[2019-07-30] MEDS ORDERED: PLAVIX 75 MG TA75 M1 PO (10:21)
[2019-07-30] MEDS ORDERED: PREDNISONE 5 MG5 MG PO (10:24)
[2019-07-30] MEDS ORDERED: CARDIZEM CD120 MG PO (10:25)
[2019-07-30] MEDS ORDERED: KLOR-CON M2020 MEQ PO (10:59)
[2019-07-30 11:00] LABS: ABSOLUTE NEUTROPHILS 8.3 thou/uL (1.4-8.2); MYELOCYTES 1 %
[2019-07-30 11:01] LABS: ANISOCYTOSIS 1+
--- NOTE | 2019-07-30 11:04 | NUR ---
ASSUMED CARES AT 0700. PT AWAKE, ALERT AND ORIENTED*4. DENIES PAIN. VITALS REMAIN STABLE. SATS >92% ON 4L VIA NC. LS CLEAR. COVID TEST DONE AT THE BEDSIDE, RESULTS PENDING. PT REMAINS MOD I IN ROOM AND TOLERATED WELL. DC TEACHING AND INSTRUCTIONS COMPLETED AT THE BEDSIDE AND PT VERBALISED UNDERSTANDING. PT TO DC THIS MORNING WITH DAUGHTER. Q1H VISUAL CHECKS. CALL LIGHT WITHIN REACH. FALL PRECAUTIONS IN PLACE
[2019-07-30 11:35] VITALS: BP 125/45
--- NOTE | 2019-07-30 15:19 | NUR ---
PT DISCHARGING TODAY TO HOME WITH [facility] FAXED DC ORDERS/SUMMARY SPOKE WITH ODELL IN INTAKE AND SHE RECEIVED ORDERS AND WILL NOTIFY PT TIME OF VISITS.
--- NOTE | 2019-08-03 10:42 | PLAN ---
[facility] [place] [address] REHAB UNIT PLAN OF CARE Name: TORRESDAVINTHI Bhakta Room #: 505-P [facility] IN M.R.#: [id number] Admission: 07/24/19 Attend Phys: Gonzalez Cheng MD Discharge: 07/30/19 Date of : 44 Report #: [id number] THIS REPORT FOR: //name// CC: Gonzalez Cheng [facility] unknown DATE OF SERVICE: 07/26/2019 PROGRESS NOTE AND OVERALL PLAN OF CARE SUBJECTIVE: The patient is seen back today in followup. She is in no distress. Temperature 36.6, pulse 98, respirations 16, blood pressure 124/44. The patient is pleasant. No focal calf swelling. Upper and lower body strength is at least a grade 4-/5. Transfers are standby assistance with gait contact guard 150 feet with a standard cane. She started working on some stairs. Lower body dressing is min assist. Speech Therapy to assess regarding swallowing issues. She has been on a mechanical soft diet. ASSESSMENT: 1. Pulmonary debilitation. 2. Medical complexity with generalized debilitation. 3. Acute on chronic hypoxic and hypercapnic respiratory failure. 4. Acute on chronic mild diastolic heart failure. 5. Healthcare-associated pneumonia. 6. Acute blood loss anemia with melena. History of arteriovenous malformations. Esophagogastroduodenoscopy without obvious source. 7. Right upper extremity skin tear with multiple ecchymoses. 8. Prior syncopal episode, orthostatic blood pressure was benign, followed by Cardiology with plan for 2 weeks monitor at discharge. 9. Coronary artery disease. 10. History of bradycardia. 11. History of paroxysmal atrial fibrillation. 12. History of restless leg syndrome. 13. Anxiety and depression. 14. Tobacco dependence. PLAN: The overall plan of care is based on the preadmission screen, post-admission physician evaluation and information garnered from therapy assessments. 1. Estimated length of stay is probably at least 7-10 days. 2. Medical prognosis is reasonably good. 3. Anticipated interventions includes the interdisciplinary acute inpatient rehabilitation program. 4. Anticipated functional outcomes would be for the patient to become modified independent with transfers, mobility and ADLs and to improve as far as overall swallowing, so that she can return back to the home setting. [address] [address] REHAB UNIT PLAN OF CARE Name: VICENTE TORRES Room #: 505-P [facility] IN .R.#: [id number] Admission: 07/24/19 Attend Phys: Gonzalez Cheng MD Discharge: 07/30/19 Date of : 44 Report #: [id number] 5. Discharge destination would be back where she lives at home alone in an apartment. 6. Expected therapy by discipline includes PT, OT and speech 1 hour per day each five days a week throughout the duration of the acute inpatient rehabilitation stay. <ELECTRONICALLY SIGNED> By: Gonzalez Cheng MD 08/03/19 1042 [id number] [id number] Gonzalez Cheng MD /mae
--- NOTE | 2019-08-03 10:42 | H ---
[facility] [place] [address] HISTORY AND PHYSICAL Name: VICENTE TORRES Room #: 505-P [facility] IN M.R.#: [id number] Admission: 07/24/19 Attend Phys: Gonzalez Cheng MD Discharge: 07/30/19 Date of : 44 Report #: [id number] THIS REPORT FOR: cc: TD - Family physician unknown TD - Family physician unknown Gonzalez Cheng MD ~ CC: Gonzalez APPIAH unknown DATE OF SERVICE: 07/24/2019 HISTORY AND PHYSICAL AND POSTADMISSION PHYSICIAN EVALUATION HISTORY OF PRESENT ILLNESS: The patient is a 79-year-old white female who was originally on the acute inpatient rehab puga with acute on chronic hypoxic hypercapnic respiratory failure, recurrent syncope, bradycardia, paroxysmal atrial fibrillation. Please see the prior history and physical and discharge summary. The patient was progressing in therapies, but on 07/14/2019, developed increased shortness of breath prompting rapid response. Stat chest x-ray, ABGs, steroids. She was noted to be in respiratory distress, poor air movement, was placed on nonrebreather mask, critical ABGs, transferred down to Coronary Care Unit with Pulmonary consultation. Hemoglobin had dropped to 6.2 and the patient received 2 units of packed red blood cells. She was given Lasix IV between units. On the acute care service, she was followed by the Gastroenterology Service. EGD showed no obvious source. Concern for upper GI bleed. She has a history of AVM. She is being monitored for further clinical signs of gastrointestinal blood loss. She is okay to start back on Plavix and Eliquis if needed. Recommendations were if bleeding persists, recommend a colonoscopy plus or minus push enteroscopy. If she remained stable that could be done as an outpatient. The patient continued to be followed by Pulmonary Medicine Service. She was able to progress to needing 4 liters nasal cannula. Her baseline is around 4-5 units. She is being monitored regarding her renal insufficiency. She is noted to have pulmonary debilitation and generalized weakness and has now been readmitted for acute in-hospital inpatient rehabilitation. PAST MEDICAL HISTORY: Significant for COPD, on nasal prong O2, had been at 3-4 liters at home. History of peripheral vascular disease, CHF, AFib, restless leg syndrome, GERD, anxiety, and depression. PAST SURGICAL HISTORY: She has had multiple surgeries including bladder sling, appendectomy, hysterectomy, cystocele and rectocele, lumbar diskectomy x 2, stent placement, left common iliac, left subclavian, celiac trunk, bilateral cataracts, bowel resection. MEDICATIONS: Please see the full medication listing. [address] [address] HISTORY AND PHYSICAL Name: VICENTE TORRES Room #: 505-P [facility] IN M..#: [id number] Admission: 07/24/19 Attend Phys: Gonzalez Chneg MD Discharge: 07/30/19 Date of : 44 Report #: [id number] ALLERGIES: Multiple as noted. SOCIAL HISTORY: The patient has been living at home alone in an apartment. No stairs. Did not utilize an assistive device, was independent with ADLs and has help from family with IADLs. REVIEW OF SYSTEMS: Did not offer any complaints of chest pain, shortness of breath or abdominal discomfort. PHYSICAL EXAMINATION: GENERAL: A 79-year-old white female seen earlier, was in no distress, was sleepy, but responsive. VITAL SIGNS: Temperature 36.6, pulse 85, respirations 14, blood pressure 111/62 on 4 liters nasal cannula. HEENT: Facies appeared symmetric. CHEST: Some decreased diffuse breath sounds throughout. CARDIOVASCULAR: Sounded regular rate and rhythm. ABDOMEN: Bowel sounds positive, nontender. GENITOURINARY AND RECTAL: Deferred. EXTREMITIES: Functional range of motion of both upper and lower extremities. Tone appeared to be intact. No clubbing, cyanosis, or edema. Strength is probably a grade 4-/5. She has been needing assistance with basic mobility skills. Prior to rehabilitation has been min assist to standby coming to stand and has been min assist to try to ambulate a short distance. She was using a avitia railing. ASSESSMENT: A 79-year-old white female with the following problem list: 1. Pulmonary debilitation. 2. Medical complexity with generalized debilitation. 3. Acute on chronic hypoxic and hypercapnic respiratory failure. 4. Acute on chronic mild diastolic heart failure. 5. Healthcare-associated pneumonia. 6. Acute blood loss anemia with melena, history of arteriovenous malformations, EGD without obvious source. 7. Right upper extremity skin tear, multiple ecchymoses. 8. Prior syncopal episode, orthostatic blood pressure was benign, followed by Cardiology with plan for a 2-week monitor at discharge. 9. Coronary artery disease. 10. History of bradycardia. 11. History of paroxysmal atrial fibrillation. 12. History of restless legs syndrome. 13. Anxiety and depression. 14. Tobacco dependence. PLAN: The patient has been admitted for acute in-hospital inpatient [facility] [address] [place] [address] HISTORY AND PHYSICAL Name: VICENTE TORRES Room #: 505-P [facility] IN M.R.#: [id number] Admission: 07/24/19 Attend Phys: Gonzalez Cheng MD Discharge: 07/30/19 Date of : 44 Report #: [id number] rehabilitation. From a postadmission physician evaluation perspective, there are no relevant changes since the preadmission screening. Please see the above review of prior and current medical and functional conditions and comorbidities. Please see the patient's previous and current functional status. There is a risk of complications. The patient has multiple medical comorbidities as noted above. Initial plan of care involves the interdisciplinary acute inpatient rehabilitation program. Measurable functional goals would be for the patient to become modified independent with transfers, mobility, ADLs, so that she can hopefully return back to her prior living situation. PROGNOSIS: Reasonably good. ESTIMATED LENGTH OF STAY: Probably at least 7-10 days. Potential barriers would include the multiple medical comorbidities and decreased functional status. The patient meets diagnostic criteria for an acute in-hospital inpatient rehabilitation stay. The patient meets the medical necessity criteria and we will have the multiple consultants continue to follow. She does have the tolerance for therapies and has appropriate discharge goals back to the home setting. <ELECTRONICALLY SIGNED> By: Gonzalez Cheng MD 08/03/19 1042 1038 1131 Gonzalez Cheng MD /nt
== END 2019-07-30 12:03 | disposition home health service (06) | DRG 947 ==
PROVIDERS: Nurse Practitioner; ADMIT Physical Medicine & Rehabilitation; ATTEND Physical Medicine & Rehabilitation
PROC: 5A09357 Assistance with Respiratory Ventilation, Less than 24 Consecutive Hours, Continuous Positive Airway Pressure (ICD-10-PCS; principal; 2019-07-24)
PROC: 5A09357 Assistance with Respiratory Ventilation, Less than 24 Consecutive Hours, Continuous Positive Airway Pressure (ICD-10-PCS; 2019-07-25)
PROC: 5A09357 Assistance with Respiratory Ventilation, Less than 24 Consecutive Hours, Continuous Positive Airway Pressure (ICD-10-PCS; 2019-07-26)
PROC: 5A09357 Assistance with Respiratory Ventilation, Less than 24 Consecutive Hours, Continuous Positive Airway Pressure (ICD-10-PCS; 2019-07-27)
PROC: 5A09357 Assistance with Respiratory Ventilation, Less than 24 Consecutive Hours, Continuous Positive Airway Pressure (ICD-10-PCS; 2019-07-28)
DX: R53.81 Other malaise (principal); J96.21 Acute and chronic respiratory failure with hypoxia; I50.33 Acute on chronic diastolic (congestive) heart failure; J18.9 Pneumonia, unspecified organism; J96.22 Acute and chronic respiratory failure with hypercapnia; D62 Acute posthemorrhagic anemia; N39.0 Urinary tract infection, site not specified; J44.0 Chronic obstructive pulmonary disease with (acute) lower respiratory infection; I25.10 Atherosclerotic heart disease of native coronary artery without angina pectoris; F32.9 Major depressive disorder, single episode, unspecified; F41.9 Anxiety disorder, unspecified; G25.81 Restless legs syndrome; I48.0 Paroxysmal atrial fibrillation; F17.210 Nicotine dependence, cigarettes, uncomplicated; R58 Hemorrhage, not elsewhere classified; E87.5 Hyperkalemia; I73.9 Peripheral vascular disease, unspecified; Z20.828 Contact with and (suspected) exposure to other viral communicable diseases; Z88.6 Allergy status to analgesic agent; Z88.2 Allergy status to sulfonamides; Z88.8 Allergy status to other drugs, medicaments and biological substances
CPT/HCPCS: 10112

== ENCOUNTER → 2019-08-02 | Outpatient (CLI) | payer OTHER, BC ==
[~2019-08-02] MED LIST changes: +KLOR-CON M2020 MEQ PO; +POTASSIUM CITR15 MEQ PO
--- NOTE | 2019-08-05 21:35 | SLE ---
[facility] [place] [address] POLYSOMNOGRAPHY STUDY Name: VICENTE TORRES Yony Room #: [facility]#: [id number] Admission: 08/02/19 Attend Phys: Chavo Marquez MD Discharge: Date of : 44 Report #: [id number] THIS REPORT FOR: //name// CC: FAM unknown Chavo Marquez MD DATE OF SERVICE: 08/02/2019 SLEEP STUDY ATTENDING PHYSICIAN: Dr. Chavo Marquez. The patient is a 79-year-old who weighs 111 pounds with a BMI of 19.7. The patient's Mineral score was 6. The patient underwent split night study performed at [facility]. During the night study, the patient spent 482 minutes in bed and slept for 395 minutes with a sleep efficiency of 82%. Sleep latency was 36 minutes with a REM latency of 121 minutes. Sleep architecture showed normal stage 1 sleep, increased stage 2 sleep, absent slow wave and normal REM sleep. During the initial diagnostic portion of the study, the patient was noted to have 4 apneas, 3 obstructive and 1 central and 49 hypopneas. The patient's AHI was 8.1 per hour with a REM AHI of 12.3 per hour and a supine AHI of 7.1 per hour. EKG monitoring revealed an average heart rate of 68 beats per minute. No sustained arrhythmias observed.Frequent PAC's seen. No significant PLM seen. Nocturnal oximetry study revealed an average oxygen saturation of 85% with a lowest of 69%. 362 minutes were spent in oxygen saturation between 80% and 89%. The patient met the criteria for CPAP initiation. It was started at 5 cm water and titrated up to 8 cm water. At the final pressure, the patient slept for 132 minutes including 33 minutes of supine REM sleep. The patient's AHI was reduced to 3.6 per hour. Oxygen saturations remained above 88% with a lowest of 83%. IMPRESSION: 1. Mild obstructive sleep apnea at an AHI of 8.1 per hour. 2. Sustained pattern of nocturnal hypoxia secondary to combination of sleep apnea and hypoventilation. Hypoxia was worse during REM sleep. 3. No clinically significant periodic limb movements. [facility] [address] [place] [address] POLYSOMNOGRAPHY STUDY Name: VICENTE TORRES Room #: [facility]#: [id number] Admission: 08/02/19 Attend Phys: Chavo Marquez MD Discharge: Date of : 42 Report #: [id number] RECOMMENDATIONS: 1. CPAP at 8 cm water should be used on a nightly basis. Patient would benefit from all night oximetry study at the current pressure to assess the need of supplemental oxygen. 2. Follow up in 4-6 weeks to assess compliance with CPAP and to document clinical improvement. 3. Avoid STOCK CHASER depressants. 4. Cautioned regarding driving until symptoms of sleep apnea resolve with the use of CPAP. <ELECTRONICALLY SIGNED> By: Antwon Fitzpatrick MD 08/05/19 2135 1859 [id number] Antwon Fitzpatrick MD /nt
== END ==
LOC: SLEEPLAB 20:34
PROVIDERS: ATTEND Pediatrics
DX: G47.33 Obstructive sleep apnea (adult) (pediatric) (principal)

== ENCOUNTER → 2019-10-05 | Outpatient (CLI) | payer OTHER, BC ==
[~2019-10-05] MED LIST changes: +CEFUROXIME500 MG PO; +MELATONIN5 M1 PO; +PREDNISONE 20 M20 M1 PO
== END ==
LOC: SJCVCIMAG 07:33
PROVIDERS: ATTEND Nuclear Medicine Nuclear Cardiology
DX: I65.23 Occlusion and stenosis of bilateral carotid arteries (principal); I70.8 Atherosclerosis of other arteries; M79.604 Pain in right leg; Z95.820 Peripheral vascular angioplasty status with implants and grafts; I44.7 Left bundle-branch block, unspecified; I11.9 Hypertensive heart disease without heart failure; R94.31 Abnormal electrocardiogram [ECG] [EKG]; I25.10 Atherosclerotic heart disease of native coronary artery without angina pectoris; I48.0 Paroxysmal atrial fibrillation; E78.00 Pure hypercholesterolemia, unspecified; K55.1 Chronic vascular disorders of intestine; J44.1 Chronic obstructive pulmonary disease with (acute) exacerbation; K21.9 Gastro-esophageal reflux disease without esophagitis; F17.210 Nicotine dependence, cigarettes, uncomplicated; Z86.73 Personal history of transient ischemic attack (TIA), and cerebral infarction without residual deficits; Z79.899 Other long term (current) drug therapy

== ENCOUNTER 2019-10-08 10:43 | Inpatient (IN) | payer OTHER, BC ==
[~2019-10-08] VITALS: Ht 160 cm; Wt 52.2 kg
[~2019-10-08 10:43] MED LIST changes: -CEFUROXIME500 MG PO; -MELATONIN5 M1 PO; -PREDNISONE 20 M20 M1 PO
[2019-10-08 10:44] VITALS: BP 144/64
[2019-10-08 12:41] LABS: ABSOLUTE NEUTROPHILS 7.5 thou/uL (1.4-8.2); BASOPHILS 0.3 % (0.0-2.0); EOSINOPHILS 2.7 % (0.0-3.0); HEMATOCRIT 34.6 % (37.0-47.0); HEMOGLOBIN 11.9 gm/dL (12.0-15.0); LYMPHOCYTES 10.5 % (24.0-44.0); MCH 32.8 pg (26.0-34.0); MCHC 34.3 g/dL (28.0-37.0); MCV 95.7 fL (80.0-100.0); MONOCYTES 3.2 % (1.0-8.0); PLATELET COUNT 218 thou/uL (150-400); POLYS 83.3 % (36.0-66.0); RBC 3.62 mil/uL (4.20-5.00); RDW 14.5 % (10.5-14.5)
[2019-10-08 13:08] LABS: BUN 24 mg/dL (7-18); CALCIUM 10.7 mg/dL (8.5-10.1); CHLORIDE 95 mmol/L (98-107); GLUCOSE 144 mg/dL (74-106); POTASSIUM 4.8 mmol/L (3.5-5.1); SODIUM 137 mmol/L (136-145); TROPONIN-I <0.06 ng/mL (<0.06)
[2019-10-08 13:17] LABS: CO2 > 45 mmol/L (21-32)
[2019-10-08 14:07] LABS: BE(vivo) 19.4 mmol/L (-2 to +3); HCO3 48.5 mmol/L (22.0-26.0); PO2 66.4 mmHg (80.0-100.0); pH 7.392 (7.360-7.450); sO2 91.8 % (92.0-98.0)
[2019-10-08 14:50] LABS: PCO2 81.6 mmHg (35.0-45.0)
[2019-10-08 17:28] VITALS: BP 171/54
[2019-10-08 17:44] VITALS: BP 152/51
--- NOTE | 2019-10-08 17:49 | NUR ---
PT DAUGHTER (BHAVYA HAND) PLEASE CALL WITH MORE INFORMATION. [phone]
[2019-10-08 18:08] VITALS: BP 135/62
--- NOTE | 2019-10-08 18:34 | NUR ---
PATIENT ADMIT TO UNIT AT 1805. A/O X4. ON 4L/NC. NO SOB NOTED. DENIES PAIN. WILL KEEP MONITOR.
[2019-10-08 19:35] VITALS: BP 142/47
--- NOTE | 2019-10-08 20:15 | NUR ---
1900 ASSUMED CARE OF PT AFTER REPORT. 2014 BASELINE ASSESSMENT COMPLETED, PT ON 4L O2 NC RESP UNLABORED WITH WHEEZES THROUGHOUT, SEE ASSESSMENT FOR MORE DETAIL
[2019-10-09 00:18] VITALS: BP 138/30
[2019-10-09 04:46] VITALS: BP 128/53
[2019-10-09 08:46] VITALS: BP 114/40
[2019-10-09 11:40] VITALS: BP 108/36
[2019-10-09 15:55] VITALS: BP 118/39
[2019-10-09 18:30] VITALS: BP 150/67
--- NOTE | 2019-10-09 19:16 | NUR ---
ASSUMED PATIENT CARE AT 0700. A/O X4. TOLERATED 0N 4L/NC. SOB WITH EXERTION. DENIES PIEVON. UP WITH STANDBY ASSISTED TO BSC. TRANSFERED PATIENT TO [facility].
--- NOTE | 2019-10-09 19:24 | NUR ---
PT ARRIVED ON UNIT TO ROOM 434. PT WAS ADMITTED TO HOSPITAL FOR INSTAGE COPD. ALERT XS 4 IV RIGHT FOREARM. [address]. CAME FROM HOME LIVES ALONE. DRIVES AND IS STILL ACTIVE. BUT DESATS EASILY. PT MOVED FROM TELE TO MED SURGE. PATIENT'S V.S 97.7 18 76 150/67 O2 SAT 96% 4L/NC PT STATES NO PAIN.
--- NOTE | 2019-10-10 02:07 | NUR ---
RECIEVED CARE OF THIS PATIENT AT 1900. PATIENT ALERT AND ORIENTED X4 BUT HAS PERIODS OF CONFUISION AND FORGETFULLNESS. PATIENT UP WITH SBA BECAUSE OF PREVIOUS FALL AT HOME. HAS O2 AT 4L/NC. ACCUCHECK WAS 190, RECIEVED 3 UNITS OF LISPRO INSULIN. EDUCATED PATIENT THE REASON FOR THE ACCUCHECKS AND THE INSULIN. DENIES PAIN. SLEPT MOST OF SHIFT.
[2019-10-10 07:00] VITALS: BP 142/47
--- NOTE | 2019-10-10 10:48 | NUR ---
Assumed care of pt at 0700. Pt a&ox4. Breathing treatments q4h. Denies pain. SBA to bedside commode. Pt states she wants to go home. Fall precautions in place. Will continue to monitor.
[2019-10-10 14:03] VITALS: BP 122/45
--- NOTE | 2019-10-10 17:21 | NUR ---
Pt transfered from 4s to 460 at 1400 in stbale condition.Piv went bad,iv team paged and new one placed. No verbal c/o at present.Will continue to monitor.
[2019-10-10 20:49] VITALS: BP 153/61
--- NOTE | 2019-10-11 03:37 | NUR ---
pain controlled this shift. patient needs minimum assistance with adl, bed mobility, transfer and toileting. patient on 6 L of oxygen no soa or distress needed this shift. patient in bed asleep at this time breathing regular and unlaboured.
[2019-10-11 06:01] LABS: HEMATOCRIT 30.7 % (37.0-47.0); HEMOGLOBIN 10.3 gm/dL (12.0-15.0); MCH 32.4 pg (26.0-34.0); MCHC 33.4 g/dL (28.0-37.0); RBC 3.16 mil/uL (4.20-5.00); RDW 14.4 % (10.5-14.5); WBC 13.9 thou/uL (4.0-11.0)
[2019-10-11 06:32] LABS: CALCIUM 9.8 mg/dL (8.5-10.1); CREATININE 1.1 mg/dL (0.6-1.0); MAGNESIUM 1.8 mg/dL (1.8-2.4); POTASSIUM 3.9 mmol/L (3.5-5.1)
--- NOTE | 2019-10-11 07:53 | EKG ---
[facility] [place] [address] ELECTROCARDIOGRAM REPORT Name: TJ TORRESGIOVANI Bhakta Room #: 460-P ADM IN M.R.#: [id number] Admission: 10/08/19 Attend Phys: Raymundo Lyon MD Discharge: Date of : 44 Report #: [id number] THIS REPORT FOR: cc: TD - No family physician/PCP TD - No family physician/PCP Kristian Mandujano MD [facility] THIS REPORT FOR: //name// [facility] ED Test Date: 2019-10-08 Test Time: 11:31:55 Pat Name: VICENTE TORRES Department: Room: [facility] Gender: F [employer] Glass Blower: KF : 1940 Requested By: John Negro Order Number: [id number] MD: Kristian Mandujano Measurements Intervals Essie Rate: 68 P: 82 ME: 185 QRS: 14 QRSD: 111 T: 76 QT: 531 QTc: 565 Interpretive Statements Sinus rhythm Atrial premature complex Incomplete left bundle branch block Compared to ECG 07/24/2019 14:25:27 Atrial premature complex(es) now present Electronically Signed On 10-11-2019 7:53:20 CDT by Kristian Mandujano [email or web address] <ELECTRONICALLY SIGNED> By: Kristian Mandujano MD, [facility] 10/11/19 0753 1131 1131 Kristian Mandujano MD, [facility] /EPI
[2019-10-11 08:05] VITALS: BP 129/76
[2019-10-11 08:36] LABS: BE(vivo) 11.3 mmol/L (-2 to +3); HCO3 36.7 mmol/L (22.0-26.0); PCO2 52.5 mmHg (35.0-45.0); PO2 61.4 mmHg (80.0-100.0); pH 7.462 (7.360-7.450); sO2 92.3 % (92.0-98.0)
--- NOTE | 2019-10-11 10:32 | NUR ---
ORDERS RECEIVED FOR EVAL AND TREAT. Pt HAD JUST COMPLETED O.T. EVAL AND WAS INDEPENDENT. Pt STATES SHE IS NOT HAVING ANY PROBLEMS WITH HER MOBILITY AND IS DECLINING A FORMAL P.T. EVAL. DISCUSSED WITH O.T. AND THEY FEEL Pt IS INDEPENDENT WITH MOBILITY.
[2019-10-11 15:19] VITALS: BP 148/59
[2019-10-11 19:45] VITALS: BP 160/60
--- NOTE | 2019-10-11 20:24 | NUR ---
Assumed patient care at 0715. Vital signs stable, LS coarse and diminished. Patient is on 4 Liters Oxygen per nc, alert and oriented x's 4, up to bathroom by self. Patient walked with stand-by assist in hallway today, then walked without assist later in the shift. IV in Left Forearm is Saline Locked. Patient is on Accuchecks AC and HS; she has refused all Insulin support. Highest blood sugar was 218 at 1116 (she had just had a coke). Report given to on-coming nurse.
--- NOTE | 2019-10-12 04:36 | NUR ---
PATIENT REQUESTED SLEEP PILL, ENVIRONMENTAL ANALYST CALLED NEW ORDER OF MELATONIN GIVEN. PATIENT DENIED PAIN OR DISCOMFORT. PATIENT AMBULATES IN THE UNIT WITH STEADY GAITS. PATIENT ON 4L OXYGEN NO SOA OR DISTRESS NOTED THIS SHIFT. PATIENT CALM AND COOPERATIVE WITH CARE AND MEDS. PATIENT IN BED ASLEEP AT THIS TIME BREATHING REGULAR AND UNLABOURED.
[2019-10-12 07:30] VITALS: BP 154/59
--- NOTE | 2019-10-12 09:57 | NUR ---
PT ADMITTED RELATED TO COPD EXAC, R/O COVID. CM REVIEWED CHART AND SPOKE WITH CARE TEAM. CM MET WITH PT OVER THE PHONE YESTERDAY. PT INDICATED SHE LIVES ALONE IN GROUND LEVEL APT WITH NO STEPS. 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 PT INDICATED SHE HAS O2 AT 4L BASELINE THROUGH [facility] AND A CPAP. PT INDICATED THAT SHE HAD BEEN ON SERVICE WITH [facility] NOT TOO LONG AGO. PT'S PCP IS DR. CANDY WHEELER. PT INDICATED SHE ANTICIPATES RETURNING HOME ONCE MEDICALLY STABLE. CM TO FOLLOW INDICATED WITH DC PLANNING.
--- NOTE | 2019-10-12 13:59 | NUR ---
ATTEMPTED TO EVAL Pt YESTERDAY AND TODAY. Pt REFUSES STATING THAT SHE IS GETTING AROUND JUST FINE AND SAFELY. PER O.T. DOCUMENTATION, Pt DEMONSTRATES SAFE AND INDEPENDENT MOBILITY. WILL D/C P.T. AT THIS TIME.
[2019-10-12] MEDS ORDERED: MELATONIN5 M1 PO ×2 (14:08)
[2019-10-12] MEDS ORDERED: CEFUROXIME500 MG PO ×2 (14:08)
[2019-10-12] MEDS ORDERED: PREDNISONE 20 M20 M1 PO ×4 (14:08→14:14)
[2019-10-12 14:29] VITALS: BP 154/59
[2019-10-12 14:35] VITALS: BP 154/59
--- NOTE | 2019-10-12 14:57 | NUR ---
Assumed pt care this am, on 4 lites opf O2 via NC. SOB is noted when amlbulating but able to recover afte she rests. IV was infiltrated, refused heparin , insulin and reinsertion of IV since pt is being DC instruction given, medications were sent to the pharmacy, IV already removed. POC followed with no signs or verbalizations of distress have been noted. Awaiting for daughter to pick the pt up.
--- NOTE | 2019-10-12 15:46 | NUR ---
CARE TEAM INDICATED THAT PT IS MEDICALLY STABLE TO DISCHARGE HOME THIS DAY. PT IS TO HAVE [facility]. REFERRAL AND ORDERS SENT. PT INDICATED HER DTR IS TO PROVIDE TRANSPORT HOME THIS DAY SHE WILL BE BRINGING HER PORTABLE O2 FOR TRASNPORT. NO OTHER CM INTERVENTION INDICATED. CASE CLOSED.
--- NOTE | 2019-10-12 15:58 | NUR ---
PT WAS ON SERVICE WITH [facility] IN THE PAST [facility]ED [facility]FERRAL TO [facility] SPOKE WITH INTAKE AND THEY CAN ACCEPT FOR HH. FAXED DC ORDERS/SUMMARY RECEIVED CONFIRMATION AND THEY WILL NOTIFY PT TO SET UP VISITS.
== END 2019-10-12 16:02 | disposition home health service (06) | DRG 871 ==
LOC: ER 10:43 → 4W 17:14 → EROBS 17:14 → 3W 18:06 → 4S 10-09 18:34 → 4W 10-10 13:54
PROVIDERS: Emergency Medicine; ADMIT Internal Medicine; ATTEND Internal Medicine
DX: A41.9 Sepsis, unspecified organism (principal); G92 Toxic encephalopathy; I50.33 Acute on chronic diastolic (congestive) heart failure; J96.21 Acute and chronic respiratory failure with hypoxia; J18.9 Pneumonia, unspecified organism; J96.22 Acute and chronic respiratory failure with hypercapnia; I48.21 Permanent atrial fibrillation; I48.0 Paroxysmal atrial fibrillation; F41.9 Anxiety disorder, unspecified; E78.5 Hyperlipidemia, unspecified; F32.9 Major depressive disorder, single episode, unspecified; G25.81 Restless legs syndrome; D63.8 Anemia in other chronic diseases classified elsewhere; J44.9 Chronic obstructive pulmonary disease, unspecified; R53.81 Other malaise; I25.10 Atherosclerotic heart disease of native coronary artery without angina pectoris; F17.210 Nicotine dependence, cigarettes, uncomplicated; Z96.1 Presence of intraocular lens; K21.9 Gastro-esophageal reflux disease without esophagitis; M62.84 Sarcopenia; R32 Unspecified urinary incontinence; I11.0 Hypertensive heart disease with heart failure; I73.9 Peripheral vascular disease, unspecified; Z66 Do not resuscitate; Z20.828 Contact with and (suspected) exposure to other viral communicable diseases; Z60.2 Problems related to living alone; Z79.01 Long term (current) use of anticoagulants; Z79.899 Other long term (current) drug therapy; Z90.49 Acquired absence of other specified parts of digestive tract; Z90.710 Acquired absence of both cervix and uterus; Z98.42 Cataract extraction status, left eye; Z98.41 Cataract extraction status, right eye; Z88.1 Allergy status to other antibiotic agents; Z88.5 Allergy status to narcotic agent; Z88.2 Allergy status to sulfonamides; Z88.8 Allergy status to other drugs, medicaments and biological substances; Z91.09 Other allergy status, other than to drugs and biological substances
CPT/HCPCS: 10040; 10045; 10100; 10879

== ENCOUNTER → 2019-11-23 | Outpatient (CLI) | payer OTHER, BC ==
[~2019-11-23] MED LIST changes: +CEFUROXIME500 MG PO; +MELATONIN5 M1 PO; +PREDNISONE 20 M20 M1 PO
== END ==
LOC: RAD 10:08
PROVIDERS: ATTEND Internal Medicine Pulmonary Disease
DX: R00.2 Palpitations (principal)

== ENCOUNTER → 2020-04-24 | Outpatient (CLI) | payer OTHER, BC | LOC: SJCVCIMAG 09:25 | PROVIDERS: ATTEND Internal Medicine Cardiovascular Disease | DX: I65.23 Occlusion and stenosis of bilateral carotid arteries (principal); I70.1 Atherosclerosis of renal artery; I70.8 Atherosclerosis of other arteries; I49.3 Ventricular premature depolarization; I44.7 Left bundle-branch block, unspecified; I25.10 Atherosclerotic heart disease of native coronary artery without angina pectoris; I10 Essential (primary) hypertension; K55.1 Chronic vascular disorders of intestine; E78.00 Pure hypercholesterolemia, unspecified; J44.9 Chronic obstructive pulmonary disease, unspecified; K21.9 Gastro-esophageal reflux disease without esophagitis; G47.33 Obstructive sleep apnea (adult) (pediatric); F17.210 Nicotine dependence, cigarettes, uncomplicated; Z95.828 Presence of other vascular implants and grafts; Z90.49 Acquired absence of other specified parts of digestive tract; Z90.710 Acquired absence of both cervix and uterus; Z98.890 Other specified postprocedural states; Z88.8 Allergy status to other drugs, medicaments and biological substances; Z79.899 Other long term (current) drug therapy; Z86.73 Personal history of transient ischemic attack (TIA), and cerebral infarction without residual deficits; Z82.49 Family history of ischemic heart disease and other diseases of the circulatory system ==

== ENCOUNTER → 2020-05-17 | Outpatient (CLI) | payer OTHER ==
[2020-05-17 10:41] LABS: BE(vivo) 10.4 mmol/L (-2 to +3); HCO3 38.2 mmol/L (22.0-26.0); PO2 75.7 mmHg (80.0-100.0); pH 7.366 (7.360-7.450); sO2 94.2 % (92.0-98.0)
[2020-05-17 10:42] LABS: PCO2 68.3 mmHg (35.0-45.0)
== END ==
LOC: PUL 10:20
PROVIDERS: ATTEND Pediatrics
DX: J44.1 Chronic obstructive pulmonary disease with (acute) exacerbation (principal); J98.4 Other disorders of lung; R06.02 Shortness of breath

== ENCOUNTER → 2020-05-26 | Outpatient (CLI) | payer OTHER, BC | LOC: LAB 11:44 | PROVIDERS: ATTEND Pediatrics | DX: Z01.812 Encounter for preprocedural laboratory examination (principal); Z20.822 Contact with and (suspected) exposure to COVID-19 ==

== ENCOUNTER → 2020-05-29 | Outpatient (CLI) | payer OTHER, BC ==
--- NOTE | 2020-06-02 07:11 | SLE ---
[facility] [place] [address] POLYSOMNOGRAPHY STUDY Name: VICENTE TORRES Room #: REG [facility]#: [id number] Admission: 05/29/20 Attend Phys: Antwon Fitzpatrick MD Discharge: Date of : 44 Report #: [id number] THIS REPORT FOR: cc: Donn Patel Kent DO Khan,Antwon Bush MD ~ DATE OF SERVICE: 05/29/2020 SLEEP STUDY ATTENDING PHYSICIAN: Dr. Chavo Marquez. The patient is a 80-year-old who weighs 136 pounds with a BMI of 24. The patient has a previous history of mild sleep apnea for which the patient has been on CPAP. The patient also has chronic hypoxic respiratory failure and has been on home oxygen at 4 liters on a 24-hour basis. Another CPAP titration study was requested by the patient's telephone order supervisor. This was done at [facility]. During the night study, the patient spent 445 minutes in bed and slept for 376 minutes with a sleep efficiency of 84%. Sleep latency was 22.8 minutes with a REM latency of 26 minutes, which was short. Sleep architecture showed a normal stage 1 sleep, increased N2 sleep, normal N3 sleep and normal REM sleep. EKG monitoring revealed an average heart rate of 70 beats per minute. There were frequent PVCs seen, but no sustained arrhythmias observed. No PLMs observed. The patient was started on CPAP initially at 5 cm water along with no oxygen. However, due to hypoxia, 1 liter of oxygen was added. During the night study, the patient continued to require increasing amount of supplemental oxygen and was finally titrated to her baseline 4 liters of oxygen. CPAP pressure was started at 5 cm water and titrated up to 13 cm water. At the final pressure, the patient slept for 169 minutes including 46.9 minutes of lateral and supine REM sleep. The patient's AHI was reduced to 2.8 per hour. Oxygen saturation remained above 88% while on 4 liters of oxygen along with the current CPAP pressure. The patient's hypoxic pattern was suggestive of hypoventilation. IMPRESSION: 1. Sleep apnea diagnosed by previous sleep study. 2. Nocturnal hypoxia secondary to combination of sleep apnea and hypoventilation. The patient may have underlying cardiac or pulmonary disease contributing to hypoxia. The patient required 4 liters of supplemental oxygen with the CPAP. [facility] [address] [place] [address] POLYSOMNOGRAPHY STUDY Name: VICENTE TORRES Room #: REG CL Matthias#: [id number] Admission: 05/29/20 Attend Phys: Antwon Fitzpatrick MD Discharge: Date of : 44 Report #: [id number] 3. No clinically significant periodic limb movements. RECOMMENDATIONS: 1. CPAP at 13 cm water along with 4 liters of supplemental oxygen should be used on a nightly basis. 2. Follow up in 4-6 weeks to assess compliance with CPAP and to document clinical improvement. 3. Avoid TELESCOPE REPAIRER depressants. 4. Cautioned regarding driving until symptoms of sleep apnea resolve with the use of CPAP. <ELECTRONICALLY SIGNED> By: Antwon Fitzpatrick MD 06/02/20 0711 24 32 Antwon Fitzpatrick MD /nt
== END ==
LOC: SLEEPLAB 15:21
PROVIDERS: ATTEND Internal Medicine Critical Care Medicine
DX: G47.30 Sleep apnea, unspecified (principal); G47.34 Idiopathic sleep related nonobstructive alveolar hypoventilation; G47.36 Sleep related hypoventilation in conditions classified elsewhere

== ENCOUNTER → 2020-07-05 | Outpatient (CLI) | payer OTHER, BC ==
[2020-07-05 13:41] LABS: BE(vivo) 10.5 mmol/L (-2 to +3); HCO3 35.3 mmol/L (22.0-26.0); PCO2 47.7 mmHg (35.0-45.0); PO2 87.9 mmHg (80.0-100.0); pH 7.487 (7.360-7.450); sO2 97.2 % (92.0-98.0)
== END ==
LOC: PUL 13:06
PROVIDERS: ATTEND Pediatrics
DX: J44.1 Chronic obstructive pulmonary disease with (acute) exacerbation (principal); R06.02 Shortness of breath

== ENCOUNTER 2020-08-11 07:49 | Inpatient (IN) | payer OTHER, BC ==
[~2020-08-11] VITALS: Ht 160 cm; Wt 66.3 kg
[2020-08-11 07:50] VITALS: BP 159/72
[2020-08-11 08:56] LABS: ABSOLUTE NEUTROPHILS 11.6 thou/uL (1.4-8.2); BASOPHILS 0.5 % (0.0-2.0); EOSINOPHILS 1.9 % (0.0-3.0); HEMOGLOBIN 11.8 gm/dL (12.0-15.0); LYMPHOCYTES 10.4 % (24.0-44.0); MCH 32.4 pg (26.0-34.0); MCHC 33.7 g/dL (28.0-37.0); MCV 96.3 fL (80.0-100.0); MONOCYTES 8.7 % (1.0-8.0); PLATELET COUNT 305 thou/uL (150-400); POLYS 78.5 % (36.0-66.0); RBC 3.64 mil/uL (4.20-5.00); WBC 14.7 thou/uL (4.0-11.0)
[2020-08-11 08:58] LABS: ANION GAP 0 mmol/L (7-16); BUN 27 mg/dL (7-18); CHLORIDE 93 mmol/L (98-107); CO2 37 mmol/L (21-32); CREATININE 0.9 mg/dL (0.6-1.0); GLUCOSE 102 mg/dL (74-106); POTASSIUM 4.4 mmol/L (3.5-5.1); SODIUM 130 mmol/L (136-145)
[2020-08-11 09:08] LABS: ALBUMIN 3.3 g/dL (3.4-5.0); DIRECT BILIRUBIN 0.1 mg/dL (<0.1-0.2); SGOT 19 U/L (15-37); SGPT 16 U/L (14-59); TOTAL BILIRUBIN 0.4 mg/dL (0.2-1.0); TOTAL PROTEIN 6.9 g/dL (6.4-8.2); TROPONIN-I <0.06 ng/mL (<0.06)
--- NOTE | 2020-08-11 09:11 | EKG ---
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 Publications: MAGED : 1940 Requested By: Esther Lorenzo Order Number: [id number] MD: Giuseppe Llamas Measurements Intervals Daniels Rate: 63 P: 79 MA: 215 QRS: 5 QRSD: 117 T: 99 QT: 490 QTc: 502 Interpretive Statements Sinus rhythm Borderline prolonged MA interval Probable left atrial enlargement Incomplete left bundle branch block LVH with secondary repolarization abnormality Prolonged QT interval Compared to ECG 10/08/2019 11:31:55 Left ventricular hypertrophy now present Early repolarization now present Prolonged QT interval now present Atrial premature complex(es) no longer present Electronically Signed On 08-11-2020 9:11:35 CDT by Giuseppe Llamas [email or web address] <ELECTRONICALLY SIGNED> By: Giuseppe Llamas MD, FACC 08/11/20910 0 0 Giuseppe Llamas MD, [facility] /EPI
--- NOTE | 2020-08-11 13:20 | NUR ---
REPORT GIVEN TO YOSEF MONTAGUE AT THIS TIME
[2020-08-11 14:01] VITALS: BP 156/43
--- NOTE | 2020-08-11 14:28 | NUR ---
TRIED TO CALL NURSE STEVENSON AT THIS TIME FOR REPORT. SHE DID NOT HAVE TIME TO TAKE REPORT. I TOLD GRAHAM I WOULD CALL BACK IN 5 MINUTES.
[2020-08-11 14:39] VITALS: BP 147/54
[2020-08-11 15:20] VITALS: BP 158/64
[2020-08-11 15:36] LABS: URINE BILIRUBIN NEGATIVE (Negative); URINE BLOOD NEGATIVE (Negative); URINE CLARITY CLEAR; URINE COLOR YELLOW; URINE GLUCOSE-RANDOM* TRACE (Negative); URINE KETONES NEGATIVE (Negative); URINE PROTEIN (DIPSTICK) NEGATIVE (Negative); URINE SPECIFIC GRAVITY 1.015 (1.005-1.035); URINE UROBILINOGEN 0.2 E.U./dl (0.2-1.0)
[2020-08-11 15:45] LABS: URINE LEUKOCYTES-REFLEX 2+ (Negative); URINE NITRITE-REFLEX POSITIVE (Negative)
[2020-08-11 15:49] LABS: CASTS None Seen /LPF (None Seen); SQUAMOUS 0-3 Few /LPF (0-3); URINE RBC 3-10 Few /HPF (NONE SEEN); URINE WBC-REFLEX 6-15 Few /HPF (0-5)
[2020-08-11 15:50] LABS: CRYSTALS None Seen /LPF (None Seen)
[2020-08-11] MEDS ORDERED: LEXAPRO 10 MG T10 M2 PO (18:15)
[2020-08-11] MEDS ORDERED: ABILIFY 2 MG2 M1 PO (18:16)
[2020-08-11] MEDS ORDERED: METOCLOPRAMIDE 55 M1 PO (18:17)
[2020-08-11] MEDS ORDERED: OXYBUTYNIN 5 MG5 M2 PO (18:18)
[2020-08-11] MEDS ORDERED: MELOXICAM7.5 MG PO (18:19)
[2020-08-11] MEDS ORDERED: SORINE 80 MG TA80 MG PO (18:19)
[2020-08-11] MEDS ORDERED: VASCEPA1 GM PO (18:20)
[2020-08-11] MEDS ORDERED: VITAMIN D31 ML PO (18:23)
[2020-08-11] MEDS ORDERED: VALSARTAN-HCTZ1 EAC1 PO (18:23)
[2020-08-11 20:22] VITALS: BP 145/45
[2020-08-11 23:00] VITALS: BP 137/47
--- NOTE | 2020-08-12 03:02 | NUR ---
SLEEPING AT TIMES. UP TO COMODE NEEDED WITH STANDBY ASSIST WITH STEADY GAIT. WORKING ON GOALS AND PLAN OF CARE FOR NOC. STATES IS BREATHING BETTER AND DOES NOT NEED A BREATHING TREATMENT AT THIS TIME. ENCOURAGED TO CALL IF NEEDING A BREATHING TREATMENT. DENIES COMPLAINTS OF PAIN. CONTINUE TO ASSES
[2020-08-12 04:11] LABS: CALCIUM 9.1 mg/dL (8.5-10.1); CREATININE 0.8 mg/dL (0.6-1.0); MAGNESIUM 1.4 mg/dL (1.8-2.4); POTASSIUM 3.9 mmol/L (3.5-5.1)
[2020-08-12 04:21] LABS: ABSOLUTE NEUTROPHILS 12.9 thou/uL (1.4-8.2); BASOPHILS 0.2 % (0.0-2.0); HEMATOCRIT 30.3 % (37.0-47.0); HEMOGLOBIN 10.3 gm/dL (12.0-15.0); LYMPHOCYTES 5.1 % (24.0-44.0); MCH 32.2 pg (26.0-34.0); MCHC 33.9 g/dL (28.0-37.0); MONOCYTES 1.2 % (1.0-8.0); PLATELET COUNT 264 thou/uL (150-400); POLYS 93.5 % (36.0-66.0); RBC 3.19 mil/uL (4.20-5.00); RDW 13.7 % (10.5-14.5); WBC 13.8 thou/uL (4.0-11.0)
[2020-08-12 04:45] VITALS: BP 155/65
[2020-08-12 07:20] VITALS: BP 146/75
[2020-08-12 11:05] VITALS: BP 152/60
[2020-08-12 15:05] VITALS: BP 111/43
--- NOTE | 2020-08-12 16:55 | NUR ---
ASSESSMENT CHARTED - MEDS PER MAR - NO CO'S OF NASUEA. GIVEN TYLENOL FOR CO'S OF HEADACHE WITH GOOD RELIEF. UP TO THE BSC - STBY ASSIST. LUDIVINA DIET AND FLUIDS. ACCUCHECKS CHARTED - COVERED PER SSI PRN. PT SOB WITH EXERTION- REQUESTED RESP TREATMENT THIS AFTERNOON. NO CO'S AT THE PRESENT TIME - STATES SHE IS COMFORTABLE.
[2020-08-12 19:23] VITALS: BP 122/41
[2020-08-13 04:10] VITALS: BP 155/58
[2020-08-13 10:07] VITALS: BP 158/75
[2020-08-13 15:17] VITALS: BP 154/60
--- NOTE | 2020-08-13 16:01 | NUR ---
ASSESSMENT CHARTED- MEDS PER MAR- NO CO'S OF NAUSEA - GIVEN TYLENOL FOR CO'S OF HEADACHE WITH RELIEF. LUDIVINA DIET AND FLUIDS. PT UP TO THE BSC HAD BM THIS SHIFT. ACCUCHECKS CHARTED - COVERED PER SSI PRN. BPT WITH COUGH LOOSENEING UNABLE TO COUGH ANYTHING UP STILL. NO CO'S AT THE PRESENT TIME. STATES SHE IS COMFORTABLE.
[2020-08-13 20:00] VITALS: BP 167/64
[2020-08-14 05:17] VITALS: BP 176/56
[2020-08-14 07:23] VITALS: BP 151/56
[2020-08-14 11:00] VITALS: BP 145/54
--- NOTE | 2020-08-14 14:58 | NUR ---
Met with patient who resides at home in independent home with all needs on one level. Patient reports her cousin lives with her. Patient admits with COPD exacerbation. Patient use home oxygen via [facility] patient usu at 4 liters at home. She has a cpap at home from [facility]. Patient uses walker at home for ambulation. PCP Dr Donn Patel. Patient worked with PT who discharged patient. [facility]. Patient interested in home health at [place]. [facility]erral to [facility]. casemgt following.
[2020-08-14 15:42] VITALS: BP 136/48
--- NOTE | 2020-08-14 17:43 | NUR ---
ASSUMED CARE SHIFT CHANGE. VSS. C/O HEADACHE MANAGED WITH TYLENOL. C/O SOB, RECOVERS WELL WITH REST. PT WORKED WITH PHYS THERAPY AND OT THIS SHIFT, LUDIVINA WELL. HOPEFUL FOR DC IN AM. DENIES NEEDS CURRENTLY, CONT POC, WILL PASS ON REPORT TO NOC RN.
[2020-08-14 20:00] VITALS: BP 138/42
[2020-08-15 04:00] VITALS: BP 155/46
--- NOTE | 2020-08-15 04:50 | NUR ---
SLEPT MOST OF SHIFT. UP TO COMODE WITH STEADY GAIT. DENIES COMPLAINTS OF PAIN. REMAINS WITH SOME SHORTNESS OF AIR WITH ACTIVITY BUT TOLERATES WELL. TOLERATED BIPAP FOR 2 HOURS TO NOC. WORKING ON GOALS AND PLAN OF CARE FOR NOC. PROGRESSING SLOWLY TOWARDS DISCHARGE GOALS. CONTINUE TO ASSES CLOSELY.
[2020-08-15 07:53] VITALS: BP 170/59
[2020-08-15] MEDS ORDERED: PREDNISONE 10 M10 MG PO (11:58)
[2020-08-15] MEDS ORDERED: CEFUROXIME500 MG PO (11:59)
[2020-08-15 13:02] VITALS: BP 170/59
--- NOTE | 2020-08-15 14:55 | NUR ---
DISCHARGE EDUCATION AND TEACHING DONE WITH PATIENT. NO QUESTIONS OR CONERNS AT TIME OF EDUCATION. IV & TELE DISCONTINUED.
--- NOTE | 2020-08-15 16:26 | NUR ---
Patient to dc home with care. She prefers [facility]. Faxed orders. Orders confirmed rec for start of care no further needs.
== END 2020-08-15 15:27 | disposition home health service (06) | DRG 189 ==
LOC: ER 07:49 → 2N 11:30 → EROBS 11:30 → 2N 15:06
PROVIDERS: Emergency Medicine; Nurse Practitioner; ADMIT Internal Medicine; ATTEND Internal Medicine
PROC: 5A09357 Assistance with Respiratory Ventilation, Less than 24 Consecutive Hours, Continuous Positive Airway Pressure (ICD-10-PCS; principal; 2020-08-12)
PROC: 5A09357 Assistance with Respiratory Ventilation, Less than 24 Consecutive Hours, Continuous Positive Airway Pressure (ICD-10-PCS; 2020-08-14)
DX: J96.21 Acute and chronic respiratory failure with hypoxia (principal); J44.1 Chronic obstructive pulmonary disease with (acute) exacerbation; I50.32 Chronic diastolic (congestive) heart failure; E87.0 Hyperosmolality and hypernatremia; E46 Unspecified protein-calorie malnutrition; J98.19 Other pulmonary collapse; R65.10 Systemic inflammatory response syndrome (SIRS) of non-infectious origin without acute organ dysfunction; F17.210 Nicotine dependence, cigarettes, uncomplicated; E78.5 Hyperlipidemia, unspecified; I25.10 Atherosclerotic heart disease of native coronary artery without angina pectoris; I73.9 Peripheral vascular disease, unspecified; J96.22 Acute and chronic respiratory failure with hypercapnia; I11.0 Hypertensive heart disease with heart failure; R53.81 Other malaise; K21.9 Gastro-esophageal reflux disease without esophagitis; N32.81 Overactive bladder; G25.81 Restless legs syndrome; D64.9 Anemia, unspecified; I48.0 Paroxysmal atrial fibrillation; F41.9 Anxiety disorder, unspecified; E87.5 Hyperkalemia; M19.90 Unspecified osteoarthritis, unspecified site; F32.9 Major depressive disorder, single episode, unspecified; Z96.1 Presence of intraocular lens; Z66 Do not resuscitate; Z90.49 Acquired absence of other specified parts of digestive tract; Z90.710 Acquired absence of both cervix and uterus; Z98.41 Cataract extraction status, right eye; Z98.42 Cataract extraction status, left eye; Z85.828 Personal history of other malignant neoplasm of skin; Z88.5 Allergy status to narcotic agent; Z88.2 Allergy status to sulfonamides; Z88.8 Allergy status to other drugs, medicaments and biological substances; Z79.01 Long term (current) use of anticoagulants; Z79.899 Other long term (current) drug therapy; Z68.25 Body mass index [BMI] 25.0-25.9, adult
CPT/HCPCS: 10081

== ENCOUNTER → 2020-08-28 | Outpatient (CLI) | payer OTHER, BC ==
[~2020-08-28] MED LIST changes: +ABILIFY 2 MG2 M1 PO; +LEXAPRO 10 MG T10 M2 PO; +MELOXICAM7.5 MG PO; +METOCLOPRAMIDE 55 M1 PO; +OXYBUTYNIN 5 MG5 M2 PO; +PREDNISONE 10 M10 MG PO; +SORINE 80 MG TA80 MG PO; +VITAMIN D31 ML PO
== END ==
LOC: RAD 12:47
PROVIDERS: ATTEND Pediatrics
DX: R06.02 Shortness of breath (principal)

== ENCOUNTER → 2020-11-14 | Outpatient (CLI) | payer OTHER, BC ==
[~2020-11-14] MED LIST changes: +FLONASE 0.05%50 MCG NASAL; +FUROSEMIDE 20 M20 MG PO; +KLOR-CON 1010 MEQ PO; +OXYGEN MISCELL
== END ==
LOC: SJCVCIMAG 07:56
PROVIDERS: ATTEND Internal Medicine Cardiovascular Disease
DX: R94.31 Abnormal electrocardiogram [ECG] [EKG] (principal); I44.7 Left bundle-branch block, unspecified; K55.1 Chronic vascular disorders of intestine; R19.7 Diarrhea, unspecified; I25.10 Atherosclerotic heart disease of native coronary artery without angina pectoris; E78.00 Pure hypercholesterolemia, unspecified; I10 Essential (primary) hypertension; I73.9 Peripheral vascular disease, unspecified; I48.91 Unspecified atrial fibrillation; J44.1 Chronic obstructive pulmonary disease with (acute) exacerbation; I77.9 Disorder of arteries and arterioles, unspecified; K21.9 Gastro-esophageal reflux disease without esophagitis; G47.33 Obstructive sleep apnea (adult) (pediatric); Z95.828 Presence of other vascular implants and grafts; Z86.73 Personal history of transient ischemic attack (TIA), and cerebral infarction without residual deficits; Z79.899 Other long term (current) drug therapy; Z87.891 Personal history of nicotine dependence; Z72.89 Other problems related to lifestyle; Z95.820 Peripheral vascular angioplasty status with implants and grafts

== ENCOUNTER 2020-11-16 06:22 | Inpatient (IN) | payer OTHER, BC ==
[~2020-11-16] VITALS: Ht 160 cm; Wt 66.2 kg
[~2020-11-16 06:22] MED LIST changes: -FLONASE 0.05%50 MCG NASAL; -FUROSEMIDE 20 M20 MG PO; -KLOR-CON 1010 MEQ PO; -OXYGEN MISCELL
[2020-11-16 07:32] VITALS: BP 115/38
[2020-11-16 07:32] LABS: HEMOGLOBIN 9.9 gm/dL (12.0-15.0); MCH 31.7 pg (26.0-34.0); MCHC 32.9 g/dL (28.0-37.0); MCV 96.4 fL (80.0-100.0); RBC 3.11 mil/uL (4.20-5.00); RDW 13.5 % (10.5-14.5)
[2020-11-16 07:40] LABS: CALCIUM 9.9 mg/dL (8.5-10.1); CREATININE 1.4 mg/dL (0.6-1.0); POTASSIUM 4.6 mmol/L (3.5-5.1)
[2020-11-16] MEDS ORDERED: VASCEPA1 GM PO (08:12)
[2020-11-16] MEDS ORDERED: FUROSEMIDE 20 M20 MG PO (08:12)
[2020-11-16] MEDS ORDERED: KLOR-CON 1010 MEQ PO (08:13)
[2020-11-16] MEDS ORDERED: FLONASE 0.05%50 MCG NASAL (08:16)
[2020-11-16] MEDS ORDERED: OXYGEN MISCELL (08:17)
[2020-11-16] MEDS ORDERED: PROAIR HFA8.5 GM INH (08:18)
[2020-11-16] MEDS ORDERED: ABILIFY 2 MG2 M1 PO (08:18)
--- NOTE | 2020-11-16 14:57 | CATHLAB ---
[facility] [address] INVASIVE PROCEDURE REPORT Name: VICENTE TORRES Room #: REG MERVAT Virgen.#: [id number] Admission: 11/16/20 Attend Phys: Gonzalez Wooten MD Discharge: Date of : 44 Report #: [id number] THIS REPORT FOR: cc: Donn Patel Kent DO Mancuso, Gerald M. MD [facility] ~ APPROVED REPORT Study performed: 11/16/2020 10:19:20 Patient Details Patient Status: Out-Patient Room #: The patient is a 80 year-old female Event Personnel , Yadiel Olmos RTR Eden Sorto Alison RT(R)() Monitor, Fredy Whiteside RN Neel Bryan Wind Energy Engineer Procedures Performed Left Heart Cath w/or w/o Coronaries [id number] [facility] Hemostasis w/ Mynx 43396 Initial Mod Sed Same Phys/QHP Gr5y [id number] 05493 Mod Sed Same Phys/QHP Ea 622105 Procedure Narrative The patient was brought electively to the Cardiac Catheterization Laboratory and was prepped and draped in a sterile manner. A SHEATH BRITE-TIP 6F X 11CM ([id number]) sheath was inserted into the RFA 6F. Coronary angiography was performed using coronary diagnostic catheters. The right coronary system was accessed and visualized with a JR4 catheter. The left coronary system was accessed and visualized with a JL4 catheter. The left ventricle was accessed and visualized with a PIGTAIL catheter. The patient tolerated the procedure well and there were no complications associated with the procedure. There was no hematoma. Intraoperative Conscious Sedation Versed 0.5 mg Fluoro Time: 23.72 minutes Dose: DAP 29736.30 cGycm2 Contrast Type and Amount: Visipaque 230 ml Hemodynamics The aortic pressure is 167/43 mmHg with a mean of 53 mmHg. The left [facility] [address] [place] [address] INVASIVE PROCEDURE REPORT Name: VICENTE TORRES Room #: REG Matthias#: [id number] Admission: 11/16/20 Attend Phys: Gonzalez Wooten, Discharge: Date of : 42 Report #: [id number] ventricular pressure is 175/7 mmHg with a mean of mmHg. The left ventricular end diastolic pressure is 20 mmHg. PCI Technique Lesion Percutaneous coronary intervention was performed on the Common iliac. PCI Technique Lesion 2 Percutaneous Coronary Intervention was performed on the Inferior Mesentaric. Conclusion #1 Normal left ventricular size and systolic function EF 60%. #2 left main widely patent mildly calcified giving rise to LAD and circumflex. #3 LAD with calcification but no occlusive disease. Smaller attenuated vessels distally. #4 circumflex OM nondominant with eccentric 30% regular proximal lesion #5 large dominant right coronary artery tortuous but no occlusive disease widely patent. Recommendations and plan: Continue aggressive risk factor modification no indication for coronary intervention. Peripheral intervention per Dr. Wooten. See his dictation. <ELECTRONICALLY SIGNED> By: Neel Pena MD, FACC 11/16/201456 56 56 Neel Pena MD, FACC /INF
--- NOTE | 2020-11-16 15:15 | NUR ---
PT NOT RECOVERING WELL AFTER HER PROCEDURE. LETHARGIC, UNSTABLE SITTING UP, ETC. DR RON NOTIFIED AND CAME TO BS TO EVAL. ORDER FOR FLUMAZENIL 0.2MG GIVEN AND CARRIED OUT AT 1315. PT WAS NOT RESPONSIVE TO THE DOSING. OBSERVATION BED ORDERED FOR MONITORING HER OVERNIGHT.
[2020-11-16 16:04] VITALS: BP 113/29
--- NOTE | 2020-11-16 16:57 | NUR ---
ADMISSION NOTE: pt received from PACU to rm 213 @ 1242. Pt oriented to self. Pt hard to arouse. Pt will answer questions but has difficulty following directions. Daughter at bedside who answered most questions. Pt on 4L NC which is baseline, hx of COPD. Pt had LERO, rt groin site C/D/I. Pt reports no pain. Daughter reports that pt takes care of self at home where she lives w/ a cousin. Pt ambulates at home without any assistance. Admission assessment & education provided to daughter. Assessment posted in chart.
[2020-11-16 19:50] VITALS: BP 135/46
--- NOTE | 2020-11-16 22:19 | NUR ---
1948 PATIENT REMAINS LETHARGIC. DOES NOT OPEN EYES BUT DOES RESPOND TO NAME. CAN SAY BIRTHDATE. THEN FALLS BACK TO SLEEP. 2224 MORE AWAKE. WILL STATE NAME, BIRTHDAY AND STATES IS IN SOLARBRUSH. INCONTITENT OF URINE AND SMALL AMOUNT DIARRHEA. PERICARE COMPLETED AND BARRIER CREAM APPLIED. CONTINUE TO ASSES CLOSELY. ENCOURAGE FLUIDS.
[2020-11-17] VITALS (8 sets, daily range): BP systolic 96–135; BP diastolic 42–83
[2020-11-17 06:38] LABS: CALCIUM 9.3 mg/dL (8.5-10.1); CREATININE 1.8 mg/dL (0.6-1.0); POTASSIUM 4.9 mmol/L (3.5-5.1)
--- NOTE | 2020-11-17 08:02 | NUR ---
ASSESSMENT CHARTED. REMAINED SOMNULENT ALL SHIFT. INCONTINENT OF B&B. DIRECTOR SYSTEMS SHE BECAME ORIENTED X 4. STILL HAD TROUBLE STAYING AWAKE. WOULD DRIFT QUICKLY BACK TO SLEEP. CONTINUE PLAN OF CARE. REPORT GIVEN TO DAY SHIFT.
[2020-11-17 08:08] LABS: HEMATOCRIT 27.3 % (37.0-47.0); HEMOGLOBIN 9.2 gm/dL (12.0-15.0); MCH 32.5 pg (26.0-34.0); MCHC 33.6 g/dL (28.0-37.0); MCV 96.8 fL (80.0-100.0); RBC 2.82 mil/uL (4.20-5.00); RDW 13.6 % (10.5-14.5); WBC 14.3 thou/uL (4.0-11.0)
[2020-11-17 08:11] LABS: BE(vivo) 3.1 mmol/L (-2 to +3); HCO3 30.9 mmol/L (22.0-26.0); PCO2 66.3 mmHg (35.0-45.0); PO2 81.2 mmHg (80.0-100.0); pH 7.287 (7.360-7.450); sO2 94.3 % (92.0-98.0)
[2020-11-17 10:21] LABS: DIRECT BILIRUBIN 0.1 mg/dL (<0.1-0.2); TOTAL BILIRUBIN 0.6 mg/dL (0.2-1.0); TOTAL PROTEIN 5.5 g/dL (6.4-8.2)
[2020-11-18 01:15] VITALS: BP 121/40
[2020-11-18 01:18] VITALS: BP 121/40
[2020-11-18 03:23] VITALS: BP 113/37
[2020-11-18 04:19] LABS: CALCIUM 9.2 mg/dL (8.5-10.1); CREATININE 1.5 mg/dL (0.6-1.0); POTASSIUM 4.6 mmol/L (3.5-5.1)
[2020-11-18 04:34] LABS: HEMATOCRIT 26.1 % (37.0-47.0); HEMOGLOBIN 8.9 gm/dL (12.0-15.0); MCH 32.6 pg (26.0-34.0); MCHC 34.2 g/dL (28.0-37.0); MCV 95.4 fL (80.0-100.0); RBC 2.74 mil/uL (4.20-5.00); WBC 12.5 thou/uL (4.0-11.0)
--- NOTE | 2020-11-18 05:27 | NUR ---
UPON SHIFT ASSESSMENT, PT AOX4, NOTABLY DROWSY. PT DENIES PAIN AND SOB WHILE ON 5-5.5L O2 VIA NC. PT WITH SOB WITH EXERTION, USING PERSONAL CPAP AT HS. PT TOLERATING PO INTAKE OF FLUIDS AND HEART HEALTHY DIET WITHOUT ISSUE. PT WITHOUT NAUSEA OR EMESIS. PT INCONTINENT OF BOWEL AND BLADDER, LOOSE STOOLS NOTED. PT WITH INTERMITTENT USE OF BEDPAN. SENSATION INTACT, CAPILLARY REFILL LESS THAN 3SEC, PERIPHERAL PULSES PALPABLE IN ALL EXTREMITIES. PT ENCOURAGED TO NOTIFY STAFF FOR ALL NEEDS, CALL LIGHT WITHIN REACH, BED ALARM ON, BED LOCKED IN LOWEST POSITION, FREQUENT MONITORING WILL CONTINUE.
[2020-11-18 05:33] LABS: BE(vivo) 0.3 mmol/L (-2 to +3); HCO3 26.5 mmol/L (22.0-26.0); PCO2 51.6 mmHg (35.0-45.0); PO2 63.3 mmHg (80.0-100.0); sO2 90.4 % (92.0-98.0)
[2020-11-18 05:35] LABS: pH 7.329 (7.360-7.450)
[2020-11-18 08:00] VITALS: BP 127/41
[2020-11-18 12:00] VITALS: BP 98/52
[2020-11-18 12:38] VITALS: BP 127/41
--- NOTE | 2020-11-18 13:31 | NUR ---
ASSESSMENT CHARTED. PT ALERT AND ORIENTED. VSS. DENIED HAVING PAIN OR DISCOMFORT. SEEN BY DR. MERCADO. ORDERS GIVEN TO DISCHARGE PT TO HOME. DISCHARGE INSTRUCTIONS GIVEN TO PT AND THE DAUGHTER. THEY BOTH VERBERLISED UNDERSTANDING.
== END 2020-11-18 13:32 | disposition home or self-care (01) | DRG 356 ==
LOC: CATH 06:22 → 2N 16:20
PROVIDERS: Internal Medicine Pulmonary Disease; Nurse Practitioner; Nurse Practitioner Adult Health; ADMIT Nuclear Medicine Nuclear Cardiology; ATTEND Nuclear Medicine Nuclear Cardiology
PROC: B4151ZZ Fluoroscopy of Inferior Mesenteric Artery using Low Osmolar Contrast (ICD-10-PCS; principal; 2020-11-16)
PROC: B211YZZ Fluoroscopy of Multiple Coronary Arteries using Other Contrast (ICD-10-PCS; principal; 2020-11-16)
PROC: B4181ZZ Fluoroscopy of Bilateral Renal Arteries using Low Osmolar Contrast (ICD-10-PCS; principal; 2020-11-16)
PROC: B41D1ZZ Fluoroscopy of Aorta and Bilateral Lower Extremity Arteries using Low Osmolar Contrast (ICD-10-PCS; principal; 2020-11-16)
PROC: 047 Lower Arteries, Dilation (ICD-10-PCS; principal; 2020-11-16)
PROC: B4141ZZ Fluoroscopy of Superior Mesenteric Artery using Low Osmolar Contrast (ICD-10-PCS; principal; 2020-11-16)
PROC: 047D3DZ Dilation of Left Common Iliac Artery with Intraluminal Device, Percutaneous Approach (ICD-10-PCS; principal; 2020-11-16)
PROC: 4A023N7 Measurement of Cardiac Sampling and Pressure, Left Heart, Percutaneous Approach (ICD-10-PCS; principal; 2020-11-16)
PROC: 5A09357 Assistance with Respiratory Ventilation, Less than 24 Consecutive Hours, Continuous Positive Airway Pressure (ICD-10-PCS; 2020-11-17)
PROC: 5A09357 Assistance with Respiratory Ventilation, Less than 24 Consecutive Hours, Continuous Positive Airway Pressure (ICD-10-PCS; 2020-11-18)
DX: K55.1 Chronic vascular disorders of intestine (principal); G93.41 Metabolic encephalopathy; J96.21 Acute and chronic respiratory failure with hypoxia; J96.22 Acute and chronic respiratory failure with hypercapnia; N17.9 Acute kidney failure, unspecified; I48.21 Permanent atrial fibrillation; I13.0 Hypertensive heart and chronic kidney disease with heart failure and stage 1 through stage 4 chronic kidney disease, or unspecified chronic kidney disease; I50.32 Chronic diastolic (congestive) heart failure; I73.9 Peripheral vascular disease, unspecified; I25.10 Atherosclerotic heart disease of native coronary artery without angina pectoris; E78.5 Hyperlipidemia, unspecified; N18.9 Chronic kidney disease, unspecified; K21.9 Gastro-esophageal reflux disease without esophagitis; J44.9 Chronic obstructive pulmonary disease, unspecified; G25.81 Restless legs syndrome; F32.9 Major depressive disorder, single episode, unspecified; F41.9 Anxiety disorder, unspecified; K52.9 Noninfective gastroenteritis and colitis, unspecified; R53.81 Other malaise; G47.00 Insomnia, unspecified; D63.8 Anemia in other chronic diseases classified elsewhere; G47.33 Obstructive sleep apnea (adult) (pediatric); Z99.81 Dependence on supplemental oxygen; Z88.6 Allergy status to analgesic agent; Z88.2 Allergy status to sulfonamides; Z90.710 Acquired absence of both cervix and uterus; Z98.42 Cataract extraction status, left eye; Z98.41 Cataract extraction status, right eye; Z90.49 Acquired absence of other specified parts of digestive tract; Z86.73 Personal history of transient ischemic attack (TIA), and cerebral infarction without residual deficits; Z71.6 Tobacco abuse counseling; Z23 Encounter for immunization
CPT/HCPCS: 10081

== ENCOUNTER 2020-11-22 14:01 | Emergency (ER) | payer OTHER, BC ==
[~2020-11-22] VITALS: Ht 160 cm; Wt 67.6 kg
[~2020-11-22 14:01] MED LIST changes: +FLONASE 0.05%50 MCG NASAL; +FUROSEMIDE 20 M20 MG PO; +KLOR-CON 1010 MEQ PO; +OXYGEN MISCELL
[2020-11-22 15:04] LABS: BASOPHILS 0.4 % (0.0-2.0); EOSINOPHILS 1.1 % (0.0-3.0); HEMATOCRIT 24.4 % (37.0-47.0); HEMOGLOBIN 8.3 gm/dL (12.0-15.0); MCH 32.4 pg (26.0-34.0); MCV 95.3 fL (80.0-100.0); MONOCYTES 5.5 % (1.0-8.0); PLATELET COUNT 279 thou/uL (150-400); RBC 2.56 mil/uL (4.20-5.00); RDW 13.5 % (10.5-14.5); WBC 10.2 thou/uL (4.0-11.0)
[2020-11-22 15:20] LABS: ANION GAP < 0 mmol/L (7-16); BUN 32 mg/dL (7-18); CALCIUM 9.1 mg/dL (8.5-10.1); CHLORIDE 101 mmol/L (98-107); CO2 38 mmol/L (21-32); CREATININE 1.1 mg/dL (0.6-1.0); GLUCOSE 149 mg/dL (74-106); POTASSIUM 5.6 mmol/L (3.5-5.1); SODIUM 136 mmol/L (136-145)
[2020-11-22 15:25] LABS: ALBUMIN 2.7 g/dL (3.4-5.0); DIRECT BILIRUBIN < 0.1 mg/dL (<0.1-0.2); SGOT 13 U/L (15-37); SGPT 19 U/L (30-65); TOTAL BILIRUBIN 0.4 mg/dL (0.2-1.0); TOTAL PROTEIN 5.5 g/dL (6.4-8.2)
[2020-11-22 15:51] LABS: URINE BILIRUBIN NEGATIVE (Negative); URINE BLOOD NEGATIVE (Negative); URINE CLARITY CLEAR; URINE COLOR YELLOW; URINE GLUCOSE-RANDOM* NEGATIVE (Negative); URINE KETONES NEGATIVE (Negative); URINE LEUKOCYTES-REFLEX TRACE (Negative); URINE PROTEIN (DIPSTICK) NEGATIVE (Negative); URINE UROBILINOGEN 0.2 E.U./dl (0.2-1.0)
[2020-11-22 16:01] LABS: URINE NITRITE-REFLEX POSITIVE (Negative)
[2020-11-22 16:18] LABS: SQUAMOUS None Seen /LPF (0-3); URINE RBC None Seen /HPF (NONE SEEN); URINE WBC-REFLEX 6-15 Few /HPF (0-5)
[2020-11-22 16:19] LABS: BACTERIA-REFLEX >30 Many /HPF (None Seen); WBC CLUMPS Few (None Seen)
[2020-11-22] MEDS ORDERED: DIFLUCAN150 MG PO (17:56)
[2020-11-22] MEDS ORDERED: CIPROFLOXACIN500 M1 PO (17:56)
[2020-11-22] MEDS ORDERED: FLAGYL500 M1 PO (17:56)
[2020-11-22 18:03] VITALS: BP 144/55
== END 2020-11-22 18:03 | disposition home or self-care (01) ==
LOC: ER 14:01
PROVIDERS: Emergency Medicine
DX: K57.32 Diverticulitis of large intestine without perforation or abscess without bleeding (principal); N39.0 Urinary tract infection, site not specified; J44.9 Chronic obstructive pulmonary disease, unspecified; I25.10 Atherosclerotic heart disease of native coronary artery without angina pectoris; I73.9 Peripheral vascular disease, unspecified; I11.0 Hypertensive heart disease with heart failure; I50.9 Heart failure, unspecified; I48.91 Unspecified atrial fibrillation; F41.9 Anxiety disorder, unspecified; F32.9 Major depressive disorder, single episode, unspecified; Z90.49 Acquired absence of other specified parts of digestive tract; Z90.710 Acquired absence of both cervix and uterus; Z90.89 Acquired absence of other organs; Z98.890 Other specified postprocedural states; Z79.51 Long term (current) use of inhaled steroids; Z79.899 Other long term (current) drug therapy; Z79.1 Long term (current) use of non-steroidal anti-inflammatories (NSAID); Z88.6 Allergy status to analgesic agent; Z88.5 Allergy status to narcotic agent; Z88.2 Allergy status to sulfonamides; Z88.8 Allergy status to other drugs, medicaments and biological substances; Z87.891 Personal history of nicotine dependence

== ENCOUNTER → 2020-12-04 | Outpatient (CLI) | payer OTHER, BC ==
[~2020-12-04] MED LIST changes: +CIPROFLOXACIN500 M1 PO; +DIFLUCAN150 MG PO; +FLAGYL500 M1 PO
== END ==
LOC: SJCVC 09:08
PROVIDERS: ATTEND Internal Medicine Cardiovascular Disease
DX: R94.31 Abnormal electrocardiogram [ECG] [EKG] (principal); I45.89 Other specified conduction disorders; I25.10 Atherosclerotic heart disease of native coronary artery without angina pectoris; I73.9 Peripheral vascular disease, unspecified; K55.1 Chronic vascular disorders of intestine; I10 Essential (primary) hypertension; E78.00 Pure hypercholesterolemia, unspecified; J44.1 Chronic obstructive pulmonary disease with (acute) exacerbation; R19.7 Diarrhea, unspecified; R00.1 Bradycardia, unspecified; F41.8 Other specified anxiety disorders; K21.9 Gastro-esophageal reflux disease without esophagitis; J44.9 Chronic obstructive pulmonary disease, unspecified; Z82.49 Family history of ischemic heart disease and other diseases of the circulatory system; Z88.2 Allergy status to sulfonamides; Z88.5 Allergy status to narcotic agent; Z88.8 Allergy status to other drugs, medicaments and biological substances; Z79.899 Other long term (current) drug therapy; Z87.891 Personal history of nicotine dependence

== ENCOUNTER 2021-03-15 09:16 | Emergency (ER) | payer OTHER, BC ==
[~2021-03-15] VITALS: Ht 160 cm; Wt 66.2 kg
--- NOTE | ~2021-03-15 | EMS ---
[facility] [address] [place] [address] EMS Patient Care Report Name: VICENTE TORRES Room #: PRE M.RDaniella#: [id number] Admission: Attend Phys: Discharge: Date of : 44 Report #: [id number] THIS REPORT FOR: //name// Report Transmitted: 03/15/2021 09:02 EMS Care Summary [facility] Incident [id number] @ 03/15/2021 08:29 Incident Location [address] [place] [address] Patient VICENTE TORRES Female, 80 Years 1940 Patient Address [address] [place] [address] Patient History Chronic Obstructive Pulmonary Disease (COPD),Hypertension (HTN),Hyperlipidemia,Atrial Fibrillation,Hypothyroidism, Patient Allergies No known allergies, Patient Medications Diltiazem, Atorvastatin, Sertraline, Metoclopramide, Oxybutynin, Pantoprazole, Levothyroxine, Valsartan, Clopidogrel, Chief Complaint Difficulty breathing Disposition Transported No Lights/[place] Dispatch Reason Breathing Problem Transported To [facility] Narrative Dispatched to medical alarm activation with difficulty breathing. Upon arrival pt found sitting upright in recliner in no apparent distress on home O2. Pt [facility] [address] [place] [address] EMS Patient Care Report Name: VICENTE TORRES Room #: PRE Matthias#: [id number] Admission: Attend Phys: Discharge: Date of : 44 Report #: [id number] complains of difficulty breathing since yesterday afternoon. Pt states she started having difficulty breathing and a cough develop yesterday and it has increased slightly in severity. Pt states he O2 level dropped to 90% and she increased her O2 to 5lpm. Pt also complains of chest wall pain that developed from coughing. Pt denies dizziness, nausea or vomiting. Pt denies weakness or fever. Physician Coder assessment. Stretcher. O2, cardiac cath technician, 12-lead, IV, BG, and VS obtained. Pt transported with no change in pt condition to ED for further evaluation and treatment by MD. Initial Vitals @08:53P: 76,R: 23,SpO2: 92, @08:59P: 83,R: 18,SpO2: 96, @08:59P: 77,R: 20,BP: 141/67,GCS: 15,Glucose: 126,SpO2: 94,Revised Trauma: 12, @08:44P: 62,R: 22,BP: 147/88,GCS: 15,SpO2: 90,Revised Trauma: 12, Impression Shortness of breath Procedures @08:59 12-Lead ECG Response: UnchangedSucceeded @08:53 12-Lead ECG Response: UnchangedSucceeded @08:45 ALS Assessment Response: UnchangedSucceeded @08:47 Stretcher Response: Unchanged @08:47 Oxygen FlowRate: 6 Device: Nasal Cannula (NC) Response: UnchangedSucceeded @08:55 IV Therapy - Saline Lock 10cc (20 ga) Site: Antecubital-Left Response: UnchangedSucceeded Timeline 08:27,Call Received 08:27,Psap Call 08:29,Dispatched 08:31,En Route 08:43,On Scene 08:43,At Patient 08:44,BP: 147/88 M,PULSE: 62,RR: 22 R,SPO2: 90 Ox,ETCO2: ,BG: ,PAIN: ,GCS: 15, 08:45,ALS Assessment,Response: UnchangedSucceeded, 08:47,Oxygen FlowRate: 6 Device: Nasal Cannula (NC) Response: UnchangedSucceeded, 08:47,Stretcher,Response: Unchanged 08:50,Depart Scene 08:53,12-Lead ECG,Response: UnchangedSucceeded, 08:53,BP: / M,PULSE: 76,RR: 23 R,SPO2: 92 Ox,ETCO2: ,BG: ,PAIN: ,GCS: , 08:55,IV Therapy - Saline Lock 10cc 20 ga Site: Antecubital-[facility],Response: [place] [address] EMS Patient Care Report Name: TORRESTJHENRYTHI TYRA Room #: [facility] M.R.#: [id number] Admission: Attend Phys: Discharge: Date of : 44 Report #: [id number] UnchangedSucceeded, 08:59,12-Lead ECG,Response: UnchangedSucceeded, 08:59,BP: / M,PULSE: 83,RR: 18 R,SPO2: 96 Ox,ETCO2: ,BG: ,PAIN: ,GCS: , 08:59,BP: 141/67 M,PULSE: 77,RR: 20 R,SPO2: 94 Ox,ETCO2: ,B,PAIN: ,GCS: 15, 09:10,At Destination 09:38,Call Closed Disclaimer v1.1 Copyright 2021 [employer] This EMS Care Summary contains data elements from the applicable legal record (which may be displayed differently). It is designed to provide pertinent information for the following purposes: continuity of care, clinical quality, and state data reporting. The complete legal record is available to ED staff and administrators of the receiving hospital in [place] [employer]'s Patient Tracker. All data is provided "as is."
--- NOTE | 2021-03-15 09:50 | EKG ---
[address] [place] [address] ELECTROCARDIOGRAM REPORT Name: VICENTE TORRES Room #: PRE [facility].#: [id number] Admission: Attend Phys: Discharge: Date of : 44 Report #: [id number] [facility] ED Test Date: 2021-03-15 Test Time: 09:25:51 Pat Name: VICENTE TORRES Department: Room: Gender: F Quality Improvement Specialist: mavis adams : 1940 Requested By: Geo [place] Order Number: [id number] MD: Giuseppe Llamas Measurements Intervals [place] Rate: 75 P: 90 PA: 179 QRS: 10 QRSD: 115 T: 87 QT: 432 QTc: 483 Interpretive Statements Sinus rhythm Incomplete left bundle branch block Left ventricular hypertrophy Compared to ECG 08/11/2020 08:11:34 Early repolarization no longer present Prolonged QT interval no longer present Electronically Signed On 03-15-2021 9:50:08 PATTERN CHANGER AND REPAIRER by Giuseppe Llamas [email or web address] <ELECTRONICALLY SIGNED> By: Giuseppe Llamas MD, [facility] 03/15/2150 4 Giuseppe Llamas MD, FACC /EPI
[2021-03-15 09:52] LABS: CALCIUM 10.1 mg/dL (8.5-10.1); CREATININE 1.5 mg/dL (0.6-1.0); POTASSIUM 4.8 mmol/L (3.5-5.1)
[2021-03-15 09:58] LABS: ABSOLUTE NEUTROPHILS 16.5 thou/uL (1.4-8.2); BASOPHILS 0.4 % (0.0-2.0); EOSINOPHILS 0.8 % (0.0-3.0); HEMATOCRIT 30.4 % (37.0-47.0); HEMOGLOBIN 10.2 gm/dL (12.0-15.0); LYMPHOCYTES 5.1 % (24.0-44.0); MCH 31.2 pg (26.0-34.0); MCHC 33.5 g/dL (28.0-37.0); MONOCYTES 4.5 % (1.0-8.0); PLATELET COUNT 337 thou/uL (150-400); POLYS 89.2 % (36.0-66.0); RBC 3.27 mil/uL (4.20-5.00); WBC 18.4 thou/uL (4.0-11.0)
[2021-03-15] MEDS ORDERED: DEXAMETHASONE6 MG PO (11:18)
[2021-03-15] MEDS ORDERED: LEVOFLOXACIN500 MG PO (11:19)
[2021-03-15 11:39] VITALS: BP 142/50
[2021-03-15 13:16] VITALS: BP 142/50
== END 2021-03-15 13:17 | disposition home or self-care (01) ==
LOC: ER 09:16
PROVIDERS: Emergency Medicine
DX: U07.1 COVID-19 (principal); J44.9 Chronic obstructive pulmonary disease, unspecified; I11.0 Hypertensive heart disease with heart failure; I50.9 Heart failure, unspecified; F41.9 Anxiety disorder, unspecified; F32.9 Major depressive disorder, single episode, unspecified; K21.9 Gastro-esophageal reflux disease without esophagitis; Z90.710 Acquired absence of both cervix and uterus; Z90.49 Acquired absence of other specified parts of digestive tract; Z79.899 Other long term (current) drug therapy; Z87.891 Personal history of nicotine dependence; Z88.2 Allergy status to sulfonamides; Z88.6 Allergy status to analgesic agent